=== PATIENT | female | born 1985 | race Caucasian/White ===

== ENCOUNTER 2021-06-30 09:03 | Emergency (ER) | payer OTHER, SELFPAY ==
--- NOTE | 2021-06-30 09:05 | ED.GENADUL_ITS ---
Discharge Plan Disposition Patient Disposition: HOME Condition: Fair Discharge Details Clinical Impression: Anxiety and depression Primary Care Provider: Odessa Velazquez ED Provider: Odessa Velazquez Home Meds and New Rx's Prescriptions: New clonazepam 1 mg tablet 1 mg PO BID PRNQty: 6 RF: 0 Continued escitalopram oxalate 10 mg Tablet 15 mg PO DAILY RF: 0 aripiprazole 2 mg Tablet 2 mg PO DAILY RF: 0 Discharge Instructions Instructions: Anxiety (ED) Referrals: Practice Provider [Provider Group] (follow up with outpatient psychiatry as soon as possible. return to ED sooner for new or worseniing issues or concerns) Medical Decision Making patient presents with poorly controlled anxiety and depression, stating she having a panic attack. will obtain medical screening. given ativan 0.5 mg PO for symptoms Medical screening cleared for psychiatric consultation which is placed with Dr Duenas recommendations for discharge to home with outpatient f/u with her psychiatric team in 3 days when she returns home. Lab Data Lab results reviewed: Yes I reviewed the patient's lab results. Lab results narrative: Laboratory Tests Range/Units 06/30/21 06/30/21 06/30/21 09:39 09:39 09:45 WBC (4.4-10.8) 10^3/uL RBC (3.93-5.22) 10^6/uL Hgb (11.2-15.7) g/dL Hct (36.0-46.0) % MCV (80-95) fL MCH (27.0-33.0) pg MCHC (32.0-36.0) % RDW (11.7-14.6) % Plt Count (130-400) 10^3/uL MPV (8.0-11.0) fL Immature Gran % Neutrophils % Lymphocytes % Monocytes % Eosinophils % Basophils % Nucleated RBC % % Absolute Neutrophils (1.2-6.7) 10^3/uL Absolute Lymphocytes (1.2-3.4) 10^3/uL Absolute Monocytes (0.1-0.8) 10^3/uL Absolute Eosinophils (0.0-0.7) 10^3/uL Absolute Basophils (0.0-0.2) 10^3/uL Sodium (136-145) mmol/L 139 Potassium (3.5-5.1) mmol/L 3.6 Chloride (98-107) mmol/L 103 Carbon Dioxide (21.0-32.0) mmol/L 30.4 Anion Gap (3-11) mmol/L 5.6 BUN (7-18) mg/dL 5 L Creatinine (0.55-1.02) mg/dL 0.7 Estimated GFR/1.73 m2 (mL/min/1.73m2) >= 60.00 Glucose (74-106) mg/dL 110 H Calcium (8.5-10.1) mg/dL 9.1 Total Bilirubin (0.2-1.0) mg/dL 0.7 AST (15-37) U/L 12 L ALT (14-59) U/L 24 Alkaline Phosphatase (46-116) U/L 27 L Total Protein (6.4-8.2) g/dL 8.1 Albumin (3.4-5.0) g/dL 4.2 TSH (0.36-3.74) uIU/mL 1.14 Urine Color (Yellow) Yellow Urine Clarity (Clear) Clear Urine pH (5-8) 7.0 Ur Specific [place] (1.005-1.025) 1.020 Urine Protein (Negative) mg/dL Negative Urine Ketones (Negative) mg/dL 15 H Urine Blood (Negative) Moderate H Urine Nitrite (Negative) Negative Urine Bilirubin (Negative) Negative Urine Urobilinogen (Up TO 0.2) EU/dL 0.2 Ur Leukocyte Esterase (Negative) Negative Urine RBC (0-2) HPF 5-10 H Urine WBC (0-5) HPF 0-2 Ur Epithelial Cells (Negative) HPF Rare Urine Crystals (Negative) HPF Negative Urine Bacteria (Negative) HPF Negative Urine Casts (Negative) LPF Negative Urine Mucus (Negative) Negative Ur Culture Indicated? No Urine Glucose (Negative) mg/dL Negative Salicylates (<2.8) mg/dL Urine Opiates Screen (Negative) Negative Urine Methadone Screen (Negative) Negative Acetaminophen (10-30) ug/mL Ur Barbiturates Screen (Negative) Negative Ur Tricyclics Screen (Negative) Negative Ur Amphetamines Screen (Negative) Negative U Benzodiazepines Scrn (Negative) Negative Urine Cocaine Screen (Negative) Negative Ur THC Screen (Negative) Negative Ethyl Alcohol (<3) mg/dL < 3.0 Range/Units 06/30/21 06/30/21 09:45 10:00 WBC (4.4-10.8) 10^3/uL 5.83 RBC (3.93-5.22) 10^6/uL 4.51 Hgb (11.2-15.7) g/dL 13.3 Hct (36.0-46.0) % 40.4 MCV (80-95) fL 89.6 MCH (27.0-33.0) pg 29.5 MCHC (32.0-36.0) % 32.9 RDW (11.7-14.6) % 12.0 Plt Count (130-400) 10^3/uL 303 MPV (8.0-11.0) fL 9.3 Immature Gran % 0.3 Neutrophils % 71.5 Lymphocytes % 17.0 Monocytes % 9.3 Eosinophils % 0.5 Basophils % 1.4 Nucleated RBC % % 0 Absolute Neutrophils (1.2-6.7) 10^3/uL 4.17 Absolute Lymphocytes (1.2-3.4) 10^3/uL 0.99 L Absolute Monocytes (0.1-0.8) 10^3/uL 0.54 Absolute Eosinophils (0.0-0.7) 10^3/uL 0.03 Absolute Basophils (0.0-0.2) 10^3/uL 0.08 Sodium (136-145) mmol/L Potassium (3.5-5.1) mmol/L Chloride (98-107) mmol/L Carbon Dioxide (21.0-32.0) mmol/L Anion Gap (3-11) mmol/L BUN (7-18) mg/dL Creatinine (0.55-1.02) mg/dL Estimated GFR/1.73 m2 (mL/min/1.73m2) Glucose (74-106) mg/dL Calcium (8.5-10.1) mg/dL Total Bilirubin (0.2-1.0) mg/dL AST (15-37) U/L ALT (14-59) U/L Alkaline Phosphatase (46-116) U/L Total Protein (6.4-8.2) g/dL Albumin (3.4-5.0) g/dL TSH (0.36-3.74) uIU/mL Urine Color (Yellow) Urine Clarity (Clear) Urine pH (5-8) Ur Specific [place] (1.005-1.025) Urine Protein (Negative) mg/dL Urine Ketones (Negative) mg/dL Urine Blood (Negative) Urine Nitrite (Negative) Urine Bilirubin (Negative) Urine Urobilinogen (Up TO 0.2) EU/dL Ur Leukocyte Esterase (Negative) Urine RBC (0-2) HPF Urine WBC (0-5) HPF Ur Epithelial Cells (Negative) HPF Urine Crystals (Negative) HPF Urine Bacteria (Negative) HPF Urine Casts (Negative) LPF Urine Mucus (Negative) Ur Culture Indicated? Urine Glucose (Negative) mg/dL Salicylates (<2.8) mg/dL < 2.8 Urine Opiates Screen (Negative) Urine Methadone Screen (Negative) Acetaminophen (10-30) ug/mL < 2 Ur Barbiturates Screen (Negative) Ur Tricyclics Screen (Negative) Ur Amphetamines Screen (Negative) U Benzodiazepines Scrn (Negative) Urine Cocaine Screen (Negative) Ur THC Screen (Negative) Ethyl Alcohol (<3) mg/dL HPI General Mode of arrival: ambulatory . Limitations to Documentation: no limitations . Information obtained by: patient . HPI Narrative: this is a 36 year old female with long standing history of anxiety depression, OCD who has required inpatient hospitalization for med and symptoms management. she is not homicidal or suicidal, with no history of either. she is on a one month leave of absence from work d/t her symptoms. she is here locally staying with her mom for support. recently started on abilify with no improvement in symptoms. she [place] outpatient psychiatrist [place] of state who oversees her care. they referred her to the ED as she feels in crisis Related Data Home Medications Medication Instructions Recorded Confirmed aripiprazole 2 mg PO DAILY 06/30/21 06/30/21 clonazepam 1 mg PO BID PRN #6 tab 06/30/21 escitalopram oxalate 15 mg PO DAILY 06/30/21 06/30/21 Previous Rx's Medication Instructions Recorded clonazepam 1 mg PO BID PRN #6 tab 06/30/21 Allergies Allergy/AdvReac Type Severity Reaction Status Date / Time No Known Drug Allergies Allergy Unverified 06/30/21 09:10 Review of Systems Constitutional Constitutional: Reports difficulty sleeping and Reports poor appetite Eyes Eyes: Denies change in vision ENT Ears, Nose, Mouth, and Throat: Denies vertigo and Denies dizziness Cardiovascular Cardiovascular: Reports chest pain Respiratory Respiratory: Denies chest congestion and Denies cough Gastrointestinal Gastrointestinal: Denies abdominal pain, Denies melena, Reports nausea and Denies vomiting Neurologic Neurologic: Denies vertigo, Denies dizziness and Denies seizure-like activity Psychiatric Psychiatric: Reports abnormal sleep pattern, Reports anxiety, Reports change in appetite, Reports depression, Reports anhedonia, Reports panic attacks, Denies visual hallucinations, Denies hallucinations, Denies homicidal ideation and Denies suicidal ideation [facility] Social History Smoking/Tobacco Use Status: Never Smoking risk assessment performed?: Yes Alcohol Intake: never Substance use type: does not use Do you feel safe at home: Yes Do you feel safe in your relationship?: Yes Exam Const General: cooperative, acute distress moderate and anxious (crying, shaking) Nutritional Appearance: thin Orientation: alert, awake and oriented x3 HENMT Head: normal to inspection, normocephalic and atraumatic Mouth: oral mucosae normal Resp Effort & Inspection: normal respiratory effort Auscultation: clear to auscultation bilaterally Cardio Rate: regular rate Rhythm: regular rhythm GI Inspection: normal to inspection Palpation: soft Auscultation: normal bowel sounds Skin General skin exam: no rashes or lesions noted Neuro General: patient alert, patient awake and patient oriented x3 Extrem General: normal to inspection, full ROM and no pedal edema Psych Appearance: disheveled Mental Status: mental status grossly normal Speech and Movement: speech and movement normal Mood: anxious mood Affect: sad and anxious affect Attitude: cooperative Thought Process: normal Thought Content: normal
[2021-06-30 09:06] VITALS: BP 159/98; PULSE 123; RESP 14; TEMP 36.3; O2SAT 97
--- NOTE | 2021-06-30 09:15 | RT.EKG_ITS ---
APPROVED REPORT Exam: Resting ECG Reason for Exam: chest pain Patient Location: E HR:86 bpm ECG Measurements Heart Rate 86 AXIS CA 123 P 29 QRSd 83 QRS 67 QT 379 T 14 QTc 454 Conclusion Sinus rhythm...normal P axis, V-rate 60- 99. Sinus. No STEMI. I have reviewed and interpreted ECG and agree with software generated interpretation.
[2021-06-30] MEDS: LORazepam 0.5 MG TAB PO (09:52)
[2021-06-30 09:58] LABS: Bilirubin Negative (Negative); Blood Moderate (Negative); Clarity Clear (Clear); Glucose Negative (Negative); Ketones 15 mg/dL (Negative); Leukocyte Esterase Negative (Negative); Nitrite Negative (Negative); Urobilinogen 0.2 EU/dL (Up TO 0.2)
[2021-06-30 10:00] LABS: Abs Immature Grans 0.02 10^3/uL (0.0-0.06); Absolute Basophil Count 0.08 10^3/uL (0.0-0.2); Absolute Eosinophil Count 0.03 10^3/uL (0.0-0.7); Absolute Lymphocyte Count 0.99 10^3/uL (1.2-3.4); Absolute Monocyte Count 0.54 10^3/uL (0.1-0.8); Absolute Neutrophil Count 4.17 10^3/uL (1.2-6.7); Basophils % 1.4; Eosinophils % 0.5; HCT 40.4 % (36.0-46.0); HGB 13.3 g/dL (11.2-15.7); Immature Grans % 0.3; MCH 29.5 pg (27.0-33.0); MCHC 32.9 % (32.0-36.0); MCV 89.6 fL (80-95); MPV 9.3 fL (8.0-11.0); Monocytes % 9.3; Neutrophils % 71.5; Nucleated RBC 0 %; Platelet Count 303 10^3/uL (130-400); RBC 4.51 10^6/uL (3.93-5.22); RDW-SD 39.3 fL; WBC 5.83 10^3/uL (4.4-10.8)
[2021-06-30 10:05] LABS: *AMPHETAMINES SCREEN URINE Negative (Negative); *BARBITURATES SCREEN URINE Negative (Negative); *BENZODIAZEPINES SCREEN URINE Negative (Negative); Cannabinoids THC Negative (Negative); Cocaine Screen,Urine Negative (Negative); METHADONE URINE SCREEN Negative (Negative); OPIATES URINE SCREEN Negative (Negative)
[2021-06-30 10:07] LABS: Tricyclic Antidepressants Negative (Negative)
[2021-06-30 10:08] LABS: Bacteria Negative HPF (Negative); C & S Indicated? No; Casts Negative LPF (Negative); Crystals Negative HPF (Negative); Epithelial Cells Rare HPF (Negative); Mucus Negative (Negative); WBC 0-2 HPF (0-5)
[2021-06-30 10:13] LABS: ALT 24 U/L (14-59); AST 12 U/L (15-37); Albumin 4.2 g/dL (3.4-5.0); Alkaline Phosphatase 27 U/L (46-116); Anion Gap 5.6 mmol/L (3-11); BUN 5 mg/dL (7-18); Bilirubin, Total 0.7 mg/dL (0.2-1.0); CO2 30.4 mmol/L (21.0-32.0); CREATININE 0.7 mg/dL (0.55-1.02); Calcium 9.1 mg/dL (8.5-10.1); Chloride 103 mmol/L (98-107); ETHANOL BLOOD < 3.0 mg/dL (<3); Glucose 110 mg/dL (74-106); Potassium 3.6 mmol/L (3.5-5.1); Sodium 139 mmol/L (136-145); TSH (W/Ref FT4) 1.14 uIU/mL (0.36-3.74); Total Protein 8.1 g/dL (6.4-8.2)
[2021-06-30 10:30] LABS: Acetaminophen < 2 ug/mL (10-30); Salicylate < 2.8 mg/dL (<2.8)
[2021-06-30 10:41] VITALS: BP 128/84; PULSE 74; TEMP 36.7; O2SAT 98
--- NOTE | 2021-06-30 11:55 | NUR.NOTE ---
Nursing Note: Assumed care at this time.
--- NOTE | 2021-06-30 12:50 | NUR.NOTE ---
Nursing Note:Pt provided lunch tray. Mother offered lunch as well, declined.
--- NOTE | 2021-06-30 13:46 | PSYCO_ITS ---
Date of service: 06/30/21 Time of Service: 13:46 History of Present Illness History of Present Illness Chief Complaint: I can't function Narrative: 4 hour telepsychiatry consultation requested by Odessa Velazquez for assessment of acute anxiety and recommendations for management. Acute symptoms have included intense anxiety and fear with physical symptoms including tremors, racing heartbeat, lightheadedness. She's also had profound di sruptions to sleep with three days of insomnia. Psycho motor activation is also noted with restlessness, pacing, hand ringing. Onset of his symptoms began approximately six months ago upon gradual discontinuation of Lexapro which she had taken for depression and anxiety to get affect. She believes she no longer needed and stopped it on her own over the course of a few weeks. Symptoms returned and intensified gradually over the ensuing months. The last three months have seen an increasing intensification of anxiety symptoms, depression including low mood, disturbed sleep, decreased appetite with weight loss of 20 pounds. She also identifies symptoms of obsessive compulsive disorder including intense nonstop rumination and compulsions to seek reassurance from others. She has been on medical leave and completely disabled due to the symptoms for approximately the last month. She recently traveled from [place] [facility] to her mothers in [place] due to the severity of her symptoms. Also she reports ending in a romantic relationship or taking a break due to the severity of her symptoms. She denies manic symptoms or psychotic symptoms. She denies any current suicidal ideation. She has no past history of self harm. She reports onset of anxiety in childhood. She experienced a traumatic of her father at age 14 from cancer. She begin therapy in high school and continue to college. She took prazosin in college at [employer] [employer] for duration unknown. She did not find a particular helpful. She has engaged in counseling on and off throughout high school college and early adulthood. She had been prescribed Lexapro 10 mg daily by her primary care provider. She stopped this on her own when she felt like she had fully recovered. In late May, she was psychiatrically hospitalized for approximately one week at [facility] outside of [place]. She reported that Lexapro was subsequently increased to 20 mg daily. Also Abilify 2 mg daily was recommended, though she only started taking that two days ago. She has a new psychiatrist at [facility] as well as an outpatient therapist. Her psychologist at [facility] recently also prescribed clonazepam 0.5 mg twice daily, which she is unable to access because they are at a pharmacy in [place]. In addition to [facility] mental health treatment, she has been referred to a program at [facility] that sounds like an intensive outpatient program or partial hospital program. She indicates that she received a call from them yesterday, but has been unable to return the call. While in the Emergency Department, she received a lorazepam 0.5 mg time one to moderate effect. She further indicates that she plans to return home to [place] in the next few days and engage in the program at [facility], but is having difficulty managing etreme anxiety and panic in the interval. [facility] of [facility] reveals an active presciption for clonazepam 0.5 mg BID available for lemon picker in [place]. We discuss discharge from the ED with a 3 day supply of clonazepam 1 mg BID with a plan to follow up with outpatient providers and IOP/PHP program to which she has already been confirmed. She is agreeable to this and plan is discussed with Odessa Velazquez, who is also in agreement. Consults Consult date: 06/30/21 Assessment and Plan Assessment and plan (1) Panic anxiety syndrome: Status: Acute Assessment and plan: clonazepam 1 mg BID x 3 days Follow up with existing program and providers in [place] upon discharge If sx worsen, seek emergency or crisis evaluation Review of Systems All systems reviewed & are unremarkable except as noted in HPI and below PFSH Social History Smoking/Tobacco Use Status: Never Smoking risk assessment performed?: Yes Alcohol Intake: never Substance use type: does not use Do you feel safe at home: Yes Do you feel safe in your relationship?: Yes Exam Psych Appearance: other (thin, shaky) Mental Status: other (depressed, hopeless, helpless) Speech and Movement: pressured speech and restless Mood: anxious mood, dysthymic mood and other (depressed, hopeless, helpless) Affect: sad and anxious affect Attitude: cooperative Thought Process: perseverating and other (obsessive rumination) Thought Content: compulsions Insight: insight good Judgment: judgment good Results Last Vital Signs Temp 36.7 C 06/30/21 10:41 Pulse 74 06/30/21 10:41 Resp 14 06/30/21 09:06 BP 128/84 06/30/21 10:41 Pulse Ox 98 06/30/21 10:41 Labs Result diagrams: 06/30/21 09:45 06/30/21 09:45 Labs: Laboratory Results - last 24 hr 06/30/21 06/30/21 06/30/21 09:39 09:39 09:45 WBC RBC Hgb Hct MCV MCH MCHC RDW Plt Count MPV Immature Gran % Neutrophils % Lymphocytes % Monocytes % Eosinophils % Basophils % Nucleated RBC % Absolute Neutrophils Absolute Lymphocytes Absolute Monocytes Absolute Eosinophils Absolute Basophils Sodium 139 Potassium 3.6 Chloride 103 Carbon Dioxide 30.4 Anion Gap 5.6 BUN 5 L Creatinine 0.7 Estimated GFR/1.73 m2 >= 60.00 Glucose 110 H Calcium 9.1 Total Bilirubin 0.7 AST 12 L ALT 24 Alkaline Phosphatase 27 L Total Protein 8.1 Albumin 4.2 TSH 1.14 Urine Color Yellow Urine Clarity Clear Urine pH 7.0 Ur Specific [place] 1.020 Urine Protein Negative Urine Ketones 15 H Urine Blood Moderate H Urine Nitrite Negative Urine Bilirubin Negative Urine Urobilinogen 0.2 Ur Leukocyte Esterase Negative Urine RBC 5-10 H Urine WBC 0-2 Ur Epithelial Cells Rare Urine Crystals Negative Urine Bacteria Negative Urine Casts Negative Urine Mucus Negative Ur Culture Indicated? No Urine Glucose Negative Salicylates Urine Opiates Screen Negative Urine Methadone Screen Negative Acetaminophen Ur Barbiturates Screen Negative Ur Tricyclics Screen Negative Ur Amphetamines Screen Negative U Benzodiazepines Scrn Negative Urine Cocaine Screen Negative Ur THC Screen Negative Ethyl Alcohol < 3.0 06/30/21 06/30/21 09:45 10:00 WBC 5.83 RBC 4.51 Hgb 13.3 Hct 40.4 MCV 89.6 MCH 29.5 MCHC 32.9 RDW 12.0 Plt Count 303 MPV 9.3 Immature Gran % 0.3 Neutrophils % 71.5 Lymphocytes % 17.0 Monocytes % 9.3 Eosinophils % 0.5 Basophils % 1.4 Nucleated RBC % 0 Absolute Neutrophils 4.17 Absolute Lymphocytes 0.99 L Absolute Monocytes 0.54 Absolute Eosinophils 0.03 Absolute Basophils 0.08 Sodium Potassium Chloride Carbon Dioxide Anion Gap BUN Creatinine Estimated GFR/1.73 m2 Glucose Calcium Total Bilirubin AST ALT Alkaline Phosphatase Total Protein Albumin TSH Urine Color Urine Clarity Urine pH Ur Specific [place] Urine Protein Urine Ketones Urine Blood Urine Nitrite Urine Bilirubin Urine Urobilinogen Ur Leukocyte Esterase Urine RBC Urine WBC Ur Epithelial Cells Urine Crystals Urine Bacteria Urine Casts Urine Mucus Ur Culture Indicated? Urine Glucose Salicylates < 2.8 Urine Opiates Screen Urine Methadone Screen Acetaminophen < 2 Ur Barbiturates Screen Ur Tricyclics Screen Ur Amphetamines Screen U Benzodiazepines Scrn Urine Cocaine Screen Ur THC Screen Ethyl Alcohol
[2021-06-30] MEDS: Acetaminophen 500 MG TAB 1000 MG PO (13:49)
[2021-06-30] MEDS: clonazePAM 1 MG TAB PO (13:49)
[2021-06-30 13:51] VITALS: BP 129/87; PULSE 91; RESP 14; TEMP 37.1; O2SAT 98
== END 2021-06-30 13:55 | disposition home or self-care (01) ==
PROVIDERS: Emergency Provider Nurse Practitioner Acute Care; PCP Nurse Practitioner Acute Care
DX: F41.9 Anxiety disorder, unspecified (principal); F32.9 Major depressive disorder, single episode, unspecified
CPT/HCPCS: 36415; 80053; 80307; 81025; 93005; 99283; Q3014; 80320; 80329; 81003; 81015; 84443; 85025; 93010

== ENCOUNTER 2021-11-11 11:43 | Observation (INO) | payer OTHER, SELFPAY ==
[2021-11-11 11:50] VITALS: BP 136/57; PULSE 88; RESP 16; TEMP 37.2; O2SAT 99
[2021-11-11] MEDS: LORazepam 2 MG/ML VIAL 1 MG IVP ×2 (12:13→12:35)
[2021-11-11 13:24] LABS: Abs Immature Grans 0.01 10^3/uL (0.0-0.06); Absolute Basophil Count 0.05 10^3/uL (0.0-0.2); Absolute Eosinophil Count 0.09 10^3/uL (0.0-0.7); Absolute Lymphocyte Count 1.65 10^3/uL (1.2-3.4); Absolute Monocyte Count 0.55 10^3/uL (0.1-0.8); Absolute Neutrophil Count 3.52 10^3/uL (1.2-6.7); Basophils % 0.9; Eosinophils % 1.5; HCT 37.1 % (36.0-46.0); HGB 12.2 g/dL (11.2-15.7); Immature Grans % 0.2; Lymphocytes % 28.1; MCH 28.4 pg (27.0-33.0); MCHC 32.9 % (32.0-36.0); MCV 86.5 fL (80-95); MPV 9.8 fL (8.0-11.0); Monocytes % 9.4; Neutrophils % 59.9; Nucleated RBC 0 %; Platelet Count 261 10^3/uL (130-400); RBC 4.29 10^6/uL (3.93-5.22); RDW 12.4 % (11.7-14.6); RDW-SD 39.4 fL; WBC 5.87 10^3/uL (4.4-10.8)
[2021-11-11 13:46] LABS: ALT 30 U/L (14-59); AST 16 U/L (15-37); Albumin 4.7 g/dL (3.4-5.0); Alkaline Phosphatase 41 U/L (46-116); Anion Gap 9.5 mmol/L (3-11); BUN 10 mg/dL (7-18); Bilirubin, Total 0.7 mg/dL (0.2-1.0); CO2 27.5 mmol/L (21.0-32.0); CREATININE 0.6 mg/dL (0.55-1.02); Calcium 9.3 mg/dL (8.5-10.1); Chloride 104 mmol/L (98-107); Glucose 90 mg/dL (74-106); Potassium 3.6 mmol/L (3.5-5.1); Sodium 141 mmol/L (136-145); TSH (W/Ref FT4) 0.65 uIU/mL (0.36-3.74)
[2021-11-11 13:51] LABS: Acetaminophen < 2 ug/mL (10-30); Salicylate < 2.8 mg/dL (<2.8)
[2021-11-11 13:56] LABS: *AMPHETAMINES SCREEN URINE Negative (Negative); *BARBITURATES SCREEN URINE Negative (Negative); *BENZODIAZEPINES SCREEN URINE Negative (Negative); Cannabinoids THC Negative (Negative); Cocaine Screen,Urine Negative (Negative); METHADONE URINE SCREEN Negative (Negative); OPIATES URINE SCREEN Negative (Negative)
[2021-11-11 13:56] LABS: ETHANOL BLOOD < 3.0 mg/dL (<10)
[2021-11-11 13:57] LABS: Tricyclic Antidepressants Negative (Negative)
[2021-11-11] MEDS: Memantine 5 MG TAB PO (14:32)
[2021-11-11] MEDS: OLANZapine 5 MG TAB 2.5 MG PO (14:33)
[2021-11-11 14:59] LABS: Source Nasal/Nares
--- NOTE | 2021-11-11 15:13 | PDOC.MHCN_ITS ---
Date of service: 11/11/21 Time of Service: 15:13 Mental Health Crisis Note Presenting Issue How did you arrive at the ED and why did you come: Client arrived at [facility] ED via ambulance with persistent SI with intent and plan. Client is also diagnosed with OCD and is observed stating: I want to . Precipitating Factors Client states that she is currently endorsing SI with intent 7/10 and plan to hang herself. Disposition BEHAVIOR: Client is sitting up in hospital bed dressed in proper paper hospital attire. 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 EYE CONTACT: Client makes good eye contact. MOOD: Clients mood appears to be depressed and hopeless, she is observed to be tearful at times throughout assessment. AFFECT: Clients affect is flat. APPETITE: Client states that her appetite has been ok, however she vomits every morning as that when her anxiety is the worst. SLEEP(trouble falling/staying asleep: Client states that her sleep has been ok, but she gets up early every morning at about 5 or 6. Plan Client will remain at [facility] ED on voluntary status pending inpatient admission. Client will be seen daily by [facility] until she is placed. Signature Clinician's Name/Title: Yana Nguyen [facility] Emergency Clinician
--- NOTE | 2021-11-11 15:34 | ED.GENADUL_ITS ---
Discharge Plan Discharge Details Chief Complaint: PsychEval Primary Care Provider: Odessa Velazquez ED Provider: Matt Hayward Home Meds and New Rx's Prescriptions: No Action lorazepam [Ativan] 1 mg Tablet 1 mg PO BID 0RF escitalopram oxalate [Lexapro] 20 mg Tablet 30 mg PO DAILY 0RF memantine [Namenda] 5 mg Tablet 5 mg PO QAM 0RF Medical Decision Making <WILLA Shi - Last Filed: 11/12/21 12:56> Patient received 3 mg of IM Ativan secondary to acute agitation and anxiety, and she has been cooperative but difficult to assess given her level of anxiety and obsessions When her mother arrived she was able to be assessed by mental health provider Yana and patient is voluntary status at this time Administer 2.5 mg of Zyprexa which she will receive twice daily Administered 5 mg of amantadine which she receives once daily Pending placement at this time Alert, oriented, pleasant at time of reassessment care transitioned to Domenico Whitaker NP pending placement voluntary admission status Medical Records Medical records reviewed: Yes I reviewed the patient's medical records. Lab Data Lab results reviewed: Yes I reviewed the patient's lab results. <Femi Enriquez NP - Last Filed: 11/11/21 22:57> Patient received 3 mg of IM Ativan secondary to acute agitation and anxiety, and she has been cooperative but difficult to assess given her level of anxiety and obsessions When her mother arrived she was able to be assessed by mental health provider Yana and patient is voluntary status at this time Administer 2.5 mg of Zyprexa which she will receive twice daily Administered 5 mg of amantadine which she receives once daily Pending placement at this time Alert, oriented, pleasant at time of reassessment care transitioned to Domenico Whitaker NP pending placement voluntary admission status 1635-assumed care of patient. No change in patient condition and waiting admission 2245-patient sleeping in room and staff states that patient has had no complaints or no further crying episodes since being here and receiving medication. She did eat her evening meal and has requested to sleep the rest the evening. Given no further complaints I did not need to reassess patient or perform any further interventions. <Matt Hayward MD - Last Filed: 11/12/21 20:13> Patient received 3 mg of IM Ativan secondary to acute agitation and anxiety, and she has been cooperative but difficult to assess given her level of anxiety and obsessions When her mother arrived she was able to be assessed by mental health provider Yana and patient is voluntary status at this time Administer 2.5 mg of Zyprexa which she will receive twice daily Administered 5 mg of amantadine which she receives once daily Pending placement at this time Alert, oriented, pleasant at time of reassessment care transitioned to Domenico Whitaker NP pending placement voluntary admission status 1635-assumed care of patient. No change in patient condition and waiting admission 2245-patient sleeping in room and staff states that patient has had no complaints or no further crying episodes since being here and receiving medication. She did eat her evening meal and has requested to sleep the rest the evening. Given no further complaints I did not need to reassess patient or perform any further interventions. 11/12 2212 patient signed out to me still pending psych placement no code greys during the day is currently calm and cooperative in no distress will continue to monitor HPI <WILLA Shi - Last Filed: 11/12/21 12:56> General Date/Time Provider Initiated Documentation: 11/11/21 11:51 . HPI Narrative: This 36-year-old female with history of borderline personality disorder, obsessive-compulsive disorder, and anxiety presents with worsening anxiety and suicidal ideation without plan that she is endorsing to me. Denies any attempts to harm self today. Was recently hospitalized at [facility] in [place] and discharged approximately a week ago. After discussion with patient oncology social worker and her psychiatrist at [facility], and I was made aware that she is been hospitalized 10 times in the past 10 months. She denies any pain complaints. She does report that she has been taking her medications at home. The report from her care team was but she is not taking the medication prescribed by the psychiatrist at [facility]. These medications include 2.5 mg of Zyprexa twice daily and memantine 5 mg. Patient denies any illicit drug use or alcohol consumption. Denies any recent events that have contributed to her symptoms. She was discharged into the care of her mother in [place] a week ago. Related Data Home Medications Medication Instructions Recorded Confirmed escitalopram oxalate 20 mg tablet 30 mg PO DAILY 11/11/21 11/11/21 (Lexapro) lorazepam 1 mg tablet (Ativan) 1 mg PO BID 11/11/21 11/11/21 memantine 5 mg tablet (Namenda) 5 mg PO QAM 11/11/21 11/11/21 Allergies Allergy/AdvReac Type Severity Reaction Status Date / Time No Known Drug Allergies Allergy Unverified 06/30/21 09:10 cats Allergy Uncoded 11/11/21 11:55 General Stated Complaint: PsychEval JASKARAN: 2 Review of Systems <WILLA Shi - Last Filed: 11/12/21 12:56> All systems reviewed & are unremarkable except as noted in HPI and below PFSH <WILLA Shi - Last Filed: 11/12/21 12:56> All Active Problems (Updated 06/30/21 @ 14:04 by Austen Bolton MD) Panic anxiety syndrome (Acute) Anxiety and depression (Chronic) Social History Smoking/Tobacco Use Status: Never Smoking risk assessment performed?: Yes Alcohol Intake: never Substance use type: does not use Do you feel safe at home: Yes Do you feel safe in your relationship?: Yes Exam <WILLA Shi Last Filed: 11/12/21 12:56> Const General: cooperative and anxious Resp Effort & Inspection: normal respiratory effort Cardio Rate: regular rate Rhythm: regular rhythm GI Inspection: normal to inspection Skin General skin exam: no rashes or lesions noted Neuro General: patient alert and patient oriented x3 Cranial Nerves: CN's II-XI intact bilaterally Extrem General: normal to inspection Psych Appearance: well kempt Speech and Movement: agitated Mood: anxious mood Affect: labile affect Attitude: cooperative Thought Process: perseverating and tangential Thought Content: compulsions Insight: limited Judgment: limited Course <WILLA Shi Last Filed: 11/12/21 12:56> Vital Signs Vital signs: Vital Signs Temperature 37.2 C 11/11/21 11:50 Pulse 88 11/11/21 11:50 Respiratory Rate 16 11/11/21 11:50 Blood Pressure 136/57 L 11/11/21 11:50 Pulse Oximetry 99 11/11/21 11:50 Temperature 37.2 C 11/11/21 11:50 Temperature Source Skin 11/11/21 11:50 Pulse 88 02/25/22 11:50 Respiratory Rate 16 11/11/21 11:50 Respiratory Effort 11/11/21 11:50 Blood Pressure 136/57 L 11/11/21 11:50 Blood Pressure Position Sitting 11/11/21 11:50 Pulse Oximetry 99 11/11/21 11:50 Oxygen Delivery Method Room Air 11/11/21 11:50 Oxygen Flow Rate 0 11/11/21 11:50 Pain Level 0 11/11/21 11:50 Lab/Test Results Lab/Test Results: Laboratory Tests Range/Units 11/11/21 11/11/21 11/11/21 13:00 13:00 13:00 WBC (4.4-10.8) 10^3/uL 5.87 RBC (3.93-5.22) 10^6/uL 4.29 Hgb (11.2-15.7) g/dL 12.2 Hct (36.0-46.0) % 37.1 MCV (80-95) fL 86.5 MCH (27.0-33.0) pg 28.4 MCHC (32.0-36.0) % 32.9 RDW (11.7-14.6) % 12.4 Plt Count (130-400) 10^3/uL 261 MPV (8.0-11.0) fL 9.8 Immature Gran % 0.2 Neutrophils % 59.9 Lymphocytes % 28.1 Monocytes % 9.4 Eosinophils % 1.5 Basophils % 0.9 Nucleated RBC % % 0 Absolute Neutrophils (1.2-6.7) 10^3/uL 3.52 Absolute Lymphocytes (1.2-3.4) 10^3/uL 1.65 Absolute Monocytes (0.1-0.8) 10^3/uL 0.55 Absolute Eosinophils (0.0-0.7) 10^3/uL 0.09 Absolute Basophils (0.0-0.2) 10^3/uL 0.05 Sodium (136-145) mmol/L 141 Potassium (3.5-5.1) mmol/L 3.6 Chloride (98-107) mmol/L 104 Carbon Dioxide (21.0-32.0) mmol/L 27.5 Anion Gap (3-11) mmol/L 9.5 BUN (7-18) mg/dL 10 Creatinine (0.55-1.02) mg/dL 0.6 Estimated GFR/1.73 m2 (mL/min/1.73m2) >= 60.00 Glucose (74-106) mg/dL 90 Calcium (8.5-10.1) mg/dL 9.3 Total Bilirubin (0.2-1.0) mg/dL 0.7 AST (15-37) U/L 16 ALT (14-59) U/L 30 Alkaline Phosphatase (46-116) U/L 41 L Total Protein (6.4-8.2) g/dL 8.0 Albumin (3.4-5.0) g/dL 4.7 TSH (0.36-3.74) uIU/mL 0.65 Salicylates (<2.8) mg/dL < 2.8 Urine Opiates Screen (Negative) Urine Methadone Screen (Negative) Acetaminophen (10-30) ug/mL < 2 Ur Barbiturates Screen (Negative) Ur Tricyclics Screen (Negative) Ur Amphetamines Screen (Negative) U Benzodiazepines Scrn (Negative) Urine Cocaine Screen (Negative) Ur THC Screen (Negative) Ethyl Alcohol (<10) mg/dL < 3.0 COVID-19 Source Range/Units 11/11/21 11/11/21 13:10 14:37 WBC (4.4-10.8) 10^3/uL RBC (3.93-5.22) 10^6/uL Hgb (11.2-15.7) g/dL Hct (36.0-46.0) % MCV (80-95) fL MCH (27.0-33.0) pg MCHC (32.0-36.0) % RDW (11.7-14.6) % Plt Count (130-400) 10^3/uL MPV (8.0-11.0) fL Immature Gran % Neutrophils % Lymphocytes % Monocytes % Eosinophils % Basophils % Nucleated RBC % % Absolute Neutrophils (1.2-6.7) 10^3/uL Absolute Lymphocytes (1.2-3.4) 10^3/uL Absolute Monocytes (0.1-0.8) 10^3/uL Absolute Eosinophils (0.0-0.7) 10^3/uL Absolute Basophils (0.0-0.2) 10^3/uL Sodium (136-145) mmol/L Potassium (3.5-5.1) mmol/L Chloride (98-107) mmol/L Carbon Dioxide (21.0-32.0) mmol/L Anion Gap (3-11) mmol/L BUN (7-18) mg/dL Creatinine (0.55-1.02) mg/dL Estimated GFR/1.73 m2 (mL/min/1.73m2) Glucose (74-106) mg/dL Calcium (8.5-10.1) mg/dL Total Bilirubin (0.2-1.0) mg/dL AST (15-37) U/L ALT (14-59) U/L Alkaline Phosphatase (46-116) U/L Total Protein (6.4-8.2) g/dL Albumin (3.4-5.0) g/dL TSH (0.36-3.74) uIU/mL Salicylates (<2.8) mg/dL Urine Opiates Screen (Negative) Negative Urine Methadone Screen (Negative) Negative Acetaminophen (10-30) ug/mL Ur Barbiturates Screen (Negative) Negative Ur Tricyclics Screen (Negative) Negative Ur Amphetamines Screen (Negative) Negative U Benzodiazepines Scrn (Negative) Negative Urine Cocaine Screen (Negative) Negative Ur THC Screen (Negative) Negative Ethyl Alcohol (<10) mg/dL COVID-19 Source Nasal/Nares Sign Out <WILLA Shi - Last Filed: 11/12/21 12:56> Sign Out Data: Sign Out Comment: voluntary status pending psychiatric hospitalization for SI, OCD, boderline Last updated by Annabella Dudley PA at 11/11/21 16:32 Sign Out Comment: Patient pending psychiatric hospitalization for suicidal ideations without reported specific plan, OCD, and borderline personality. Last updated by Femi Enriquez NP at 11/11/21 23:48 Sign Out Comment: pt voluntary for SI, stable during overnight shift Last updated by Matt Hayward MD at 11/12/21 00:11 Sign Out Comment: [facility] re-considering accepting patient, pending review of meds and availability Last updated by Bereket Shepard MD at 11/12/21 19:57
[2021-11-11 15:43] LABS: COVID-19 PCR Negative (Negative)
[2021-11-11] MEDS: LORazepam 1 MG TAB PO (15:57)
--- NOTE | 2021-11-11 17:14 | PDOC.CMSAFED ---
- If Service Date Differs Date of service: 11/11/21 Time of Service: 17:14 Care Management Safety Plan Status: Voluntary - Reason for Wait Reason for Wait: Inpatient Admission CHIEF COMPLAINT: Ramona is a 36 year old female from [place] who is currently in [place] visiting her mom. She presents in the ED due to persistent suicidal ideation with intent and plan to hang herself. Per doctor's note, Ramona has a history of obsessive-compulsive disorder, borderline personality disorder, and anxiety disorder. She reportedly was psychiatrically hospitalized at [facility] in [place] and discharged a week ago. She sees a psychiatrist in [place] and is prescribed Zyprexa 2.5 mg twice daily and Memantine 5 mg but per ED provider who spoke with patient's psychiatrist, Ramona has not been compliant with taking her medications. Ramona was assessed by Yana [facility] Net Washer, and she was found to meet criteria for a voluntary hospitalization. Referrals are faxed to [facility], [facility], [facility], [facility], [place] ([facility]) and [facility] ([facility]) for review. CM will continue to follow. VOLUNTARY FOR INPATIENT PSYCHIATRIC STABILIZATION. Patient is appropriate in all interactions since arriving at [facility]; Pt has demonstrated appropriate coping and communication skills, has articulated his or her needs and concerns and is fully engaged during staff interactions. A huddle is done at approximately 16:30 with Tia, nursing supervisor travel information center, Dylan, charge nurse, and STACI Palumbo, in attendance. Other staff are unable to participate in the huddle due to patient volume in the ED. Safety plan has been established with patient, and care team, to adhere to patient goals, identify restrictions based on behavioral status, address nutrition, and determine allowed personal belongings, tools for hygiene and personal care. Determine level of activity including ambulation, level of supervision, visitors, and determine privileges based on behaviors and level of engagement by pt. SAFETY PLAN: 1. Will remain on suicide precautions. In Paper Clothes 2. Will remain in room under direct supervision of one-on-one staff at all times provided by [employer]PS[employer], EMEKA, INTERNAL COMMUNICATIONS MANAGER exchange floor manager. 3. May have paper cups, plates, finger foods as well as a cardboard spoon with which to eat meals. 4. Follow [facility] Management of the Admitted Behavioral Health Patient policy. 5. Shower permitted with supervision and at RN discretion. 6. No personal belongings. 7. Visitors-none at this time. 8. Activities: soft cart items, coloring book, crayons, music tablet, television and remote, and other activities at RN discretion. 9. Bathroom privileges with escort in the ED, available in room without limitation on M/S. 10. Phone: May use [employer] hospital phone at RN discretion. 11. Due to VOLUNTARY status, if patient wishes to leave [facility], staff will contact [facility] Crisis Screener ([phone]) and On-Call Data Center Engineer ([phone]) as soon as possible. In the event of elopement, notify [facility] Police ([phone]). Patient is currently voluntarily at [facility] and seeking inpatient admission when a bed becomes available. [facility] Frontline Net Washer will continue seeking placement. Please contact the Product Safety Technician Data Center Engineer ([phone]) and [facility] Net Washer ([phone]) for any needed changes in the Safety Plan. Safety plan has been provided to interdepartmental care team.
[2021-11-11 20:46] VITALS: BP 93/54; PULSE 58; RESP 14; TEMP 36.8; O2SAT 97
[2021-11-11] MEDS: OLANZapine 2.5 MG TAB PO (20:49)
[2021-11-12] MEDS: Memantine 5 MG TAB PO (08:28)
[2021-11-12] MEDS: OLANZapine 2.5 MG TAB PO (08:28)
[2021-11-12 08:29] VITALS: BP 95/61; PULSE 90; RESP 18; TEMP 37.2; O2SAT 97
[2021-11-12] MEDS: LORazepam 1 MG TAB PO ×3 (09:03→15:08)
--- NOTE | 2021-11-12 14:26 | CMSP_ITS ---
- If Service Date Differs Date of service: 11/12/21 Time of Service: 14:27 Care Management Safety Plan Status: Voluntary - Reason for Wait Reason for Wait: Inpatient Admission CHIEF COMPLAINT: Ramona is a 36 year old female from [place] who is currently in [place] visiting her mom. She presents in the ED due to persistent suicidal ideation with intent and plan to hang herself. Per doctor's note, Ramona has a history of obsessive-compulsive disorder, borderline personality disorder, and anxiety disorder. She reportedly was psychiatrically hospitalized at [facility] in [place] and discharged a week ago. She sees a psychiatrist in [place] and is prescribed Zyprexa 2.5 mg twice daily and Memantine 5 mg but per ED provider who spoke with patient's psychiatrist, Ramona has not been compliant with taking her medications. Ramona was re-assessed by Geena Figueroa, [facility] Table And Desk Finisher, and she was found to still meet criteria for a voluntary hospitalization. No neds are available until [facility] [place]. [facility] declined her.[facility] has requested additional clinical notes and the [address], [facility] and [place] have no available beds. CM will continue to follow. VOLUNTARY FOR INPATIENT PSYCHIATRIC STABILIZATION. Patient is appropriate in all interactions since arriving at [facility]; Pt has demonstrated appropriate coping and communication skills, has articulated his or her needs and concerns and is fully engaged during staff interactions. Safety plan has been established with patient, and care team, to adhere to patient goals, identify restrictions based on behavioral status, address nutrition, and determine allowed personal belongings, tools for hygiene and personal care. Determine level of activity including ambulation, level of super vision, visitors, and determine privileges based on behaviors and level of engagement by pt. SAFETY PLAN: 1. Will remain on suicide precautions. In Paper Clothes 2. Will remain in room under direct supervision of one-on-one staff at all times provided by CPSO, CENTRAL SUPPLY AIDE, PARKING LOT LABORER loader helper sorting yard. 3. May have paper cups, plates, finger foods as well as a cardboard spoon with which to eat meals. 4. Follow [facility] Management of the Admitted Behavioral Health Patient policy. 5. Shower permitted with supervision and at RN discretion. 6. No personal belongings. 7. Visitors-none at this time. 8. Activities: soft cart items, coloring book, crayons, music tablet, television and remote, and other activities at RN discretion. 9. Bathroom privileges with escort in the ED, available in room without limitation on M/S. 10. Phone: May use [email or web address] hospital phone to call mother at RN discretion. 11. Due to VOLUNTARY status, if patient wishes to leave [facility], staff will contact [facility] Crisis Screener ([phone]) and On-Call Tours Hostess ([phone]) as soon as possible. In the event of elopement, notify [facility] Police ([phone]). Patient is currently voluntarily at [facility] and seeking inpatient admission when a bed becomes available. [facility] Frontline Table And Desk Finisher will continue seeking placement. Please contact the Chief Underwriter Tours Hostess ([phone]) and [facility] Table And Desk Finisher ([phone]) for any needed changes in the Safety Plan. Safety plan has been provided to interdepartmental care team.
--- NOTE | 2021-11-12 14:26 | PDOC.CMSAFED ---
- If Service Date Differs Date of service: 11/12/21 Time of Service: 14:27 Care Management Safety Plan Status: Voluntary - Reason for Wait Reason for Wait: Inpatient Admission CHIEF COMPLAINT: Ramona is a 36 year old female from [place] who is currently in [place] visiting her mom. She presents in the ED due to persistent suicidal ideation with intent and plan to hang herself. Per doctor's note, Ramona has a history of obsessive-compulsive disorder, borderline personality disorder, and anxiety disorder. She reportedly was psychiatrically hospitalized at [facility] in [place] and discharged a week ago. She sees a psychiatrist in [place] and is prescribed Zyprexa 2.5 mg twice daily and Memantine 5 mg but per ED provider who spoke with patient's psychiatrist, Ramona has not been compliant with taking her medications. Ramona was re-assessed by Geena Figueroa, [facility] Fats And Oils Loader, and she was found to still meet criteria for a voluntary hospitalization. No neds are available until Sunday at the [facility]. [facility] [place] declined her.[place] has requested additional clinical notes and the [address], [facility] and [place] have no available beds. CM will continue to follow. VOLUNTARY FOR INPATIENT PSYCHIATRIC STABILIZATION. Patient is appropriate in all interactions since arriving at [facility]; Pt has demonstrated appropriate coping and communication skills, has articulated his or her needs and concerns and is fully engaged during staff interactions. Safety plan has been established with patient, and care team, to adhere to patient goals, identify restrictions based on behavioral status, address nutrition, and determine allowed personal belongings, tools for hygiene and personal care. Determine level of activity including ambulation, level of supervision, visitors, and determine privileges based on behaviors and level of engagement by pt. SAFETY PLAN: 1. Will remain on suicide precautions. In Paper Clothes 2. Will remain in room under direct supervision of one-on-one staff at all times provided by CPSO, SERGING MACHINE OPERATOR AUTOMATIC, TOOL KEEPER director of grants. 3. May have paper cups, plates, finger foods as well as a cardboard spoon with which to eat meals. 4. Follow [facility] Management of the Admitted Behavioral Health Patient policy. 5. Shower permitted with supervision and at RN discretion. 6. No personal belongings. 7. Visitors-none at this time. 8. Activities: soft cart items, coloring book, crayons, music tablet, television and remote, and other activities at RN discretion. 9. Bathroom privileges with escort in the ED, available in room without limitation on M/S. 10. Phone: May use [employer] hospital phone to call mother at RN discretion. 11. Due to VOLUNTARY status, if patient wishes to leave [facility], staff will contact [facility] Crisis Screener ([phone]) and On-Call Adjunct Professor Of Law ([phone]) as soon as possible. In the event of elopement, notify [facility] Police ([phone]). Patient is currently voluntarily at [facility] and seeking inpatient admission when a bed becomes available. [facility] Frontline Fats And Oils Loader will continue seeking placement. Please contact the Paper Bag Press Operator Adjunct Professor Of Law ([phone]) and [facility] Fats And Oils Loader ([phone]) for any needed changes in the Safety Plan. Safety plan has been provided to interdepartmental care team.
[2021-11-12 20:00] VITALS: BP 111/54; PULSE 84; RESP 20; TEMP 36.6; O2SAT 99
--- NOTE | 2021-11-12 20:53 | NUR.NOTE ---
Nursing Note: I interviewed pt to reassess ongoing anxiety and crying reported to me by Samantha SANDHU. Pt explains to me that at this time, she is ruminating every time she wakes up and she cannot stop her thoughts. She continues to have intermittent SI. Denies HI. Pt reports that she is currently ruminating about the loss of all the things that she loved about her life. She tells me that her OCD was out of control and she lost the love of her life and then her personal life was brought into her job via a coworker and she had a melt down at work. She then left her position and feels like she has nothing left. She denies any eating disorders of binging or restriction. She said that aside from replaying the situation of her job loss and break up, she also counts repetitively. She tells me that she wants treatment and she wants to get better, but she can't imagine what that looks like right now. We discussed choosing one thing that is positive to think about and she said that she wanted to feel happy again while having her morning coffee. I encouraged her to continue to drink fluids and eat snacks. We discussed having her shower tonight.
--- NOTE | 2021-11-13 06:45 | W.PM.HP.N ---
Date of service: 11/13/21 Time of Service: 06:45 Assessment and Plan Assessment and plan (1) Suicidal ideation: Status: Acute Assessment and plan: Continue zyprexa 2.5 mg PO BID initiate din the ED with prn ativan. Await psychiatric bed. Voluntary admission. (2) Anxiety and depression: Assessment and plan: As above (3) Borderline personality disorder: Assessment and plan: As above (4) OCD (obsessive compulsive disorder): Assessment and plan: As above (5) DVT prophylaxis: Status: Acute Assessment and plan: DVT ppx is not required in a 36 year old ambulatory patient (6) Discharge planning issues: Status: Acute Assessment and plan: Full code. Ambulatory admission. History of Present Illness History of Present Illness Chief Complaint: Suicidal ideation, I can't stop crying Narrative: Ms Smith is a 36 year old female with PMHx of borderline personality d/o, OCD, anxiety d/o who presented to [facility] ED on 11/11/20 reporting thoughts of self-harm without actual attempt as well as anxiety. She was contemplating hanging herself. She has not had any prior suicide attempts. The events that triggered these feelings are loss of her job and a break-up with her boyfriend. She says she just can't stop thinking about it because of her OCD and can't stop crying. The patient has had numerous psychiatric admissions in the past. While the patient received IM ativan in the ED, it was given for anxiety rather than for behaviors. There have not been any code angel luis. She is awaiting a voluntary psychiatric admission. Review of Systems All systems reviewed & are unremarkable except as noted in HPI and below PFSH All Active Problems (Updated 11/13/21 @ 06:50 by Natalie Gonzalez MD) Discharge planning issues (Acute) DVT prophylaxis (Acute) Suicidal ideation (Acute) Medical History Anxiety and depression Borderline personality disorder OCD (obsessive compulsive disorder) Panic anxiety syndrome Social History Smoking/Tobacco Use Status: Never Smoking risk assessment performed?: Yes Alcohol Intake: never Substance use type: does not use Do you feel safe at home: Yes Do you feel safe in your relationship?: Yes Meds Allergies and Home Medications Allergies Allergy/AdvReac Type Severity Reaction Status Date / Time No Known Drug Allergies Allergy Unverified 06/30/21 09:10 cats Allergy Uncoded 11/11/21 11:55 Home Medications Medication Instructions Recorded Confirmed Type escitalopram oxalate 20 mg tablet 30 mg PO DAILY 11/11/21 11/11/21 History (Lexapro) lorazepam 1 mg tablet (Ativan) 1 mg PO BID 11/11/21 11/11/21 History memantine 5 mg tablet (Namenda) 5 mg PO QAM 11/11/21 11/11/21 History Exam Narrative Exam Narrative: General: Pleasant tearful female who is cooperative, A&Ox3 Neurological: A&Ox3, no focal deficits Psychiatric: Tearful, anxious Skin: Visible skin intact HEENT: Atraumatic, normocephalic, EOMI, MMM, no submandibular lymphadenopathy, goiter or JVD Cardiovascular: RRR, no m/r/g Lungs: CTAB Gastrointestinal: nontender, nondistended Genitourinary: deferred Extremities: no edema BLE's Results Labs Result diagrams: 11/11/21 13:00 11/11/21 13:00 Last Vital Signs Temp 36.6 C 11/12/21 20:00 Pulse 84 11/12/21 20:00 Resp 20 11/12/21 20:00 BP 111/54 L 11/12/21 20:00 Pulse Ox 99 11/12/21 20:00
[2021-11-13] MEDS: OLANZapine 2.5 MG TAB PO (07:03)
[2021-11-13 07:43] VITALS: BP 113/78; PULSE 64; RESP 22; TEMP 36.6; O2SAT 100
[2021-11-13] MEDS: LORazepam 1 MG TAB PO (08:03)
[2021-11-13] MEDS: Memantine 5 MG TAB PO (08:04)
--- NOTE | 2021-11-13 10:21 | PDOC.CMSAFE ---
- If Service Date Differs Date of service: 11/13/21 Time of Service: 10:21 Care Management Safety Plan Status: Voluntary - Reason for Wait Reason for Wait: Inpatient Admission VOLUNTARY FOR INPATIENT PSYCHIATRIC STABILIZATION. Patient is appropriate in all interactions since arriving at [facility]; Pt has demonstrated appropriate coping and communication skills, has articulated his or her needs and concerns and is fully engaged during staff interactions. Safety plan has been established with patient, and care team, to adhere to patient goals, identify restrictions based on behavioral status, address nutrition, and determine allowed personal belongings, tools for hygiene and personal care. Determine level of activity including ambulation, level of supervision, visitors, and determine privileges based on behaviors and level of engagement by pt. SAFETY PLAN: 1. Will remain on suicide precautions. In Paper Clothes 2. Will remain in room under direct supervision of one-on-one staff at all times provided by [employer]; [employer], LAUNDRY ATTENDANT tieing machine operator. 3. May have paper cups, plates, finger foods as well as a cardboard spoon with which to eat meals. 4. Follow [facility] Management of the Admitted Behavioral Health Patient policy. 5. Comfort bath system only, shower permitted with escort at nursing discretion. 6. No personal belongings-soft items permitted at nursing discretion. 7. Visitors-mother may visit at nursing's discretion 8. Activities: soft cart items approved per nursing discretion. 9. Bathroom privileges without limitation on M/S. 10. Phone: contact limited to family at this time, via cordless phone at nursing discretion. 11. Due to VOLUNTARY status, if patient wishes to leave [facility], staff will contact [facility] Crisis Screener ([phone]) and On-Call Training And Quality Manager ([phone]) as soon as possible. In the event of elopement, notify [facility] Police ([phone]). Patient is currently voluntarily at [facility] and seeking inpatient admission when a bed becomes available. [facility] Frontline [employer] will continue seeking placement. Please contact the Guide Changer Training And Quality Manager ([phone]) and [facility] Cut Off Sawyer Log ([phone]) for any needed changes in the Safety Plan. Safety plan has been provided to interdepartmental care team.
--- NOTE | 2021-11-13 10:25 | PDOC.CMPRO ---
- If Service Date Differs Date of service: 11/13/21 Time of Service: 10:25 Care Management Progress Note S/O:Marylu was sitting up on her stretcher when CM met with her. She was teary and explained that she just can't let go of the past. She stated that she is sad, anxious and depressed because she lost her boyfriend and her job. She informed that until about 10 months ago she was doing well. She does have OCD and a diagnosis of borderline personality, but had not been hospitalized. In the last 10 month she has had 10 psychiatric hospitalizations. Most recently she was discharged from a hospital in [place], where she lives, just 1 week prior to presenting to the ED. She is in [place] visiting with her mother. Marylu was seen by Wandy Silva, [facility] Crisis screener, today via Zoom and continues to endorse SI with a plan. A: Ramona is a 36 year old woman admitted on 11/13/21 with depression and suicidal ideation P:Ramona is seeking voluntary admission to a psychiatric hospital for stabilization.[facility] and [facility] are both reviewing her case. CM faxed updated clinicals to both this morning. Jessica has stated they will accept her if prior authorization from her insurance company can be obtained. Wandy from [facility] is currently working on that process.
--- NOTE | 2021-11-13 11:15 | PDOC.MHCN ---
Date of service: 11/13/21 Time of Service: 10:35 Mental Health Crisis Note Presenting Issue How did you arrive at the ED and why did you come: Client arrived via Ambulance on 11/11 after endorsing SI with intent and plan Precipitating Factors Client stated she is a 7 out of 10 to act upon SI if released. Disposition BEHAVIOR: Tearful, Anxious, sad EYE CONTACT: Poor Eye Contact MOOD: Sad, Depressed AFFECT: Full, Congruent with mood APPETITE: Client discloses she does not have any problem with her appetite SLEEP(trouble falling/staying asleep: Client reports she slept ok Plan Client will remain at [facility] and await Voluntary placement at a hospital TBD Signature Clinician's Name/Title: Wandy Silva Enhanced Crisis Plasma Processing Centrifuge Operator [facility]
--- NOTE | 2021-11-13 11:23 | PDOC.MHCN_ITS ---
Date of service: 11/13/21 Time of Service: 10:35 Mental Health Crisis Note Presenting Issue How did you arrive at the ED and why did you come: Client arrived via ambulance on 11/11/2021 due to SI intent and plan Precipitating Factors Client is endorsing SI with intent and plan if she were to be released into community Disposition BEHAVIOR: Sad, Depressed, Anxious, tearful EYE CONTACT: Poor MOOD: Sad, Tearful AFFECT: Congruent with mood, expressive APPETITE: Client stated they have a good appetite SLEEP(trouble falling/staying asleep: Client states they are sleeping OK Plan Client will remain at [facility] and await voluntary placement at a hospital [facility] is requesting an updated Hospital form, provider notes, and medication update [facility] has no beds available BR- Declined due to acuity [facility] are not [facility] patients until Sunday. Signature Clinician's Name/Title: Wandy Silva Enhanced Crisis Music Ministries Director [facility]
--- NOTE | 2021-11-13 11:33 | PDOC.MHCN_ITS ---
Date of service: 11/13/21 Time of Service: 10:35 Mental Health Crisis Note Presenting Issue How did you arrive at the ED and why did you come: Client arrived via ambulance on 11/11/2021 Precipitating Factors Client endorsing SI with intent and plan Disposition BEHAVIOR: Emotionally dysregulated, sad, depressed and anxious EYE CONTACT: Poor MOOD: Sad, Depressed AFFECT: Full, reactive, Congruent with mood APPETITE: Client reports she's eating good SLEEP(trouble falling/staying asleep: Client reports to sleeping OK Plan Client will remain at [facility] and await voluntary placement at hospital TBD [facility] requested updated Provider notes and medications sheet Carrie requested updated provider notes and medications sheet 2 [facility] are not accepting patients until Sunday Signature Clinician's Name/Title: Wandy iSlva Enhanced Crisis Foreign Diplomat [facility]
[2021-11-13 16:12] VITALS: BP 130/88; PULSE 81; RESP 21; TEMP 37.1; O2SAT 96
--- NOTE | 2021-11-13 16:18 | DSE_ITS ---
Date of service: 11/13/21 Time of Service: 16:18 DS: Diagnosis Discharge Diagnosis (1) Suicidal ideation: Status: Acute (2) Anxiety and depression: (3) Borderline personality disorder: (4) OCD (obsessive compulsive disorder): Discharge Plan Disposition Patient Disposition: [facility] Condition: Stable Discharge Details Reason For Visit: Wilmer Admit Date/Time: 11/13/21 06:44 Admit Provider: Natalie Gonzalez Attending Provider: Natalie Gonzalez Primary Care Provider: Odessa Velazquez [facility] Course Hospital Course: This is a 36 year old female with history of borderline personality, OCD, anxiety who presented to [facility] ED on 11/11/20 reporting thoughts of self-harm without actual attempt as well as anxiety. She was contemplating hanging herself. She has not had any prior suicide attempts. The events that triggered these feelings are loss of her job and a break-up with her boyfriend. She says she just can't stop thinking about it because of her OCD and can't stop crying. The patient has had numerous psychiatric admissions in the past. While the patient received IM ativan in the ED, it was given for anxiety rather than for behaviors. There have not been any code angel luis.? She is awaiting a voluntary psychiatric admission. She remains medically clear and now has been accepted at [facility] [address] [phone]. transported by [facility] department discharge discussed with DR Sequeira Home Meds and New Rx's Prescriptions: Continued lorazepam [Ativan] 1 mg Tablet 1 mg PO BID 0RF escitalopram oxalate [Lexapro] 20 mg Tablet 30 mg PO DAILY 0RF memantine [Namenda] 5 mg Tablet 5 mg PO QAM 0RF Discharge Instructions Instructions: Anxiety (DC), Suicide Prevention (DC) Referrals: Practice Provider [Provider Group] (on discharge from inpatient [facility]) Activity:: Activity as Tolerated Equipment/Supplies:: No Equipment Needed Diet:: As Tolerated Discharge Orders Discharge Orders: Discharge Order (Routine); Ordered 11/13/21 Ordered By: Odessa Velazquez Discharge Data Discharge Date/Time-TO BE ENTERED AT DEPARTURE: 11/13/21 17:35 DS: Summary Time Spent with Patient providing and/or coordinating discharge services: Less than 30 minutes Status at Discharge Functional status at discharge: independent ambulation Overall status at discharge: patient is not back to baseline Mental Status: mental status grossly normal Speech and Movement: speech and movement normal Mood: anxious mood Affect: sad Exam Const General: cooperative and anxious Resp Effort & Inspection: normal respiratory effort Cardio Rate: regular rate Rhythm: regular rhythm GI Inspection: normal to inspection Skin General skin exam: no rashes or lesions noted Neuro General: patient alert and patient oriented x3 Cranial Nerves: CN's II-XI intact bilaterally Extrem General: normal to inspection Psych Appearance: well kempt Mental Status: mental status grossly normal Speech and Movement: speech and movement normal Mood: anxious mood Affect: sad Attitude: cooperative Thought Process: perseverating and tangential Thought Content: compulsions Insight: limited Judgment: limited DS: Data Vitals/I&O Vitals and I&O: Vital Signs Temperature 37.1 C 11/13/21 16:12 Temperature Source Tympanic 11/13/21 16:12 Pulse 81 11/13/21 16:12 Respiratory Rate 21 11/13/21 16:12 Respiratory Effort 11/13/21 07:43 Respiratory Depth Normal 11/13/21 07:43 Respiratory Pattern Normal 11/13/21 07:43 Blood Pressure 130/88 11/13/21 16:12 Blood Pressure Position Sitting 11/11/21 11:50 Pulse Oximetry 96 11/13/21 16:12 Oxygen Delivery Method Room Air 11/13/21 16:12 Oxygen Flow Rate 0 11/13/21 16:12 Pain Level 0 11/13/21 07:43 Comment 11/11/21 20:46 Intake & Output 11/12/21 11/13/21 11/13/21 23:59 11:59 23:59 Intake Total 210 / 210 Balance 210 / 210 Weight 63.503 kg Intake: Oral 210 / 210 Other: Comment pT voids independently without assistance Voiding Methods Toilet PFSH All Active Problems (Updated 11/13/21 @ 06:50 by Natalie Gonzalez MD) Discharge planning issues (Acute) DVT prophylaxis (Acute) Suicidal ideation (Acute) Medical History Anxiety and depression Borderline personality disorder OCD (obsessive compulsive disorder) Panic anxiety syndrome Social History Smoking/Tobacco Use Status: Never Smoking risk assessment performed?: Yes Alcohol Intake: never Substance use type: does not use Do you feel safe at home: Yes Do you feel safe in your relationship?: Yes
== END 2021-11-13 17:35 | disposition short-term general hospital (02) ==
LOC: ER 11-13 07:14 → MS 11-13 07:32
PROVIDERS: Physician Assistant; Admitting Provider Internal Medicine; Emergency Provider Emergency Medicine; PCP Nurse Practitioner Acute Care; Visit Provider Internal Medicine
DX: R45.851 Suicidal ideations (principal); F60.3 Borderline personality disorder; F41.8 Other specified anxiety disorders; F42.9 Obsessive-compulsive disorder, unspecified; Z20.822 Contact with and (suspected) exposure to COVID-19; Z79.899 Other long term (current) drug therapy
CPT/HCPCS: 80053; 80307; 87635; 80320; 80329; 84443; 85025; 99219; 99235; G0378; J2060

== ENCOUNTER 2023-01-14 12:39 | Emergency (ER) | payer MEDICAID, SELFPAY ==
[2023-01-14 12:42] VITALS: BP 109/92; PULSE 89; RESP 20; O2SAT 99
--- NOTE | 2023-01-14 12:42 | W.ED.GENAD ---
Discharge Plan Disposition Patient Disposition: Home Discharge Details Clinical Impression: Panic attacks Primary Care Provider: Juana Saavedra ED Provider: Anthony Vaughn Home Meds and New Rx's Prescriptions: New lorazepam 0.5 mg tablet 0.5 mg PO BID PRNQty: 7 0RF Continued trazodone 150 mg tablet 150 mg PO QHS quetiapine 50 mg tablet 25 mg PO BID PRN escitalopram oxalate [Lexapro] 20 mg Tablet 20 mg PO DAILY memantine [Namenda] 5 mg Tablet 5 mg PO QAM Patient Comments: Pt no longer taking 01/14/23 CT Discontinued clonazepam 1 mg Tablet 1 mg PO BID PRN lorazepam [Ativan] 1 mg Tablet 1 mg PO BID Patient Comments: Pt no longer taking 01/14/23 CT Discharge Instructions Instructions: Panic Attack (ED) Additional Instructions: Please read all of the information that accompanies these instructions. You were seen in the emergency department for your panic attack. We discussed possibility of inpatient hospitalization which you declined. A prescription for short course of lorazepam has been sent to your pharmacy. Please take this as directed. Please do not take clonazepam with your lorazepam. The care management team will reach out to your primary care provider to hopefully help arrange an appointment later this week. Please return to the emergency department if do not feel safe at home or have any other concerns. Medical Decision Making This is an overall well-appearing normothermic and not tachycardic 38-year-old female with OCD and history of panic attacks with worsening anxiety at home. She is not having any chest pain at the moment to suggest ACS. She denies suicidal and homicidal ideation so no indication for involuntary hospitalization. I offered the patient voluntary hospitalization with consultation from an [facility] human services. Patient declined and wanted to go home. She has a primary care provider locally and has a follow-up appointment in mid January. We will work to provide more expedited outpatient follow-up. Patient has already seen a telehealth psychiatrist locally. She is not altered to suggest encephalitis. No fevers to suggest meningitis. She does not want to harm herself. She has been hospitalized 14 times reportedly in the past 2 years and given that she declined hospitalization at the moment no indication for involuntary hold. I have advised ED return if the patient was unable to manage her symptoms at home despite oral lorazepam which I prescribed. No dysuria no frequency to suggest URI. No shortness of breath no hypoxia nor tachycardia symptoms PE. Health equal opportunity representative Marcia will help to arrange outpatient follow-up for the patient in the next week with the assistance of care management. I reviewed the patient's PDMP record and she had multiple prescriptions for clonazepam most recently failed almost 2 months ago. As result will write the patient for 7 tablets of 0.5 mg of lorazepam to take as needed for anxiety. HPI General Date/Time Provider Initiated Documentation: 01/14/23 12:42. HPI Narrative: This is a 38-year-old female with history of OCD, depression, and panic attacks arriving to the emergency department in the setting of worsening panic attacks with her mother via private vehicle. Patient reportedly had to leave a job and an apartment in [place] as result of her debilitating obsessive-compulsive disorder. She has a primary care provider arranged locally and is staying with her mother who lives in [place]. She has reportedly seen a local psychiatrist via a telehealth appointment. Patient has been hospitalized reportedly 14 times in the past 2 years. She has been hospitalized at [facility] in [place]. She was previously on lorazepam and felt that this may have helped her anxiety. She denies suicidal homicidal ideation. She is not currently having any chest pain nor shortness of breath. She feels safe at home. She denies any recent falls. She has not been vomiting nor does she have any abdominal pain dysuria nor frequency. Related Data Home Medications Medication Instructions Recorded Confirmed escitalopram oxalate 20 mg tablet 20 mg PO DAILY 11/11/21 01/14/23 (Lexapro) memantine 5 mg tablet (Namenda) 5 mg PO QAM 11/11/21 11/11/21 lorazepam 0.5 mg tablet 0.5 mg PO BID PRN #7 tabs 01/14/23 quetiapine 50 mg tablet 25 mg PO BID PRN 01/14/23 01/14/23 trazodone 150 mg tablet 150 mg PO QHS 01/14/23 01/14/23 Previous Rx's Medication Instructions Recorded lorazepam 0.5 mg tablet 0.5 mg PO BID PRN #7 tabs 01/14/23 Allergies Allergy/AdvReac Type Severity Reaction Status Date / Time No Known Drug Allergies Allergy Unverified 01/14/23 12:47 cats Allergy Uncoded 01/14/23 12:47 General JASKARAN: 2 PFSH All Active Problems (Updated 01/14/23 @ 13:12 by Anthony Vaughn MD) Panic attacks (Acute) Discharge planning issues (Acute) DVT prophylaxis (Acute) Suicidal ideation (Acute) Medical History Anxiety and depression Borderline personality disorder OCD (obsessive compulsive disorder) Panic anxiety syndrome Family History (Updated 01/02/23 @ 15:27 by Massiel Hartmann) Mother No problems noted. Father , 52 Cancer Prostate Brother No problems noted. Social History (Updated 01/02/23 @ 15:26 by Massiel Hartmann) Smoking/Tobacco Use Status: Never Second Hand Exposure: No Smoking risk assessment performed?: Yes Alcohol Intake: former Drug use: Never Substance use type: does not use Caregiver/Support person: No Household members: other Details: Mother Housing: house Do you need help understanding health information?: Never Pets and animals: No Sexually active: No Do you think of yourself as: straight/heterosexual Current gender identity: female What is your relationship status?: never How often do you talk on the phone with friends or family?: decline to answer How often do you get together with friends or relatives?: decline to answer How often do you attend voodoo or mandaeism services?: decline to answer Do you belong to any clubs or organized social groups?: no Panel score (0-1 are the most socially isolated patients): 0 What type of physical activity do you participate in: none Frequency: does not exercise Keerthi/Oriental Orthodox: No preference Special keerthi needs: No Seatbelt use: always Drive intox or ride w/intox feeder driver: No Do you feel safe at home: Yes Do you feel safe in your relationship?: Yes Exam Narrative Exam Narrative: General: Well-appearing in no acute distress speaking in complete sentences. Intermittently sobbing and tearful. Head: Normocephalic, atraumatic. Eye: Pupils equal, round reactive to light. Extraocular eye movements intact. No conjunctival injection. No scleral icterus. Ear, nose, mouth, throat: Grossly normal inspection. Normal voice, handling secretions normally. Moist mucous membranes. Neck: Trachea midline. Cardiovascular: Well-perfused distal extremities. Respiratory: Nonlabored respiration. Gastrointestinal: Nondistended abdomen. Musculoskeletal: No edema. Moving all 4 extremities spontaneously. Skin: Normal for age and race, grossly normal temperature and turgor. No acute rash. Neurologic: Alert and appropriate, no apparent acute deficits. Psychiatric: Mood and manner are appropriate. Grooming and personal hygiene are appropriate.
[2023-01-14] MEDS: LORazepam 0.5 MG TAB PO (13:08)
[2023-01-14 13:12] VITALS: TEMP 37.2
--- NOTE | 2023-01-14 13:12 | NUR.NOTE ---
Nursing Note:Referral faxed to PCP for severe anxiety to be seen this week.
== END 2023-01-14 13:16 | disposition home or self-care (01) ==
LOC: ER 13:20
PROVIDERS: Emergency Provider Emergency Medicine; PCP Nurse Practitioner Family
DX: F41.0 Panic disorder [episodic paroxysmal anxiety] (principal); F42.9 Obsessive-compulsive disorder, unspecified
CPT/HCPCS: 99283; 99284

== ENCOUNTER 2023-01-21 12:20 | Emergency (ER) | payer MEDICAID, SELFPAY ==
[2023-01-21 12:21] VITALS: BP 109/66; PULSE 63; RESP 16; TEMP 36.9; O2SAT 99
--- NOTE | 2023-01-21 12:23 | NUR.NOTE ---
pt states she has been OCD for 2 years and has had chronic SI. States she has SI today with no specific plan. spoke with her therapist last week, meets with them once a month.
--- NOTE | 2023-01-21 12:27 | ED.GENADUL_ITS ---
Discharge Plan Disposition Condition: Stable Discharge Details Chief Complaint: PsychEval Clinical Impression: Depression Primary Care Provider: Juana Saavedra ED Provider: Matt Hayward Home Meds and New Rx's Prescriptions: No Action trazodone 150 mg tablet 150 mg PO QHS quetiapine 50 mg tablet 25 mg PO BID PRN lorazepam 0.5 mg tablet 0.5 mg PO BID PRNQty: 7 0RF escitalopram oxalate [Lexapro] 20 mg Tablet 20 mg PO DAILY memantine [Namenda] 5 mg Tablet 5 mg PO QAM Patient Comments: Pt no longer taking 01/14/23 CT Medical Decision Making 38 yo female with hx of anxiety, depression, comes in with complaint of thoughts of self harm for years that she feels is worsening. Denies any specific plan and hasn't attempted to harm herself. She is tearful in the room intermittently. She is caox4, normal gait, no focal motor or sensation deficits, normal speech. She ahs been seen in the past for similar complaints, do not feel blood work indicated given lack of concerning findings on history or physical exam. Medically cleared to speak with mental health. pt stable, was given a dose of oral ativan for anxiety with improvement, assessed by [facility] and will be seeking voluntary placement for depression/si. Differential Diagnosis Differential Diagnosis: depression,si Lab Data Lab results reviewed: Yes I reviewed the patient's lab results. HPI General Mode of arrival: EMS . Date/Time Provider Initiated Documentation: 01/21/23 12:24 . Limitations to Documentation: no limitations . Information obtained by: patient . History of Present Illness 38 year old F presents to the emergency department with the chief complaint of depression , Patient started experiencing this year(s) (2) and it has been constant. No relieving factors improve symptom(s), No exacerbating factors reported . Patient notes no other symptoms.; denies diaphoresis, fever/chills and shortness of breath. Related Data Home Medications Medication Instructions Recorded Confirmed escitalopram oxalate 20 mg tablet 20 mg PO DAILY 11/11/21 01/21/23 (Lexapro) memantine 5 mg tablet (Namenda) 5 mg PO QAM 11/11/21 01/21/23 lorazepam 0.5 mg tablet 0.5 mg PO BID PRN #7 tabs 01/14/23 01/21/23 quetiapine 50 mg tablet 25 mg PO BID PRN 01/14/23 01/21/23 trazodone 150 mg tablet 150 mg PO QHS 01/14/23 01/21/23 Previous Rx's Medication Instructions Recorded lorazepam 0.5 mg tablet 0.5 mg PO BID PRN #7 tabs 01/14/23 Allergies Allergy/AdvReac Type Severity Reaction Status Date / Time No Known Drug Allergies Allergy Unverified 01/21/23 12:23 cats Allergy Uncoded 01/21/23 12:23 General Stated Complaint: PsychEval JASKARAN: 2 Review of Systems All systems reviewed & are unremarkable except as noted in HPI and below Constitutional Constitutional: Denies chills, Denies fever(s) and Denies weakness Cardiovascular Cardiovascular: Denies chest pain and Denies dyspnea Respiratory Respiratory: Denies cough and Denies dyspnea Gastrointestinal Gastrointestinal: Denies abdominal pain, Denies nausea and Denies vomiting Musculoskeletal Musculoskeletal: Denies joint swelling Integumentary/Breasts Skin/Breast: Denies rash Neurologic Neurologic: Denies weakness PFSH All Active Problems (Updated 01/21/23 @ 14:40 by Matt Hayward MD) Panic attacks (Acute) Depression (Chronic) Discharge planning issues (Acute) DVT prophylaxis (Acute) Suicidal ideation (Acute) Medical History Anxiety and depression Borderline personality disorder OCD (obsessive compulsive disorder) Panic anxiety syndrome Family History (Updated 01/02/23 @ 15:27 by Massiel Hartmann) Mother No problems noted. Father , 52 Cancer Prostate Brother No problems noted. Social History (Updated 01/02/23 @ 15:26 by Massiel Hartmann) Smoking/Tobacco Use Status: Never Second Hand Exposure: No Smoking risk assessment performed?: Yes Alcohol Intake: former Drug use: Never Substance use type: does not use Caregiver/Support person: No Household members: other Details: Mother Housing: house Do you need help understanding health information?: Never Pets and animals: No Sexually active: No Do you think of yourself as: straight/heterosexual Current gender identity: female What is your relationship status?: never How often do you talk on the phone with friends or family?: decline to answer How often do you get together with friends or relatives?: decline to answer How often do you attend scientology or hinduism services?: decline to answer Do you belong to any clubs or organized social groups?: no Panel score (0-1 are the most socially isolated patients): 0 What type of physical activity do you participate in: none Frequency: does not exercise Keerthi/Mormonism: No preference Special keerthi needs: No Seatbelt use: always Drive intox or ride w/intox chair car driver: No Do you feel safe at home: Yes Do you feel safe in your relationship?: Yes Exam Const General: no acute distress Orientation: alert HENMT Head: normal to inspection Ears: external ears normal General nose exam: external nose normal Mouth: moist mucous membranes Eyes General: appearance normal, both eyes and all related structures Neck Neck: normal visual inspection Resp Effort & Inspection: normal respiratory effort and able to speak in complete sentences Cardio Rate: regular rate Skin General skin exam: no rashes or lesions noted Neuro General: patient alert and patient oriented x3 Extrem General: normal to inspection Psych Speech and Movement: not agitated Attitude: cooperative Course Vital Signs Vital signs: Vital Signs Temperature 36.9 C 01/21/23 12:21 Pulse 63 01/21/23 12:21 Respiratory Rate 16 01/21/23 12:21 Blood Pressure 109/66 01/21/23 12:21 Pulse Oximetry 99 01/21/23 12:21 Temperature 36.9 C 01/21/23 12:21 Temperature Source Oral 01/21/23 12:21 Pulse 63 01/21/23 12:21 Respiratory Rate 16 01/21/23 12:21 Respiratory Effort Normal 01/21/23 12:23 Blood Pressure 109/66 01/21/23 12:21 Blood Pressure Position Sitting 01/21/23 12:21 Pulse Oximetry 99 01/21/23 12:21 Oxygen Delivery Method Room Air 01/21/23 12:21 Oxygen Flow Rate 0 01/21/23 12:21 Pain Level 0 01/21/23 12:21
[2023-01-21 12:45] LABS: Bilirubin Negative (Negative); Blood Trace-intact (Negative); Clarity Clear (Clear); Glucose Negative (Negative); Ketones 15 mg/dL (Negative); Leukocyte Esterase Trace (Negative); Nitrite Negative (Negative); Specific Gravity 1.015 (1.005-1.025); Urobilinogen 0.2 mg/dL (Up to 0.2)
--- NOTE | 2023-01-21 12:46 | NUR.NOTE ---
pt changed into safety scrubs, belongings removed and secured. [facility] has been paged, awaiting eval at this time. CPSO in place.
[2023-01-21 12:55] LABS: Bacteria Rare HPF (Negative); C & S Indicated? No; Casts Negative LPF (Negative); Crystals Negative HPF (Negative); Epithelial Cells Few HPF (Negative); Mucus Negative (Negative); RBC 0-2 HPF (0-2); WBC 0-2 HPF (0-5)
[2023-01-21 12:58] LABS: *AMPHETAMINES SCREEN URINE Negative (Negative); *BARBITURATES SCREEN URINE Negative (Negative); *BENZODIAZEPINES SCREEN URINE Negative (Negative); Cannabinoids THC Negative (Negative); Cocaine Screen,Urine Negative (Negative); METHADONE URINE SCREEN Negative (Negative); OPIATES URINE SCREEN Negative (Negative)
[2023-01-21 13:02] LABS: Tricyclic Antidepressants Negative (Negative)
--- NOTE | 2023-01-21 13:12 | NUR.NOTE ---
[facility] on ipad at pts bedside
[2023-01-21] MEDS: LORazepam 1 MG TAB PO (13:40)
--- NOTE | 2023-01-21 13:40 | NUR.NOTE ---
pt crying in room, stating im having a panic attack. ativan administered. pts mother en route
--- NOTE | 2023-01-21 14:03 | NUR.NOTE ---
pts mother at bedside
[2023-01-21] MEDS: LORazepam 1 MG TAB 2 MG PO (15:02)
--- NOTE | 2023-01-21 16:17 | NUR.NOTE ---
Rec'd call from [facility], they are not able to take the patient. Nursing Note:
[2023-01-21 16:38] LABS: Abs Immature Grans 0.01 10^3/uL (0.0-0.06); Absolute Basophil Count 0.07 10^3/uL (0.0-0.2); Absolute Eosinophil Count 0.06 10^3/uL (0.0-0.7); Absolute Lymphocyte Count 1.67 10^3/uL (1.2-3.4); Absolute Monocyte Count 0.39 10^3/uL (0.1-0.8); Basophils % 1.4; Eosinophils % 1.2; HGB 11.2 g/dL (11.2-15.7); Immature Grans % 0.2; Lymphocytes % 34.1; MCH 26.5 pg (27.0-33.0); MCV 83 fL (80-95); Neutrophils % 55.1; Platelet Count 266 10^3/uL (130-400); RBC 4.22 10^6/uL (3.93-5.22); RDW 12.9 % (11.7-14.6)
[2023-01-21 17:02] LABS: ALT 28 U/L (14-59); AST 18 U/L (15-37); Albumin 4.5 g/dL (3.4-5.0); Alkaline Phosphatase 48 U/L (46-116); BUN 8 mg/dL (7-18); Bilirubin, Total 0.6 mg/dL (0.2-1.0); CREATININE 0.8 mg/dL (0.55-1.02); Calcium 9.2 mg/dL (8.5-10.1); Chloride 101 mmol/L (98-107); Estimated GFR 97.87 (mL/min/1.73m2); Glucose 90 mg/dL (74-106); Potassium 3.6 mmol/L (3.5-5.1); Sodium 139 mmol/L (136-145); TSH (W/Ref FT4) 1.74 uIU/mL (0.36-3.74); Total Protein 7.8 g/dL (6.4-8.2)
--- NOTE | 2023-01-21 17:16 | ED.PROG_ITS ---
Date of service: 01/21/23 Time of Service: 17:17 Medical Decision Making 17: 17 patient intermittently tearful had received as needed Ativan. Has been medically cleared, at the request of Ann nino Labs were drawn which are normal. Patient has been accepted by Dr. Smith for inpatient treatment Sign Out Sign Out Data: Sign Out Comment: depression and thoughts of self harm, has history of similar. Voluntary. Last updated by Matt Hayward MD at 01/21/23 14:49 Discharge Plan Disposition Patient Disposition: Psychiatric Hospital/Unit Specific Psychiatric Facility: [facility] Condition: Stable Discharge Details Chief Complaint: PsychEval Clinical Impression: Depression Primary Care Provider: Juana Saavedra ED Provider: Bereket Shepard Home Meds and New Rx's Prescriptions: No Action trazodone 150 mg tablet 150 mg PO QHS quetiapine 50 mg tablet 25 mg PO BID PRN lorazepam 0.5 mg tablet 0.5 mg PO BID PRNQty: 7 0RF escitalopram oxalate [Lexapro] 20 mg Tablet 20 mg PO DAILY memantine [Namenda] 5 mg Tablet 5 mg PO QAM Patient Comments: Pt no longer taking 01/14/23 CT
--- NOTE | 2023-01-21 17:28 | NUR.NOTE ---
report called to Elie
[2023-01-21] MEDS: QUEtiapine 25 MG TAB PO (19:32)
--- NOTE | 2023-01-21 19:32 | NUR.NOTE ---
pt awaiting [facility] for transfer to [place]. pt c/o anxiety, medicated with seroquel. pt also asking to use phone, at this time pt has been denied phone privileges due to the fact her last conversation with her mother became loud and aggressive. This has been explained to pt and remains calm towards staff at this time. CPSO remains in place. pt has been anxious and tearful throughout the day here.
[2023-01-21 19:56] VITALS: BP 114/72; PULSE 74; RESP 18; O2SAT 99
== END 2023-01-21 19:45 ==
PROVIDERS: Emergency Medicine; Emergency Provider Emergency Medicine; PCP Nurse Practitioner Family
DX: F32.A Depression, unspecified (principal); R45.851 Suicidal ideations; F41.9 Anxiety disorder, unspecified
CPT/HCPCS: 36415; 80053; 80307; 81025; 99285; 81003; 81015; 84443; 85025

== ENCOUNTER 2023-03-29 10:00 | Emergency (ER) | payer MEDICAID, SELFPAY ==
[2023-03-29 10:06] VITALS: BP 142/81; PULSE 114; RESP 22; TEMP 37.1; O2SAT 98
--- NOTE | 2023-03-29 10:11 | ED.GENADUL_ITS ---
Discharge Plan Disposition Patient Disposition: Home Discharge Details Clinical Impression: MDD (major depressive disorder), Suicidal ideation Primary Care Provider: Juana Saavedra ED Provider: Ramón Vasquez Home Meds and New Rx's Prescriptions: New clonazepam 0.5 mg tablet 0.5 mg PO BID Qty: 20 0RF No Action quetiapine 100 mg tablet 100 mg PO QHS quetiapine 50 mg tablet 50 mg PO BID clonazepam 0.5 mg tablet 0.5 mg PO BID Qty: 20 0RF Patient Comments: does not take anymore trazodone 150 mg tablet 150 mg PO QHS Patient Comments: unable to get refill escitalopram oxalate [Lexapro] 20 mg Tablet 20 mg PO DAILY Discharge Instructions Instructions: Depression (ED), Help Prevent Suicide (ED) Discharge Data Discharge Date/Time-TO BE ENTERED AT DEPARTURE: 03/29/23 12:20 HPI General Date/Time Provider Initiated Documentation: 03/29/23 10:03 . HPI Narrative: 38 year old female with hx of OCD, anxiety/depression, presents to the ED with c/o SI. She does not volunteer any more specifics about her sx's. Denies any physical c/o. Related Data Home Medications Medication Instructions Recorded Confirmed escitalopram oxalate 20 mg tablet 20 mg PO DAILY 11/11/21 03/29/23 (Lexapro) trazodone 150 mg tablet 150 mg PO QHS 01/14/23 03/08/23 quetiapine 100 mg tablet 100 mg PO QHS 03/07/23 03/29/23 quetiapine 50 mg tablet 50 mg PO BID 03/07/23 03/29/23 clonazepam 0.5 mg tablet 0.5 mg PO BID #20 tabs 03/08/23 03/08/23 clonazepam 0.5 mg tablet 0.5 mg PO BID #20 tabs 03/29/23 Previous Rx's Medication Instructions Recorded clonazepam 0.5 mg tablet 0.5 mg PO BID #20 tabs 03/08/23 clonazepam 0.5 mg tablet 0.5 mg PO BID #20 tabs 03/29/23 Allergies Allergy/AdvReac Type Severity Reaction Status Date / Time cats Allergy Uncoded 01/21/23 12:23 General Stated Complaint: PsychEval JASKARAN: 2 PFSH All Active Problems (Updated 03/29/23 @ 11:29 by Ramón Vasquez MD) OCD (obsessive compulsive disorder) (Acute) MDD (major depressive disorder) (Chronic) Discharge planning issues (Acute) DVT prophylaxis (Acute) Suicidal ideation (Acute) Medical History (Updated 03/29/23 @ 11:29 by Ramón Vasquez MD) Anxiety and depression Borderline personality disorder Menorrhagia with irregular cycle Panic anxiety syndrome Sudden-onset sensorineural hearing loss Tinnitus of left ear Family History (Updated 01/02/23 @ 15:27 by Massiel Hartmann) Mother No problems noted. Father , 52 Cancer Prostate Brother No problems noted. Social History (Updated 01/02/23 @ 15:26 by Massiel Hartmann) Smoking/Tobacco Use Status: Never Second Hand Exposure: No Smoking risk assessment performed?: Yes Alcohol Intake: former Drug use: Current Sobriety Substance use type: does not use Caregiver/Support person: No Household members: other Details: Mother Housing: house Do you need help understanding health information?: Never Pets and animals: No Sexually active: No Do you think of yourself as: straight/heterosexual Current gender identity: female What is your relationship status?: never How often do you talk on the phone with friends or family?: decline to answer How often do you get together with friends or relatives?: decline to answer How often do you attend spiritism or congregational services?: decline to answer Do you belong to any clubs or organized social groups?: no Panel score (0-1 are the most socially isolated patients): 0 What type of physical activity do you participate in: none Frequency: does not exercise Keerthi/Advent: No preference Special keerthi needs: No Seatbelt use: always Drive intox or ride w/intox port cdl a driver: No Do you feel safe at home: Yes Do you feel safe in your relationship?: Yes Additional Social history: lives with mother DT mental health Exam Narrative Exam Narrative: Const: no acute distress HEENT: normocephalic, atraumatic; MMM Lungs: CTA, no wheezing or rales Heart: RRR Ext: well perfused Neuro: non-focal Skin: no rashes Course Reevaluation(s) Initial Evaluation: Pt seen and evaluated by services, can be dc'd home, they will give her f/u appt for close f/u and re-eval. Vital Signs Vital signs: Vital Signs Temperature 37.1 C 03/29/23 10:06 Pulse 114 H 03/29/23 10:06 Respiratory Rate 22 03/29/23 10:06 Blood Pressure 142/81 H 03/29/23 10:06 Pulse Oximetry 98 03/29/23 10:06 Temperature 37.1 C 03/29/23 10:06 Pulse 114 H 03/29/23 10:06 Respiratory Rate 22 03/29/23 10:06 Blood Pressure 142/81 H 03/29/23 10:06 Pulse Oximetry 98 03/29/23 10:06 Oxygen Delivery Method Room Air 03/29/23 10:06 Oxygen Flow Rate 0 03/29/23 10:06
[2023-03-29 11:34] VITALS: BP 113/75; PULSE 79; RESP 18; TEMP 37.1; O2SAT 97
--- NOTE | 2023-03-29 11:55 | CMPROGNOTE_ITS ---
Date of service: 03/29/23 Time of Service: 11:55 Care Management Progress Note Progress Note Text Progress Note Text: CM spoke with Allie HP at [facility] who reported Ramona would be safety planning home. Allie reviewed current life stressors and shared that Ramona and her mother are currently struggling in their relationship; resulting in both women requiring individual support. CM consulted by ED to coordinate transport for [facility] appointment on Sunday. CM called [facility], encoding clerk reported that Ramona has an appointment with Adri for an intake on Sunday at 1145. CM notified that transportation would be coordinated through [facility]. CM called [facility] and spoke with Idalia, who coordinated transport for intake appointment. Idalia reported approximate seed cone picker time of 1100 on 04/03/23 at Ramona's home in [place], [place]. She encouraged Ramona call on Sunday, the after 1500 to inquire as to arrival time for [facility]. Ramona will have transport from [facility] to home with pick scheduled for 1245 on 04/03/23. CM called Ramona to review information above; Ramona advised she would be rescheduling the [facility] appointment, and therefore, would not require transportation support. CM called [facility] to cancel transportation.
--- NOTE | 2023-03-29 11:55 | PDOC.CMPRO ---
Date of service: 03/29/23 Time of Service: 11:55 Care Management Progress Note Progress Note Text Progress Note Text: CM spoke with Allie HP at [facility] who reported Ramona would be safety planning home. Allie reviewed current life stressors and shared that Rmaona and her mother are currently struggling in their relationship; resulting in both women requiring individual support. CM consulted by ED to coordinate transport for [facility] appointment on Sunday. CM called [facility], past due accounts clerk reported that Ramona has an appointment with Adri for an intake on Sunday at 1145. CM notified that transportation would be coordinated through [facility]. CM called [facility] and spoke with Idalia, who coordinated transport for intake appointment. Idalia reported approximate mixing picker tender time of 1100 on 04/03/23 at Ramona's home in [place], [place]. She encouraged Ramona call on Sunday, the after 1500 to inquire as to arrival time for [facility]. Ramona will have transport from [facility] to home with pick scheduled for 1245 on 04/03/23. CM called Ramona to review information above; Ramona advised she would be rescheduling the [facility] appointment, and therefore, would not require transportation support. CM called [facility] to cancel transportation.
--- NOTE | 2023-03-29 14:52 | PDOC.MHCN ---
Date of service: 03/29/23 Time of Service: 14:52 PHQ-9 Over the last 2 weeks, how often have you been bothered by any of the following problems? 1. Little interest or pleasure in doing things: nearly every day 2. Feeling down, depressed, or hopeless: nearly every day 3. Trouble falling or staying asleep, or sleeping too much: several days 4. Feeling tired or having little energy: several days 5. Poor appetite or overeating: more than half the days 6. Feeling bad about yourself - or that you are a failure or have let yourself and your family down: nearly every day 7. Trouble concentrating on things, such as reading the newspaper or watching television: more than half the days 8. Moving or speaking so slowly that other people could have noticed? - Or the opposite - being so fidgety or restless that you have been moving around a lot more than usual: several days 9. Thoughts that you would be better off or of hurting yourself in some way: several days Total score: 17 If you checked off any problems, how difficult have these problems made it for you to do your work, take care of things at home, or get along with other people?: extremely difficult Source: Developed by Drs. Ramón Fuentes, Vaishali Mora, Edison Azevedo and colleagues, with an educational constanza from [employer]. Suicide Severity Rate CSSRS Have you wished you were or wished you could go to sleep and not wake up?: Yes Have you actually had any thoughts of killing yourself?: Yes CSSRS2 Have you been thinking about how you might do this?: No Have you had these thoughts and had some intention of acting on them?: No Have you started to work out or worked out the details of how to kill yourself? Do you intend to carry out this plan?: No CSSRS3 Have you ever done anything, started to do anything or prepared to do anything to end your life?: No CSSRS4 Was this within the past three months?: No Screening Score Total Score: 4 Screening: Positive Mental Health Emergency Note Release [facility] release signed:: Yes Reason for Visit Client was directed to go to the ED by someone by the name of Ck due to her severe panic and inability to regulate herself. Her mother transported her to the ED and was present during the assessment. The ED requested assessment. Assessment was completed face to face. In the last 2 weeks has the pt presented for ES prior to today?: Unknown Client Information Client is: Adult Outpatient Well Housed: Yes Non Suicidal Self Injury Current: Yes, The client will scratch at herself when she is in a panic attack. Mother said that at times she makes herself bleed. The client was observed rubbing, itching and scratching her arms during the assessment. History: yes, same as above Safety Risk/Harm to Self or Others Current Ideation to Harm Self or Others: No Risk: Does risk to harm exist?: No Risk: Low Risk Duty to warn indicated: No Asssessment/Mental Status Appearance: Well groomed Attitude: Guarded and Friendly Behavior: Repetitive movements Speech: Normal and Soft Affect: Flat and Cogruent with mood Mood: Stressed, Anxious and Irritable Thought process: Circumstational and Poverty of content Hallucinations: No Delusions: No Attention: Unremarkable Perception: Not impaired Orientation: Fully orientated Memory: Intact Insight: Fair Judgement: Poor Neurovegetative Symptoms Sleep: Decrease Appetitie: Decrease Interests: Decrease Energy: Decrease Libido: Not applicable Substance Use: Do you use nicotine?: No Have you used substances in the last 7 days?: No Additional Issues: Assaultive/Threatening Behavior: No Medical Concerns: No Client engaged in active self harm w/weapon: No Threatening to run away: No Child reported abuse/neglect: No Voluntarily presenting for services: Yes Domestic violence is a concern: No Extreme Psychosis or extreme behavior is present: Yes Impression The client is a 38 year old, single, female who lives with her mother in [facility]. She has been unemployed for 2 years when her panic attacks became disabling. She presents sitting on her bed with her mother at the foot of the bed jayshree-cross in shorts and a tank top. She makes fair eye contact and at times it appeared as she was assessing this clinician's facial expressions as her mother spoke about her symptoms. She presents as anxious and is observed being fidgety in her bed and rubbing and scratching her arms which, her mother reported at times she does so intensely that she makes herself bleed. The client scored a 17/27 on the PHQ-9. This suggest a possible depression as well in congruence with the decrease in appetite, sleep, energy and interests. Resources Reosurces reviewed and given:: Crisis Bed Plan/Disposition Recommended Disposition: [facility] Services [facility] Services: Other. Plan: The CARE Bed was discussed however, the client declined this as an option. Client completed a safety plan which was shared with her, the ED and will be scanned in her chart. Client will outreach to [facility] or [facility] as needed and was encouraged to keep her appointments. She missed 2 today at [facility] due to going to the ED. Her case management appointment was rescheduled for 04/03/23 @ 11:45am. Person reported agreement to plan: Yes Reports/communication Outcome discussed with: ED/Personnel
== END 2023-03-29 12:20 | disposition home or self-care (01) ==
PROVIDERS: Emergency Provider Emergency Medicine; PCP Nurse Practitioner Family
DX: F32.9 Major depressive disorder, single episode, unspecified (principal); R45.851 Suicidal ideations; F42.9 Obsessive-compulsive disorder, unspecified
CPT/HCPCS: 99285

== ENCOUNTER 2023-04-15 08:45 | Emergency (ER) | payer MEDICAID, SELFPAY ==
[2023-04-15 08:51] VITALS: BP 123/94; PULSE 113; RESP 24; TEMP 37.2; O2SAT 96
--- NOTE | 2023-04-15 08:54 | ED.GENADUL_ITS ---
Discharge Plan Discharge Details Chief Complaint: PsychEval Clinical Impression: Suicidal ideation Primary Care Provider: Juana Saavedra ED Provider: Anthony Vaughn Home Meds and New Rx's Prescriptions: No Action quetiapine 100 mg tablet 100 mg PO QHS quetiapine 50 mg tablet 50 mg PO BID clonazepam 0.5 mg tablet 0.5 mg PO BID Qty: 20 0RF Patient Comments: does not take anymore trazodone 150 mg tablet 150 mg PO QHS Patient Comments: unable to get refill escitalopram oxalate [Lexapro] 20 mg Tablet 20 mg PO DAILY clonazepam 0.5 mg tablet 0.5 mg PO BID Qty: 20 0RF Medical Decision Making This is an uncomfortable appearing tachycardic 38-year-old female with a history of anxiety, depression, borderline personality disorder now in the emergency department in the setting of intrusive thoughts and not being able to sleep. She also endorsed suicidal ideation. Given her tachycardia and her reported hematemesis will obtain basic labs. Patient is requesting her clonazepam and quetiapine which she has not yet taken today. Will order a sitter for the patient. She has no nuchal rigidity to suggest meningitis. She is not altered to suggest encephalitis. Suspect her tachycardia is secondary to anxiety given her history of the same and hospitalization at the [facility]. No pain or proportion to suggest necrotizing soft tissue infection. No sign of anticholinergic toxidrome to suggest overdose. No signs of sympathomimetic toxidrome. We will repeat heart rate once patient takes her medications. 9:23 AM Patient requested voluntary intramuscular medications. I ordered 2.5 mg of droperidol and 1 mg of midazolam. 11 AM Salicylates negative.CBC with mild normocytic anemia. Anemia new compared to pr ior. No leukocytosis. No thrombocytopenia. No HILLARY. No acute electrolyte abnormalities. 11:34 AM I spoke with Ortiz from [facility] [employer] [facility]. He will assess the patient. Patient's heart rate normalized in the ED following medications. Patient was at the [facility] in January. Patient's nurse Bettie took report from [facility]. Patient had suicidal ideation and reportedly wanted to hang herself. She has OCD. She lost her job approximately 2 years ago. She has had multiple hospitalizations. She has had difficulty leaving home. She is single and has no children. She reportedly has difficulty setting goals. 1:35 PM I spoke again to Ortiz who reported that he has seen the patient. He recommended voluntary for inpatient placement. 7:37 PM She has had no hematemesis in the emergency department. I gave her her nighttime clonazepam and quetiapine. Have asked her nurse to clarify her nighttime dose of quetiapine as it also appears that she takes an additional 100 mg of quetiapine nightly. I held her trazodone as I was concerned for the possibility of QTc prolongation. We will sign patient out to Dr. Park awaiting placement voluntarily. HPI General Date/Time Provider Initiated Documentation: 04/15/23 08:51 . HPI Narrative: This is a 38-year-old female with history of anxiety and and obsessive- compulsive disorder now in the emergency department in setting of suicidal ideation and intrusive thoughts. Patient reported that she stopped seeing her therapist recently as she was reportedly unable to help the patient. She says that she is not had her quetiapine nor her clonazepam this morning. Patient denies any falls. She denies any headaches fevers and neck pain. She reports that she has been hospitalized in the past at the [facility]. She denies routine tobacco, ethanol, and illicits. She has not had any new m edications recently. She does feel short of breath. She reports that she vomited once this morning and had some blood in her emesis. She said no fevers nor chest pain. She has not had anything to eat to eat this morning. Related Data Home Medications Medication Instructions Recorded Confirmed escitalopram oxalate 20 mg tablet 20 mg PO DAILY 11/11/21 04/15/23 (Lexapro) trazodone 150 mg tablet 150 mg PO QHS 01/14/23 03/08/23 quetiapine 100 mg tablet 100 mg PO QHS 03/07/23 03/29/23 quetiapine 50 mg tablet 50 mg PO BID 03/07/23 03/29/23 clonazepam 0.5 mg tablet 0.5 mg PO BID #20 tabs 03/08/23 03/08/23 clonazepam 0.5 mg tablet 0.5 mg PO BID #20 tabs 03/29/23 Previous Rx's Medication Instructions Recorded clonazepam 0.5 mg tablet 0.5 mg PO BID #20 tabs 03/08/23 clonazepam 0.5 mg tablet 0.5 mg PO BID #20 tabs 03/29/23 Allergies Allergy/AdvReac Type Severity Reaction Status Date / Time cats Allergy Uncoded 04/15/23 08:57 General JASKARAN: 2 PFSH All Active Problems (Updated 04/15/23 @ 09:26 by Anthony Vaughn MD) OCD (obsessive compulsive disorder) (Acute) MDD (major depressive disorder) (Chronic) Discharge planning issues (Acute) DVT prophylaxis (Acute) Suicidal ideation (Acute) Medical History (Updated 04/15/23 @ 09:26 by Anthony Vaughn MD) Anxiety and depression Borderline personality disorder Menorrhagia with irregular cycle Panic anxiety syndrome Sudden-onset sensorineural hearing loss Tinnitus of left ear Family History (Updated 01/02/23 @ 15:27 by Massiel Hartmann) Mother No problems noted. Father , 52 Cancer Prostate Brother No problems noted. Social History (Updated 01/02/23 @ 15:26 by Massiel Hartmann) Smoking/Tobacco Use Status: Never Second Hand Exposure: No Smoking risk assessment performed?: Yes Alcohol Intake: former Drug use: Current Sobriety Substance use type: does not use Caregiver/Support person: No Household members: other Details: Mother Housing: house Do you need help understanding health information?: Never Pets and animals: No Sexually active: No Do you think of yourself as: straight/heterosexual Current gender identity: female What is your relationship status?: never How often do you talk on the phone with friends or family?: decline to answer How often do you get together with friends or relatives?: decline to answer How often do you attend sikhism or protestant services?: decline to answer Do you belong to any clubs or organized social groups?: no Panel score (0-1 are the most socially isolated patients): 0 What type of physical activity do you participate in: none Frequency: does not exercise Keerthi/Yazdanism: No preference Special keerthi needs: No Seatbelt use: always Drive intox or ride w/intox route cdl driver: No Do you feel safe at home: Yes Do you feel safe in your relationship?: Yes Additional Social history: lives with mother DT mental health Exam Narrative Exam Narrative: General: Uncomfortable-appearing with occasional outbursts and grunting noises. Able to focus and respond appropriately. Head: Normocephalic, atraumatic. Eye: Extraocular eye movements intact. No conjunctival injection. No scleral icterus. Ear, nose, mouth, throat: Grossly normal inspection. Normal voice, handling secretions normally. Neck: Trachea midline. Cardiovascular: Well-perfused distal extremities. Respiratory: Nonlabored respiration. Gastrointestinal: Nondistended abdomen. Musculoskeletal: No edema. Moving all 4 extremities spontaneously. Skin: Normal for age and race, grossly normal temperature and turgor. No acute rash. Neurologic: Alert and appropriate, no apparent acute deficits. GCS 15. Psychiatric: Mood and manner are appropriate. Grooming and personal hygiene are appropriate.
[2023-04-15] MEDS: Droperidol 5 MG/2 ML VIAL 2.5 MG IM (09:40)
[2023-04-15] MEDS: Midazolam 2 MG/2 ML VIAL 1 MG IM (09:40)
[2023-04-15] MEDS: QUEtiapine 25 MG TAB (09:54)
[2023-04-15] MEDS: clonazePAM 0.5 MG TAB (09:54)
[2023-04-15 09:56] LABS: Abs Immature Grans 0.01 10^3/uL (0.0-0.06); Absolute Basophil Count 0.05 10^3/uL (0.0-0.2); Absolute Eosinophil Count 0.03 10^3/uL (0.0-0.7); Absolute Lymphocyte Count 1.01 10^3/uL (1.2-3.4); Absolute Monocyte Count 0.43 10^3/uL (0.1-0.8); Absolute Neutrophil Count 3.28 10^3/uL (1.2-6.7); Eosinophils % 0.6; HGB 10.7 g/dL (11.2-15.7); Immature Grans % 0.2; MCH 25.1 pg (27.0-33.0); MCHC 31.5 % (32.0-36.0); MCV 80 fL (80-95); Monocytes % 8.9; Neutrophils % 68.3; Platelet Count 322 10^3/uL (130-400); RBC 4.26 10^6/uL (3.93-5.22); RDW 13.9 % (11.7-14.6); RDW-SD 40.3 fL; WBC 4.81 10^3/uL (4.4-10.8)
[2023-04-15 09:59] VITALS: PULSE 76; O2SAT 94
[2023-04-15 10:08] LABS: Anion Gap 9.3 mmol/L (3-11); BUN 11 mg/dL (7-18); CO2 27.7 mmol/L (21.0-32.0); CREATININE 0.6 mg/dL (0.55-1.02); Chloride 102 mmol/L (98-107); Estimated GFR 119.23 (mL/min/1.73m2); Glucose 98 mg/dL (74-106); Potassium 3.6 mmol/L (3.5-5.1); Sodium 139 mmol/L (136-145)
[2023-04-15 10:18] LABS: ETHANOL BLOOD < 3.0 mg/dL (<10)
[2023-04-15 10:35] LABS: HCG Qual (Serum) Negative
[2023-04-15 10:38] LABS: Acetaminophen < 2 ug/mL (10-30); Salicylate < 2.8 mg/dL (<2.8)
[2023-04-15 13:47] LABS: Bilirubin Negative (Negative); Blood Trace-intact (Negative); Clarity Sl Cloudy (Clear); Glucose Negative (Negative); Ketones 15 mg/dL (Negative); Leukocyte Esterase Small (Negative); Nitrite Negative (Negative); Specific Gravity >= 1.030 (1.005-1.025); Urobilinogen 0.2 mg/dL (Up to 0.2)
[2023-04-15 13:55] LABS: Bacteria Few HPF (Negative); C & S Indicated? No/Sq. Contamination; Casts 0-2 Hyaline LPF (Negative); Crystals Negative HPF (Negative); Epithelial Cells Moderate HPF (Negative); Mucus Heavy (Negative); RBC 0-2 HPF (0-2)
[2023-04-15 14:00] LABS: *AMPHETAMINES SCREEN URINE Negative (Negative); *BARBITURATES SCREEN URINE Negative (Negative); *BENZODIAZEPINES SCREEN URINE Positive (Negative); Cannabinoids THC Negative (Negative); Cocaine Screen,Urine Negative (Negative); METHADONE URINE SCREEN Negative (Negative); OPIATES URINE SCREEN Negative (Negative)
[2023-04-15 14:13] LABS: Tricyclic Antidepressants Negative (Negative)
[2023-04-15] MEDS: Midazolam 2 MG/2 ML VIAL IM (15:03)
[2023-04-15] MEDS: Droperidol 5 MG/2 ML VIAL 1.25 MG IM (15:03)
--- NOTE | 2023-04-15 15:09 | NUR.NOTE ---
Nursing Note: pt is on the phone with her mother, pt is telling mother that we have not stabilized or given medications and that we have not fed her. PT was given multiple doses of medications to help with anxiety, pt was given soup that she had asked for for lunch.
--- NOTE | 2023-04-15 15:58 | PDOC.MHCN ---
Date of service: 04/15/23 Time of Service: 01:00 PHQ-9 Over the last 2 weeks, how often have you been bothered by any of the following problems? 1. Little interest or pleasure in doing things: more than half the days 2. Feeling down, depressed, or hopeless: nearly every day 3. Trouble falling or staying asleep, or sleeping too much: nearly every day 4. Feeling tired or having little energy: nearly every day 5. Poor appetite or overeating: several days 6. Feeling bad about yourself - or that you are a failure or have let yourself and your family down: more than half the days 7. Trouble concentrating on things, such as reading the newspaper or watching television: more than half the days 8. Moving or speaking so slowly that other people could have noticed? - Or the opposite - being so fidgety or restless that you have been moving around a lot more than usual: more than half the days 9. Thoughts that you would be better off or of hurting yourself in some way: nearly every day Total score: 21 If you checked off any problems, how difficult have these problems made it for you to do your work, take care of things at home, or get along with other people?: extremely difficult PHQ-9 Results: Positive Source: Developed by Drs. Ramón Fuentes, Vaishali Mora, Edison Azevedo and colleagues, with an educational constanza from [employer]. Suicide Severity Rate CSSRS Have you wished you were or wished you could go to sleep and not wake up?: Yes Have you actually had any thoughts of killing yourself?: Yes CSSRS2 Have you been thinking about how you might do this?: Yes Have you had these thoughts and had some intention of acting on them?: Yes Have you started to work out or worked out the details of how to kill yourself? Do you intend to carry out this plan?: No CSSRS3 Have you ever done anything, started to do anything or prepared to do anything to end your life?: No CSSRS4 Was this within the past three months?: Yes Screening Score Total Score: 6 Screening: Positive Mental Health Emergency Note Release [facility] release signed:: Yes Reason for Visit seeking help for suicidal ideation In the last 2 weeks has the pt presented for ES prior to today?: No Client Information Client is: Adult Outpatient Well Housed: Yes Non Suicidal Self Injury Current: No History: yes, [facility] due to suicidal ideation Safety Risk/Harm to Self or Others Current Ideation to Harm Self or Others: Yes to self. Intent: yes, has intent. Plan: no.does not have a plan. Risk: Does risk to harm exist?: yes. Risk: High Risk Asssessment/Mental Status Appearance: Other Attitude: Guarded and Hostile Behavior: Agitated Speech: Pressured and Soft Affect: Constricted Mood: Elevated, Sad, Stressed, Depressed and Irritable Thought process: Racing Hallucinations: No Delusions: No Attention: Wandering Perception: Not impaired Orientation: Fully orientated Memory: Intact Insight: Fair Judgement: Fair Neurovegetative Symptoms Sleep: Decrease Appetitie: Decrease Energy: Decrease Libido: Not applicable Substance Use: Other Drug Issues: Other Do you use nicotine?: No Have you used substances in the last 7 days?: No Additional Issues: Assaultive/Threatening Behavior: No Medical Concerns: No Client engaged in active self harm w/weapon: No Threatening to run away: No Child reported abuse/neglect: No Voluntarily presenting for services: No Domestic violence is a concern: No Extreme Psychosis or extreme behavior is present: No Plan/Disposition Recommended Disposition: Hospitalization facilities contacted. Plan: Client will stay in the hospital until she is able to go inpatient when an opening occurs. Referrals have been sent out Person reported agreement to plan: Yes Facilities contacted if Applicable [facility] Accepted, Pending review. Information Sent to [place]: Referral [facility] Accepted, Pending review. Information Sent to [facility]: Referral [facility] Accepted, Pending review. Information Sent to [place], Pending review. Information Sent to [place]: Referral Reports/communication Outcome discussed with: ED/Personnel Final Disposition/Discharge Transportation Checklist completed and faxed: No Transport level: Other
[2023-04-15] MEDS: clonazePAM 0.5 MG TAB PO ×2 (19:19)
[2023-04-15] MEDS: QUEtiapine 25 MG TAB 50 MG PO (19:19)
--- NOTE | 2023-04-15 20:16 | NUR.NOTE ---
Nursing Note:Patients mother Renee (on HIPAA) called and wanted to know the status of her daughter. She provided several details regarding her past history. She states that Marylu was diagnosed by [facility] with severe OCD and suffers from intrusive thoughts and ruminations 09/04. This has derailed her life over the last 2.5 years. She has been unable to recover from this and lost her job and apartment. She moved to [place] to live with her mother back in September and has had several hospitalizations since then. She is going through human services but has missed several appointments with them. They are trying to get a window caser set up. She has been out of meds for an unknown amount of time now. Her PCP is [facility] but she is unable to write for the psychiatric meds. She does have an appointment on this week with Juana. She needs an immediate referral to psychiatry. Mom states that patient was prescribed Loiza carbonate 300mg BID by Elie most recently and suddenly stopped taking it when she ran out as there was no one to refill this for her. She also states she takes seroquel 50mg BID and 100mg at night. Has also been out of those. She does take Lexapro as well which she does still have some. Mom's contact number is: Home: She would like to be updated if there is any progress in getting inpatient placement for her.
[2023-04-15] MEDS: diazePAM 5 MG TAB 10 MG PO (23:47)
--- NOTE | 2023-04-15 23:49 | NUR.NOTE ---
Nursing Note: Pt awake and reporting increased anxiety. aware.
--- NOTE | 2023-04-16 05:51 | NUR.NOTE ---
Nursing Note: Patient awoke 05:35am stating she was having a panic attack. MD aware and placed order for meds. Patient continues to experience panic attack and asked to call mother. This is not detailed in the behavioral care plan. Per Anival Catalan for patient to call mom. Patient agreeable to calling her later this morning as it is still early. Patient requested CPSO to stay and talk to her. CPSO in room with patient.
[2023-04-16] MEDS: diazePAM 5 MG TAB 10 MG PO (05:54)
[2023-04-16] MEDS: OLANZapine 10 MG TAB PO (05:54)
--- NOTE | 2023-04-16 07:46 | W.EDPROG ---
Date of service: 04/16/23 Time of Service: 07:46 Medical Decision Making pt signed out to me, seeking voluntary placement for SI, currently calm and cooperative in no distress, sleeping and awakens to voice, will continue to monitor until placement is found Sign Out Sign Out Data: Sign Out Comment: Voluntary in the setting of intrusive thoughts and suicidal ideation. Awaiting inpatient placement. Medically cleared. Has not required involuntary medications. Last updated by Anthony Vaughn MD at 04/15/23 19:39 Sign Out Comment: Voluntary, some intervention was needed throughout the night voluntarily for the patient. She did request antianxiety medications and she was given Zyprexa and Valium. Pending placement Last updated by Edouard Park DO at 04/16/23 07:25 Discharge Plan Discharge Details Chief Complaint: PsychEval Clinical Impression: Suicidal ideation Primary Care Provider: Juana Saavedra ED Provider: Matt Hayward Home Meds and New Rx's Prescriptions: No Action quetiapine 100 mg tablet 100 mg PO QHS quetiapine 50 mg tablet 50 mg PO BID clonazepam 0.5 mg tablet 0.5 mg PO BID Qty: 20 0RF Patient Comments: does not take anymore trazodone 150 mg tablet 150 mg PO QHS Patient Comments: unable to get refill escitalopram oxalate [Lexapro] 20 mg Tablet 20 mg PO DAILY clonazepam 0.5 mg tablet 0.5 mg PO BID Qty: 20 0RF
--- NOTE | 2023-04-16 08:50 | CMSP_ITS ---
Date of service: 04/16/23 Time of Service: 08:50 Care Management Safety Plan Status Status: Voluntary Safety Plan Safety Plan: VOLUNTARY FOR INPATIENT PSYCHIATRIC STABILIZATION.? Patient is appropriate in all interactions since arriving at [facility]; Pt has demonstrated appropriate coping and communication skills, has articulated his or her needs and concerns and is fully engaged during staff interactions. Safety plan has been established with patient, and care team, to adhere to patient goals, identify restrictions based on behavioral status, address nutrition, and determine allowed personal belongings, tools for hygiene and personal care. Determine level of activity including ambulation, level of supervision, visitors, and determine privileges based on behaviors and level of engagement by pt. CM reviewed individually with RN supervisor microbiology technologists, ER provider, nursing and [facility] business services associate. SAFETY PLAN: 1. Will remain on suicide precautions. In Paper Clothes 2. Will remain in room under direct supervision of one-on-one staff at all times provided by CPSO; [employer], SCREEN OPERATOR railroad conductor. 3. May have paper cups, plates, finger foods as well as a cardboard spoon with which to eat meals. 4. Follow [facility] Management of the Admitted Behavioral Health Patient policy. 5. Comfort bath system only, shower permitted with escort at nursing discretion. 6. No personal belongings-soft items permitted at nursing discretion. 7. Visitors- None at this time. 8. Activities: soft cart items approved per nursing discretion. 9.?Bathroom privileges with escort in the ED, available in room without limitation on M/S. 10. Phone: contact limited to family at this time, via cordless phone at nursing discretion. 11. Due to VOLUNTARY status, if patient wishes to leave [facility], staff will contact [facility] Crisis Screener ([phone]) and On-Call Making Department Preparer ([phone]) as soon as possible. In the event of elopement, notify [place] [employer] ([phone]). Patient is currently voluntarily at [facility] and seeking inpatient admission when a bed becomes available. [facility] Frontline Tombstone Setter will continue seeking placement. Please contact the Clip Wrapper Making Department Preparer ([phone]) and [facility] Tombstone Setter ([phone]) for any needed changes in the Safety Plan. Safety plan has been provided to interdepartmental care team.
--- NOTE | 2023-04-16 08:50 | PDOC.CMSAFE ---
Date of service: 04/16/23 Time of Service: 08:50 Care Management Safety Plan Status Status: Voluntary Safety Plan Safety Plan: VOLUNTARY FOR INPATIENT PSYCHIATRIC STABILIZATION.? Patient is appropriate in all interactions since arriving at [facility]; Pt has demonstrated appropriate coping and communication skills, has articulated his or her needs and concerns and is fully engaged during staff interactions. Safety plan has been established with patient, and care team, to adhere to patient goals, identify restrictions based on behavioral status, address nutrition, and determine allowed personal belongings, tools for hygiene and personal care. Determine level of activity including ambulation, level of supervision, visitors, and determine privileges based on behaviors and level of engagement by pt. CM reviewed individually with RN dispatch supervisor, ER provider, nursing and [facility] optometric assistant. SAFETY PLAN: 1. Will remain on suicide precautions. In Paper Clothes 2. Will remain in room under direct supervision of one-on-one staff at all times provided by CPSO; [employer], VEHICLE CHECK IN CLERK hospice director. 3. May have paper cups, plates, finger foods as well as a cardboard spoon with which to eat meals. 4. Follow [facility] Management of the Admitted Behavioral Health Patient policy. 5. Comfort bath system only, shower permitted with escort at nursing discretion. 6. No personal belongings-soft items permitted at nursing discretion. 7. Visitors- None at this time. 8. Activities: soft cart items approved per nursing discretion. 9.?Bathroom privileges with escort in the ED, available in room without limitation on M/S. 10. Phone: contact limited to family at this time, via cordless phone at nursing discretion. 11. Due to VOLUNTARY status, if patient wishes to leave [facility], staff will contact [facility] Crisis Screener ([phone]) and On-Call Formulation Scientist ([phone]) as soon as possible. In the event of elopement, notify [place] [employer] Police ([phone]). Patient is currently voluntarily at [facility] and seeking inpatient admission when a bed becomes available. [facility] Frontline Oil And Gas Specialist will continue seeking placement. Please contact the Pig Machine Operator Helper Formulation Scientist ([phone]) and [facility] Oil And Gas Specialist ([phone]) for any needed changes in the Safety Plan. Safety plan has been provided to interdepartmental care team.
--- NOTE | 2023-04-16 11:50 | ED.PROG_ITS ---
Date of service: 04/16/23 Time of Service: 11:51 Medical Decision Making DISTRIBUTION LEAD Delgado at [facility] called and reviewed case and accepted to their facility Sign Out Sign Out Data: Sign Out Comment: Voluntary in the setting of intrusive thoughts and suicidal ideation. Awaiting inpatient placement. Medically cleared. Has not required involuntary medications. Last updated by Anthony Vaughn MD at 04/15/23 19:39 Sign Out Comment: Voluntary, some intervention was needed throughout the night voluntarily for the patient. She did request antianxiety medications and she was given Zyprexa and Valium. Pending placement Last updated by Edouard Park DO at 04/16/23 07:25 Discharge Plan Disposition Specific Psychiatric Facility: [facility] Condition: Stable Discharge Details Chief Complaint: PsychEval Clinical Impression: Suicidal ideation Primary Care Provider: Juana Saavedra ED Provider: Matt Hayward Foster Meds and New Rx's Prescriptions: No Action quetiapine 100 mg tablet 100 mg PO QHS quetiapine 50 mg tablet 50 mg PO BID clonazepam 0.5 mg tablet 0.5 mg PO BID Qty: 20 0RF Patient Comments: does not take anymore trazodone 150 mg tablet 150 mg PO QHS Patient Comments: unable to get refill escitalopram oxalate [Lexapro] 20 mg Tablet 20 mg PO DAILY clonazepam 0.5 mg tablet 0.5 mg PO BID Qty: 20 0RF
[2023-04-16] MEDS: clonazePAM 0.5 MG TAB PO (12:47)
[2023-04-16] MEDS: QUEtiapine 25 MG TAB 50 MG PO (12:47)
[2023-04-16 13:11] VITALS: BP 90/62; PULSE 102
--- NOTE | 2023-04-16 15:48 | W.EDPROG ---
Date of service: 04/16/23 Time of Service: 15:48 Medical Decision Making This patient was signed out ot me. Please see previous notes for H&P and initial eval. In brief, 38yo F with SI pending voluntary psychiatric admission with transfer pending to [facility]. EMS arrived to transport patient. C/o anxiety prior to leaving; given 1mg PO Ativan. Transferred to [facility]. Sign Out Sign Out Data: Sign Out Comment: Voluntary in the setting of intrusive thoughts and suicidal ideation. Awaiting inpatient placement. Medically cleared. Has not required involuntary medications. Last updated by Anthony Vaughn MD at 04/15/23 19:39 Sign Out Comment: Voluntary, some intervention was needed throughout the night voluntarily for the patient. She did request antianxiety medications and she was given Zyprexa and Valium. Pending placement Last updated by Edouard Park DO at 04/16/23 07:25 Sign Out Comment: transferring to [facility] for SI, no issues during shift, transfer papers done, waiting for transport. Last updated by Matt Hayward MD at 04/16/23 14:57 Discharge Plan Disposition Patient Disposition: Psychiatric Hospital/Unit Specific Psychiatric Facility: [facility] Condition: Stable Discharge Details Chief Complaint: PsychEval Clinical Impression: Suicidal ideation Primary Care Provider: Juana Saavedra ED Provider: Shilpa Flores Home Meds and New Rx's Prescriptions: No Action quetiapine 100 mg tablet 100 mg PO QHS quetiapine 50 mg tablet 50 mg PO BID clonazepam 0.5 mg tablet 0.5 mg PO BID Qty: 20 0RF Patient Comments: does not take anymore trazodone 150 mg tablet 150 mg PO QHS Patient Comments: unable to get refill escitalopram oxalate [Lexapro] 20 mg Tablet 20 mg PO DAILY clonazepam 0.5 mg tablet 0.5 mg PO BID Qty: 20 0RF
--- NOTE | 2023-04-16 15:54 | CMDISCH_ITS ---
Date of service: 04/16/23 Time of Service: 15:54 LACE Index Scoring Tool Questions: Length of Stay (in days): 1 Was the patient admitted via the E.D.?: Yes E.D. Visits: 4 Answers: Total Score: 8 Risk of Readmission: Low Risk Care Management Discharge Plan Reason for Hospitalization: Suicidal ideation Discharge Plan: Marylu is discharged to [facility] for inpatient psychiatric treatment. [facility] [employer] will provide transportation. Patient/Family Education Needs: Review transfer instructions. Services Needed at Discharge: Psychiatric Facility ([facility]) and Transportation ([employer])
[2023-04-16] MEDS: LORazepam 1 MG TAB PO (16:07)
== END 2023-04-16 16:15 ==
PROVIDERS: Emergency Medicine; Emergency Provider Student in an Organized Health Care Education/Training Program; PCP Nurse Practitioner Family
DX: R45.851 Suicidal ideations (principal); G47.00 Insomnia, unspecified; D64.9 Anemia, unspecified; F41.9 Anxiety disorder, unspecified; F32.A Depression, unspecified; F60.3 Borderline personality disorder
CPT/HCPCS: 36415; 80048; 80307; 99285; 80320; 80329; 81003; 81015; 84703; 85025; 99284; J1790; J2250

== ENCOUNTER 2023-05-05 08:46 | Emergency (ER) | payer MEDICAID, SELFPAY ==
[2023-05-05 09:00] VITALS: BP 130/85; PULSE 101; O2SAT 98
[2023-05-05] MEDS: LORazepam 2 MG/ML VIAL IVP (09:07)
[2023-05-05] MEDS: Ondansetron 4 MG/2 ML VIAL IVP (09:08)
--- NOTE | 2023-05-05 09:14 | W.ED.GENAD ---
Discharge Plan Disposition Patient Disposition: Home Discharge Details Chief Complaint: Anxiety Clinical Impression: Anxiety Primary Care Provider: Juana Saavedra ED Provider: Bereket Shepard Home Meds and New Rx's Prescriptions: No Action quetiapine 100 mg tablet 100 mg PO QHS quetiapine 50 mg tablet 50 mg PO BID clonazepam 0.5 mg tablet 0.5 mg PO BID Qty: 20 0RF Patient Comments: does not take anymore trazodone 150 mg tablet 150 mg PO QHS Patient Comments: unable to get refill escitalopram oxalate [Lexapro] 20 mg Tablet 20 mg PO DAILY clonazepam 0.5 mg tablet 0.5 mg PO BID Qty: 20 0RF Discharge Instructions Instructions: Anxiety (ED) Additional Instructions: Please follow-up closely with your outpatient providers and [facility] services. Please return to the emergency department for any worsening symptoms Medical Decision Making 38-year-old female history of major depressive disorder, obsessive-compulsive disorder, presents with severe anxiety, uncontrollable crying and intermittent dry heaving related to anxiety over the last day, unclear at this point whether patient is experiencing any SI or HI delusions or hallucinations however patient is redirectable cooperative and calm at moments, however in severe anxiety crisis at the moment requiring parenteral anxiolysis with Ativan, have loaded Zofran and standing fluids, low suspicion for intoxication trauma infectious etiology cardiac or pulmonary or GI pathology. Will more thoroughly address psychiatric symptoms when patient is more calm. Will observe on monitor, close reassessment, family at bedside 10: 27 patient resting comfortably no acute distress, patient endorses that she has close follow-up with her therapist twice a week and also routinely sees her psychiatrist. Will have patient evaluated by [facility] likely safety plan with discharge home pending close reassess 12: 00 patient resting comfortably no acute distress calm cooperative. No SI no HI. Was evaluated by [facility] to establish safety plan, patient has close follow-up in the coming days. HPI General Date/Time Provider Initiated Documentation: 05/05/23 08:47. HPI Narrative: 38-year-old female history of OCD, major depressive disorder, presents with extreme anxiety and obsessive thoughts, has been crying uncontrollably dry heaving related to anxiety over the last day per patient and family Related Data Home Medications Medication Instructions Recorded Confirmed escitalopram oxalate 20 mg tablet 20 mg PO DAILY 11/11/21 05/05/23 (Lexapro) trazodone 150 mg tablet 150 mg PO QHS 01/14/23 05/05/23 quetiapine 100 mg tablet 100 mg PO QHS 03/07/23 05/05/23 quetiapine 50 mg tablet 50 mg PO BID 03/07/23 05/05/23 clonazepam 0.5 mg tablet 0.5 mg PO BID #20 tabs 03/08/23 04/16/23 clonazepam 0.5 mg tablet 0.5 mg PO BID #20 tabs 03/29/23 04/16/23 Previous Rx's Medication Instructions Recorded clonazepam 0.5 mg tablet 0.5 mg PO BID #20 tabs 03/08/23 clonazepam 0.5 mg tablet 0.5 mg PO BID #20 tabs 03/29/23 Allergies Allergy/AdvReac Type Severity Reaction Status Date / Time cats Allergy Uncoded 05/05/23 12:00 General Stated Complaint: Anxiety JASKARAN: 3 Review of Systems Narrative: Review of Systems Constitutional: negative Eyes: negative ENT: negative Cardiovascular: negative Respiratory: negative Gastrointestinal: negative : negative Musculoskeletal: negative Skin: negative Neurologic: negative Psych: Anxiety, obsessive thoughts PFSH All Active Problems (Updated 05/05/23 @ 12:01 by Bereket Shepard MD) Anxiety (Chronic) OCD (obsessive compulsive disorder) (Acute) MDD (major depressive disorder) (Chronic) Discharge planning issues (Acute) DVT prophylaxis (Acute) Suicidal ideation (Acute) Medical History (Updated 05/05/23 @ 12:01 by Bereket Shepard MD) Anxiety and depression Borderline personality disorder Menorrhagia with irregular cycle Panic anxiety syndrome Sudden-onset sensorineural hearing loss Tinnitus of left ear Family History (Updated 01/02/23 @ 15:27 by Massiel Hartmann) Mother No problems noted. Father , 52 Cancer Prostate Brother No problems noted. Social History (Updated 01/02/23 @ 15:26 by Massiel Hartmann) Smoking/Tobacco Use Status: Never Second Hand Exposure: No Smoking risk assessment performed?: Yes Alcohol Intake: former Drug use: Never Substance use type: does not use Caregiver/Support person: No Household members: other Details: Mother Housing: house Do you need help understanding health information?: Never Pets and animals: No Sexually active: No Do you think of yourself as: straight/heterosexual Current gender identity: female What is your relationship status?: never How often do you talk on the phone with friends or family?: decline to answer How often do you get together with friends or relatives?: decline to answer How often do you attend buddhism or catholic services?: decline to answer Do you belong to any clubs or organized social groups?: no Panel score (0-1 are the most socially isolated patients): 0 What type of physical activity do you participate in: none Frequency: does not exercise Keerthi/Yazidi: No preference Special keerthi needs: No Seatbelt use: always Drive intox or ride w/intox crew truck driver: No Do you feel safe at home: Yes Do you feel safe in your relationship?: Yes Additional Social history: lives with mother DT mental health Exam Narrative Exam Narrative: Physical Examination General: alert, awake, cooperative, tearful HEENT: normocephalic, atraumatic; PERRL, EOM intact, conjunctiva normal; no nasal discharge; moist mucous membranes, oral and pharyngeal mucosa normal, tolerating secretions Neck: supple, trachea midline; full ROM Chest: normal to inspection Respiratory: normal respiratory effort, speaking in full sentences Cardiac: regular rate, regular rhythm, S1S2 intact, no murmurs rubs or gallops GI: abdomen soft, non-tender, non-distended; no palpable mass or hepatosplenomegaly Skin: no lesions, rashes or trauma appreciated Neuro: AAOx3, normal speech, moving all extremities Psych: Tearful, anxious Course Vital Signs Vital signs: Vital Signs Pulse 101 H 05/05/23 09:00 Blood Pressure 130/85 05/05/23 09:00 Pulse Oximetry 98 05/05/23 09:00 Pulse 101 H 05/05/23 09:00 Blood Pressure 130/85 05/05/23 09:00 Blood Pressure Position Sitting 05/05/23 09:00 Pulse Oximetry 98 05/05/23 09:00 Oxygen Delivery Method Room Air 05/05/23 09:00 Oxygen Flow Rate 0 05/05/23 09:00
[2023-05-05] MEDS: Normal Saline 1,000 ML 1000 ML IV (09:22)
[2023-05-05 09:33] LABS: Abs Immature Grans 0.01 10^3/uL (0.0-0.06); Absolute Basophil Count 0.09 10^3/uL (0.0-0.2); Absolute Eosinophil Count 0.13 10^3/uL (0.0-0.7); Absolute Lymphocyte Count 1.81 10^3/uL (1.2-3.4); Absolute Neutrophil Count 3.53 10^3/uL (1.2-6.7); Basophils % 1.5; Eosinophils % 2.1; HCT 35.9 % (36.0-46.0); HGB 11.4 g/dL (11.2-15.7); Immature Grans % 0.2; Lymphocytes % 29.8; MCH 25.3 pg (27.0-33.0); MCHC 31.8 % (32.0-36.0); MCV 80 fL (80-95); MPV 9.4 fL (8.0-11.0); Monocytes % 8.2; Neutrophils % 58.2; Platelet Count 369 10^3/uL (130-400); RDW 14.4 % (11.7-14.6); RDW-SD 42.1 fL; WBC 6.07 10^3/uL (4.4-10.8)
[2023-05-05 09:43] LABS: ALT 32 U/L (14-59); AST 17 U/L (15-37); Albumin 4.5 g/dL (3.4-5.0); Alkaline Phosphatase 63 U/L (46-116); Anion Gap 10.3 mmol/L (3-11); BUN 16 mg/dL (7-18); Bilirubin, Total 0.5 mg/dL (0.2-1.0); CO2 26.7 mmol/L (21.0-32.0); CREATININE 0.7 mg/dL (0.55-1.02); Calcium 9.6 mg/dL (8.5-10.1); Chloride 106 mmol/L (98-107); Estimated GFR 114.88 (mL/min/1.73m2); Glucose 91 mg/dL (74-106); Potassium 3.7 mmol/L (3.5-5.1); Sodium 143 mmol/L (136-145); Total Protein 8.1 g/dL (6.4-8.2)
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
== END 2023-05-05 13:00 | disposition home or self-care (01) ==
PROVIDERS: Emergency Provider Emergency Medicine; PCP Nurse Practitioner Family
DX: F41.9 Anxiety disorder, unspecified (principal); F32.9 Major depressive disorder, single episode, unspecified; F42.9 Obsessive-compulsive disorder, unspecified
CPT/HCPCS: 36415; 80053; 96365; 96366; 99283; 85025; J2060; J2405

== ENCOUNTER 2023-05-06 09:52 | Emergency (ER) | payer MEDICAID, SELFPAY ==
[2023-05-06 10:03] VITALS: BP 125/68; PULSE 92; RESP 18; TEMP 36.7; O2SAT 98
[2023-05-06] MEDS: LORazepam 2 MG/ML VIAL IM (10:50)
[2023-05-06 11:26] LABS: Abs Immature Grans 0.02 10^3/uL (0.0-0.06); Absolute Basophil Count 0.06 10^3/uL (0.0-0.2); Absolute Eosinophil Count 0.05 10^3/uL (0.0-0.7); Absolute Lymphocyte Count 1.36 10^3/uL (1.2-3.4); Absolute Monocyte Count 0.45 10^3/uL (0.1-0.8); Absolute Neutrophil Count 3.72 10^3/uL (1.2-6.7); Basophils % 1.1; Eosinophils % 0.9; HGB 10.4 g/dL (11.2-15.7); Immature Grans % 0.4; MCH 25.5 pg (27.0-33.0); MCHC 31.5 % (32.0-36.0); MCV 81 fL (80-95); MPV 9.2 fL (8.0-11.0); Neutrophils % 65.6; Platelet Count 320 10^3/uL (130-400); RBC 4.08 10^6/uL (3.93-5.22); RDW 14.3 % (11.7-14.6); RDW-SD 42.4 fL; WBC 5.66 10^3/uL (4.4-10.8)
[2023-05-06] MEDS: QUEtiapine 25 MG TAB 50 MG PO (11:37)
[2023-05-06] MEDS: clonazePAM 1 MG TAB PO (11:37)
[2023-05-06 11:50] LABS: ALT 28 U/L (14-59); AST 19 U/L (15-37); Albumin 4.2 g/dL (3.4-5.0); Alkaline Phosphatase 54 U/L (46-116); Anion Gap 12.5 mmol/L (3-11); BUN 13 mg/dL (7-18); Bilirubin, Total 0.6 mg/dL (0.2-1.0); CO2 25.5 mmol/L (21.0-32.0); CREATININE 0.7 mg/dL (0.55-1.02); Calcium 8.8 mg/dL (8.5-10.1); Chloride 99 mmol/L (98-107); Estimated GFR 114.88 (mL/min/1.73m2); Glucose 92 mg/dL (74-106); Potassium 3.3 mmol/L (3.5-5.1); Sodium 137 mmol/L (136-145); TSH (W/Ref FT4) 0.65 uIU/mL (0.36-3.74); Total Protein 7.5 g/dL (6.4-8.2)
[2023-05-06 11:57] LABS: ETHANOL BLOOD < 3.0 mg/dL (<10)
[2023-05-06 12:13] LABS: *AMPHETAMINES SCREEN URINE Negative (Negative); *BARBITURATES SCREEN URINE Negative (Negative); *BENZODIAZEPINES SCREEN URINE Negative (Negative); Cannabinoids THC Negative (Negative); Cocaine Screen,Urine Negative (Negative); METHADONE URINE SCREEN Negative (Negative); OPIATES URINE SCREEN Negative (Negative)
[2023-05-06 12:24] LABS: Tricyclic Antidepressants Positive (Negative)
--- NOTE | 2023-05-06 12:39 | ED.GENADUL_ITS ---
Discharge Plan Discharge Details Chief Complaint: PsychEval Primary Care Provider: Juana Saavedra ED Provider: Anthony Vaughn Home Meds and New Rx's Prescriptions: No Action quetiapine 100 mg tablet 100 mg PO QHS quetiapine 50 mg tablet 50 mg PO BID clonazepam 0.5 mg tablet 0.5 mg PO BID Qty: 20 0RF Patient Comments: does not take anymore trazodone 150 mg tablet 150 mg PO QHS Patient Comments: unable to get refill clonazepam 0.5 mg tablet 0.5 mg PO BID PRNQty: 10 0RF Rx Instructions: prn severe panic/ severe anxiety escitalopram oxalate [Lexapro] 20 mg Tablet 20 mg PO DAILY clonazepam 0.5 mg tablet 0.5 mg PO BID Qty: 20 0RF Medical Decision Making 38-year-old female known to this facility presenting with acute suicidality and OCD Secondary to the acuity of anxiety presentation, with self-induced vomiting, I 2 mg of IM Ativan was administered and patient showed significant improvement in her anxiety and was able to rest At time of reassessment, 1300 she is appearing anxious again 9 We will give 2 mg of p.o. Ativan and another dose of Seroquel, she received 50 mg of Seroquel upon arrival, will give additional 25 Will obtain EKG as patient will likely be here for an extended period of time waiting for placement, she is voluntary status after mental health assessment at this time, however should she wish to leave she will become involuntary status This was discussed with [facility] and pt is pending placement at this time signed out to MELODY PAYNE pending placement/voluntary status HPI General Date/Time Provider Initiated Documentation: 05/06/23 09:56 . HPI Narrative: This 38-year-old female with history of obsessive-compulsive disorder, suicidal ideation, anxiety, and depression presents with report of acute suicidality. States she was unable to take her medications this morning secondary to self- induced vomiting with nausea. States she has an active plan to take her life. Denies any attempts to harm self today. Denies any illicit drug use. Denies chance of . Denies any auditory or visual hallucinations. Related Data Home Medications Medication Instructions Recorded Confirmed escitalopram oxalate 20 mg tablet 20 mg PO DAILY 11/11/21 05/06/23 (Lexapro) trazodone 150 mg tablet 150 mg PO QHS 01/14/23 05/06/23 quetiapine 100 mg tablet 100 mg PO QHS 03/07/23 05/06/23 quetiapine 50 mg tablet 50 mg PO BID 03/07/23 05/06/23 clonazepam 0.5 mg tablet 0.5 mg PO BID #20 tabs 03/08/23 05/06/23 clonazepam 0.5 mg tablet 0.5 mg PO BID #20 tabs 03/29/23 05/06/23 clonazepam 0.5 mg tablet 0.5 mg PO BID PRN #10 tabs 05/05/23 05/06/23 Previous Rx's Medication Instructions Recorded clonazepam 0.5 mg tablet 0.5 mg PO BID #20 tabs 03/08/23 clonazepam 0.5 mg tablet 0.5 mg PO BID #20 tabs 03/29/23 clonazepam 0.5 mg tablet 0.5 mg PO BID PRN #10 tabs 05/05/23 Allergies Allergy/AdvReac Type Severity Reaction Status Date / Time cats Allergy Uncoded 05/06/23 10:26 General Stated Complaint: PsychEval JASKARAN: 2 PFSH All Active Problems (Updated 05/05/23 @ 12:01 by Bereket Shepard MD) Anxiety (Chronic) OCD (obsessive compulsive disorder) (Acute) MDD (major depressive disorder) (Chronic) Discharge planning issues (Acute) DVT prophylaxis (Acute) Suicidal ideation (Acute) Medical History (Updated 05/05/23 @ 12:01 by Bereket Shepard MD) Anxiety and depression Borderline personality disorder Menorrhagia with irregular cycle Panic anxiety syndrome Sudden-onset sensorineural hearing loss Tinnitus of left ear Family History (Updated 01/02/23 @ 15:27 by Massiel Hartmann) Mother No problems noted. Father , 52 Cancer Prostate Brother No problems noted. Social History (Updated 01/02/23 @ 15:26 by Massiel Hartmann) Smoking/Tobacco Use Status: Never Second Hand Exposure: No Smoking risk assessment performed?: Yes Alcohol Intake: former Drug use: Never Substance use type: does not use Caregiver/Support person: No Household members: other Details: Mother Housing: house Do you need help understanding health information?: Never Pets and animals: No Sexually active: No Do you think of yourself as: straight/heterosexual Current gender identity: female What is your relationship status?: never How often do you talk on the phone with friends or family?: decline to answer How often do you get together with friends or relatives?: decline to answer How often do you attend taoist or latter day services?: decline to answer Do you belong to any clubs or organized social groups?: no Panel score (0-1 are the most socially isolated patients): 0 What type of physical activity do you participate in: none Frequency: does not exercise Keerthi/Latter-Day: No preference Special keerthi needs: No Seatbelt use: always Drive intox or ride w/intox trencher driver: No Do you feel safe at home: Yes Do you feel safe in your relationship?: Yes Additional Social history: lives with mother DT mental health Exam Const General: cooperative Orientation: alert and oriented x3 Psych Appearance: disheveled Speech and Movement: restless Mood: labile mood Affect: labile affect and anxious affect Attitude: cooperative Thought Process: flight of ideas, perseverating and tangential Thought Content: compulsions, obsessions and suicidality Insight: limited Judgment: limited Course Vital Signs Vital signs: Vital Signs Temperature 36.7 C 05/06/23 10:03 Pulse 92 H 05/06/23 10:03 Respiratory Rate 18 05/06/23 10:03 Blood Pressure 125/68 05/06/23 10:03 Pulse Oximetry 98 05/06/23 10:03 Temperature 36.7 C 05/06/23 10:03 Temperature Source Skin 05/06/23 10:03 Pulse 92 H 05/06/23 10:03 Respiratory Rate 18 05/06/23 10:03 Respiratory Effort Normal 05/06/23 10:25 Blood Pressure 125/68 05/06/23 10:03 Blood Pressure Position Sitting 05/06/23 10:03 Pulse Oximetry 98 05/06/23 10:03 Oxygen Delivery Method Room Air 05/06/23 10:03 Oxygen Flow Rate 0 05/06/23 10:03 Pain Level 7 05/06/23 10:03 Lab/Test Results Lab/Test Results: Laboratory Tests Range/Units 05/06/23 05/06/23 05/06/23 11:02 11:02 11:22 WBC (4.4-10.8) 10^3/uL 5.66 RBC (3.93-5.22) 10^6/uL 4.08 Hgb (11.2-15.7) g/dL 10.4 L Hct (36.0-46.0) % 33.0 L MCV (80-95) fL 81 MCH (27.0-33.0) pg 25.5 L MCHC (32.0-36.0) % 31.5 L RDW (11.7-14.6) % 14.3 Plt Count (130-400) 10^3/uL 320 MPV (8.0-11.0) fL 9.2 Immature Gran % 0.4 Neutrophils % 65.6 Lymphocytes % 24.0 Monocytes % 8.0 Eosinophils % 0.9 Basophils % 1.1 Nucleated RBC % (0.0-0.3) % 0.0 Absolute Neutrophils (1.2-6.7) 10^3/uL 3.72 Absolute Lymphocytes (1.2-3.4) 10^3/uL 1.36 Absolute Monocytes (0.1-0.8) 10^3/uL 0.45 Absolute Eosinophils (0.0-0.7) 10^3/uL 0.05 Absolute Basophils (0.0-0.2) 10^3/uL 0.06 Sodium (136-145) mmol/L 137 Potassium (3.5-5.1) mmol/L 3.3 L Chloride (98-107) mmol/L 99 Carbon Dioxide (21.0-32.0) mmol/L 25.5 Anion Gap (3-11) mmol/L 12.5 H BUN (7-18) mg/dL 13 Creatinine (0.55-1.02) mg/dL 0.7 Est GFR (CKD-EPI 2020) (mL/min/1.73m2) 114.88 Glucose (74-106) mg/dL 92 Calcium (8.5-10.1) mg/dL 8.8 Total Bilirubin (0.2-1.0) mg/dL 0.6 AST (15-37) U/L 19 ALT (14-59) U/L 28 Alkaline Phosphatase (46-116) U/L 54 Total Protein (6.4-8.2) g/dL 7.5 Albumin (3.4-5.0) g/dL 4.2 TSH (0.36-3.74) uIU/mL 0.65 Urine Opiates Screen (Negative) Negative Urine Methadone Screen (Negative) Negative Ur Barbiturates Screen (Negative) Negative Ur Tricyclics Screen (Negative) Positive A Ur Amphetamines Screen (Negative) Negative U Benzodiazepines Scrn (Negative) Negative Urine Cocaine Screen (Negative) Negative Ur THC Screen (Negative) Negative Ethyl Alcohol (<10) mg/dL < 3.0 POC- Test(urine) Negative Sign Out Sign Out Data: Sign Out Comment: pending admission for OCD/SI, voluntary status Last updated by Annabella Dudley PA at 05/06/23 16:00 Sign Out Comment: Patient pending psychiatric bed placement. Patient involuntary condition and at time of signout is resting comfortably in bed. Last updated by Femi Enriquez NP at 05/06/23 23:17 Sign Out Comment: pt on voluntary psych bed search for ocd/si, no issues during shift Last updated by Matt Hayward MD at 05/07/23 00:08
--- NOTE | 2023-05-06 13:15 | RT.EKG_ITS ---
APPROVED REPORT Exam: Resting ECG Reason for Exam: medications Patient Location: E HR:92 bpm ECG Measurements Heart Rate 92 AXIS IN 127 P 64 QRSd 85 QRS 68 QT 358 T 26 QTc 442 Conclusion Sinus rhythm...normal P axis, V-rate 60- 99 Ventricular premature complex...V complex w/ short R-R interval sinus rhtyhm, normal axis, normal intervals, artfact in lateral leads
[2023-05-06] MEDS: LORazepam 1 MG TAB 2 MG PO (13:50)
[2023-05-06] MEDS: QUEtiapine 25 MG TAB PO (13:50)
[2023-05-06] MEDS: Ibuprofen 600 MG TAB PO (13:51)
--- NOTE | 2023-05-06 16:24 | PDOC.MHCN ---
Date of service: 05/06/23 Time of Service: 16:24 PHQ-9 Over the last 2 weeks, how often have you been bothered by any of the following problems? 1. Little interest or pleasure in doing things: nearly every day 2. Feeling down, depressed, or hopeless: nearly every day 3. Trouble falling or staying asleep, or sleeping too much: more than half the days 4. Feeling tired or having little energy: nearly every day 5. Poor appetite or overeating: nearly every day 6. Feeling bad about yourself - or that you are a failure or have let yourself and your family down: nearly every day 7. Trouble concentrating on things, such as reading the newspaper or watching television: nearly every day 8. Moving or speaking so slowly that other people could have noticed? - Or the opposite - being so fidgety or restless that you have been moving around a lot more than usual: nearly every day 9. Thoughts that you would be better off or of hurting yourself in some way: nearly every day Total score: 26 If you checked off any problems, how difficult have these problems made it for you to do your work, take care of things at home, or get along with other people?: very difficult PHQ-9 Results: Positive Source: Developed by Drs. Ramón Fuentes, Vaishali Mora, Edison Azevedo and colleagues, with an educational constanza from [employer]. Suicide Severity Rate CSSRS Have you wished you were or wished you could go to sleep and not wake up?: Yes Have you actually had any thoughts of killing yourself?: Yes CSSRS2 Have you been thinking about how you might do this?: No Have you had these thoughts and had some intention of acting on them?: No Have you started to work out or worked out the details of how to kill yourself? Do you intend to carry out this plan?: No CSSRS3 Have you ever done anything, started to do anything or prepared to do anything to end your life?: Yes CSSRS4 Was this within the past three months?: No Screening Score Total Score: 6 Screening: Positive Mental Health Emergency Note Release [facility] release signed:: Yes Reason for Visit The client returned to the ED today with persistent thoughts and verbalization of wanting to kill herself via hanging or if she had a gun to shoot herself. Although she reports not being hopeful for any change she is willing to accept treatment. This assessment is completed face to face. In the last 2 weeks has the pt presented for ES prior to today?: Yes, presented at (05.06.23) [facility] ED Client Information Client is: Adult Outpatient Well Housed: Yes Non Suicidal Self Injury Current: Yes, Scratches and pinches her skin, intentionally making herself vomit via two fingers down her throat. History: yes, Same as above. Safety Risk/Harm to Self or Others Current Ideation to Harm Self or Others: Yes to self. (Hanging or if she had a gun to shoot herself. ) Intent: no, has no intent. Plan: yes,has a plan. History of suicide attempt: yes,history of suicide attempt reported. Details of previous suicide attempt: Per the client's report she had set up a suicide about a year ago but aborted the plan because I couldn't do it. Risk: Does risk to harm exist?: yes. Access to means: No. Risk: High Risk Duty to warn indicated: No Asssessment/Mental Status Appearance: Unremarkable Attitude: Cooperative and Friendly Behavior: Agitated and Repetitive movements Speech: Soft Affect: Cogruent with mood Mood: Stressed, Depressed and Anxious Thought process: Loose associations and Tangential Hallucinations: No Delusions: No Attention: Unremarkable Perception: Not impaired Orientation: Fully orientated Memory: Intact Insight: Good Judgement: Poor Neurovegetative Symptoms Sleep: Decrease Appetitie: Decrease Interests: Decrease Energy: Decrease Libido: Not applicable Substance Use: Do you use nicotine?: No Have you used substances in the last 7 days?: No Additional Issues: Assaultive/Threatening Behavior: No Medical Concerns: No Client engaged in active self harm w/weapon: No Threatening to run away: No Child reported abuse/neglect: No Voluntarily presenting for services: Yes Domestic violence is a concern: No Extreme Psychosis or extreme behavior is present: Yes Impression Client is a 38 y/o single female who is currently living in [place], [place] with her mother Renee. Prior to the client moving in with her mother about 2 years ago she lived independently in [place], [place]. Client is currently unemployed due to her not being able to complete day to day living tasks and reports that she cannot leave the house to function in society. The client presents with symptoms most congruent to severe major depressive disorder mixed with generalized anxiety disorder as evidenced by constant repetitive movements, consistent crying and wailing, self report of poor appetite, lack of energy, and loss of interest in things that used to bring her alvaro. The client seems more open to sharing her past where in past assessments she has aggressively refused to share anything. This could be because of the Ativan she has received or that she is coming to a point where she knows she needs to share it is not clear at this time. She is concerned that another inpatient will not work as they get me stabilized and then let me go and it all starts over again. She called her mother to inquire if she should accept another inpatient stay. Her mother supports this. Plan/Disposition Recommended Disposition: Hospitalization (referral sent out. ) facilities contacted. Plan: The client will stay at [facility] for the night. She will be assessed daily until placement is secured. ES will seek placement and support the client in looking at other options as well for possible longer term treatment. Person reported agreement to plan: Yes Facilities contacted if Applicable [facility] Not accepted, Other [facility] Not accepted, Other [facility] Not accepted, Other, [facility] Not accepted, Other Reports/communication Outcome discussed with: ED/Personnel
--- NOTE | 2023-05-06 17:00 | PDOC.CMSAFE ---
Date of service: 05/06/23 Time of Service: 17:00 Care Management Safety Plan Status Status: Voluntary Reason for Wait Reason for Wait: Inpatient Admission Safety Plan Safety Plan: CHIEF COMPLAINT: Marylu presents in the ED for severe anxiety, depression and suicidal thoughts. She tells CM that her life is over and her hopes and dreams will never come true. When asked what she had hoped for and dreamed about, she refuses to elaborate. She shares she has been psychiatrically hospitalized in the past at both [facility] and [facility] and liked being on the LGBTQ unit at the [place]. She then states There is no hope for me. I don't need to be hospitalized. I need to . Marylu was evaluated by Allie of [facility] today and referrals were made to [facility], [facility], [facility], and [facility] for review. Marylu will remain at [facility] voluntarily until a placement can be secured for her. CM will continue to follow. VOLUNTARY FOR INPATIENT PSYCHIATRIC STABILIZATION.? Patient is appropriate in all interactions since arriving at [facility]; Pt has demonstrated appropriate coping and communication skills, has articulated his or her needs and concerns and is fully engaged during staff interactions. Safety plan has been established with patient, and care team, to adhere to patient goals, identify restrictions based on behavioral status, address nutrition, and determine allowed personal belongings, tools for hygiene and personal care. Determine level of activity including ambulation, level of supervision, visitors, and determine privileges based on behaviors and level of engagement by pt. SAFETY PLAN: 1. Will remain on suicide precautions. In Paper Clothes. 2. Will remain in room under direct supervision of one-on-one staff at all times provided by CPSO, SENIOR INVESTMENT MANAGER, SEROLOGY TECHNICIAN telephone recorder. 3. May have paper cups, plates, finger foods as well as a cardboard spoon with which to eat meals. 4. Follow [facility] Management of the Admitted Behavioral Health Patient policy. 5. Comfort bath system only, shower permitted with escort at RN discretion. 6. No personal belongings-soft items permitted at RN discretion. 7. Visitors: Limited to mother at RN discretion. 8. Activities: soft cart items, television if available and other activities approved per RN discretion. 9.? Bathroom privileges with escort in the ED, available in room without limitation on M/S. 10. Phone: contact limited to family at this time, via [employer] hospital phone at RN discretion. 11. Due to VOLUNTARY status, if patient wishes to leave [facility], staff will contact [facility] Crisis Screener ([phone]) and On-Call Feed In Worker ([phone]) as soon as possible. In the event of elopement, notify [facility] Police ([phone]). Patient is currently voluntarily at [facility] and seeking inpatient admission when a bed becomes available. [facility] Frontline Transportation Agent will continue seeking placement. Please contact the Undercover Cop Feed In Worker ([phone]) and [facility] Transportation Agent ([phone]) for any needed changes in the Safety Plan. Safety plan has been provided to interdepartmental care team.
[2023-05-06] MEDS: diazePAM 10 MG/2 ML SYR 5 MG IM (17:44)
--- NOTE | 2023-05-06 17:50 | NUR.NOTE ---
Nursing Note: While RN in room, pt stated to RN, I am having bad thoughts, I think my mom wants to kill me. RN asked pt if mother had stated that she wanted to harm her. Pt stated, No, but if I was her I would want to. RN reassured pt she was in a safe place. CPSO at pt's bedside. ED provider notified of conversation.
--- NOTE | 2023-05-06 18:35 | W.EDPROG ---
Date of service: 05/06/23 Time of Service: 16:00 Medical Decision Making Patient signed out to me from Annabella CROUCH. Please see her documentation for initial presentation and work-up. Patient signed out to me pending psychiatric bed availability for severe OCD and suicidal ideation. Patient is voluntary. at time of signout patient is resting calmly in bed with no complaints stated by staff. 5-staff internist office based only informed me that patient was starting to become anxious noted more agitated behavior. Went in and spoke with patient and she does have some fixations on previous friendships and does show signs of pretty significant anxiety and agitation. Discussed with patient p.o. medication versus IM injection. After discussion of this with patient she is stating she needs something that will work quicker than p.o. which given the level of agitation I do agree with. Patient was ordered 5 mg IM of diazepam. We will continue to monitor. 1844-patient continued to escalate and agitation and even started stating some delusional thoughts per nursing staff given that patient was stating that her mother wants to kill her. I went and assessed her and she was asking when her mother was going to get there and that she wanted her mother. She is very agitated, continuing OCD behaviors of trying to induce self vomiting or persistent rubbing of the hands. Attempted to de-escalate patient which was unsuccessful. We will attempt p.o. Zyprexa but will also consider IM if needed. 2049-patient received nightly meds and finally was able to calm down and start sleeping. Patient remained calm the remainder my shift I signed out to Dr. Hayward pending psychiatric bed availability. Sign Out Sign Out Data: Sign Out Comment: pending admission for OCD/SI, voluntary status Last updated by Annabella Dudley PA at 05/06/23 16:00 Sign Out Comment: Patient pending psychiatric bed placement. Patient involuntary condition and at time of signout is resting comfortably in bed. Last updated by Femi Enriquez NP at 05/06/23 23:17 Discharge Plan Discharge Details Chief Complaint: PsychEval Primary Care Provider: Juana Saavedra ED Provider: Femi Enriquez Home Meds and New Rx's Prescriptions: No Action quetiapine 100 mg tablet 100 mg PO QHS quetiapine 50 mg tablet 50 mg PO BID clonazepam 0.5 mg tablet 0.5 mg PO BID Qty: 20 0RF Patient Comments: does not take anymore trazodone 150 mg tablet 150 mg PO QHS Patient Comments: unable to get refill clonazepam 0.5 mg tablet 0.5 mg PO BID PRNQty: 10 0RF Rx Instructions: prn severe panic/ severe anxiety escitalopram oxalate [Lexapro] 20 mg Tablet 20 mg PO DAILY clonazepam 0.5 mg tablet 0.5 mg PO BID Qty: 20 0RF
[2023-05-06] MEDS: OLANZapine 10 MG TAB PO (19:24)
[2023-05-06] MEDS: QUEtiapine 100 MG TAB (20:32)
[2023-05-06] MEDS: traZODone 50 MG TAB (20:32)
[2023-05-06] MEDS: clonazePAM 0.5 MG TAB PO (20:32)
--- NOTE | 2023-05-07 00:06 | W.EDPROG ---
Date of service: 05/07/23 Time of Service: 00:07 Medical Decision Making pt signed out to me pending voluntary psych placement, currently sleeping in no distress, will continue to observe until placement is found Sign Out Sign Out Data: Sign Out Comment: pending MH admission for OCD/SI, voluntary status Last updated by Annabella Dudley PA at 05/06/23 16:00 Sign Out Comment: Patient pending psychiatric bed placement. Patient involuntary condition and at time of signout is resting comfortably in bed. Last updated by Femi Enriquez NP at 05/06/23 23:17 Discharge Plan Discharge Details Chief Complaint: PsychEval Primary Care Provider: Juana Saavedra ED Provider: Matt Hayward [place] Meds and New Rx's Prescriptions: No Action quetiapine 100 mg tablet 100 mg PO QHS quetiapine 50 mg tablet 50 mg PO BID clonazepam 0.5 mg tablet 0.5 mg PO BID Qty: 20 0RF Patient Comments: does not take anymore trazodone 150 mg tablet 150 mg PO QHS Patient Comments: unable to get refill clonazepam 0.5 mg tablet 0.5 mg PO BID PRNQty: 10 0RF Rx Instructions: prn severe panic/ severe anxiety escitalopram oxalate [Lexapro] 20 mg Tablet 20 mg PO DAILY clonazepam 0.5 mg tablet 0.5 mg PO BID Qty: 20 0RF
--- NOTE | 2023-05-07 07:43 | ED.PROG_ITS ---
Date of service: 05/07/23 Time of Service: 07:44 Medical Decision Making I received signout patient in the emergency department in setting of mental health crisis. She is voluntary. No acute issues last shift. We will update documentation as clinically warranted and signed patient out to the oncoming evening attending. 10:23 AM Patient became increasingly agitated for which I ordered her 25 mg of oral hydroxyzine. I spoke to Bria Natarajan NP from [facility] who graciously agreed to accept the patient for hospitalization. 1:10 PM I signed transfer paperwork on this patient who is going to be transferred by [facility] to [facility]. Sign Out Sign Out Data: Sign Out Comment: pending MH admission for OCD/SI, voluntary status Last updated by Annabella Dudley PA at 05/06/23 16:00 Sign Out Comment: Patient pending psychiatric bed placement. Patient involuntary condition and at time of signout is resting comfortably in bed. Last updated by Femi Enriquez NP at 05/06/23 23:17 Sign Out Comment: pt on voluntary psych bed search for ocd/si, no issues during shift Last updated by Matt Hayward MD at 05/07/23 00:08 Discharge Plan Discharge Details Chief Complaint: PsychEval Primary Care Provider: Juana Saavedra ED Provider: Anthony Vaughn [place] Meds and New Rx's Prescriptions: No Action quetiapine 100 mg tablet 100 mg PO QHS quetiapine 50 mg tablet 50 mg PO BID clonazepam 0.5 mg tablet 0.5 mg PO BID Qty: 20 0RF Patient Comments: does not take anymore trazodone 150 mg tablet 150 mg PO QHS Patient Comments: unable to get refill clonazepam 0.5 mg tablet 0.5 mg PO BID PRNQty: 10 0RF Rx Instructions: prn severe panic/ severe anxiety escitalopram oxalate [Lexapro] 20 mg Tablet 20 mg PO DAILY clonazepam 0.5 mg tablet 0.5 mg PO BID Qty: 20 0RF Discharge Data Discharge Date/Time-TO BE ENTERED AT DEPARTURE: 05/07/23 15:04
--- NOTE | 2023-05-07 09:35 | CMSP_ITS ---
Date of service: 05/07/23 Time of Service: 09:36 Care Management Safety Plan Status Status: Voluntary Reason for Wait Reason for Wait: Inpatient Admission Safety Plan Safety Plan: Marylu presents in the ED for severe anxiety, depression and suicidal thoughts.? She tells CM that her life is over and her hopes and dreams will never come true.? When asked what she had hoped for and dreamed about, she refuses to elaborate.? She shares she has been psychiatrically hospitalized in the past at both [facility] and [facility] and liked being on the LGBTQ unit at the [place].? She then states There is no hope for me.? I don't need to be hospitalized.? I need to .? Referrals pending at [facility], [facility], [facility], and [facility].? Marylu will remain at [facility] voluntarily until a placement can be secured for her.? CM will continue to follow. ? VOLUNTARY FOR INPATIENT PSYCHIATRIC STABILIZATION.? Patient is appropriate in all interactions since arriving at [facility]; Pt has demonstrated appropriate coping and communication skills, has articulated his or her needs and concerns and is fully engaged during staff interactions. Safety plan has been established with patient, and care team, to adhere to patient goals, identify restrictions based on behavioral status, address nutrition, and determine allowed personal belongings, tools for hygiene and personal care. Determine level of activity including ambulation, level of supervision, visitors, and determine privileges based on behaviors and level of engagement by pt. SAFETY PLAN: 1. Will remain on suicide precautions. In Paper Clothes. 2. Will remain in room under direct supervision of one-on-one staff at all times provided by CPSO, EVENT SALES MANAGER, STATUE CARVER senior clerk. 3. May have paper cups, plates, finger foods as well as a cardboard spoon with which to eat meals. 4. Follow [facility] Management of the Admitted Behavioral Health Patient policy. 5. Comfort bath system only, shower permitted with escort at RN discretion. 6. No personal belongings-soft items permitted at RN discretion. 7. Visitors: Limited to mother at RN discretion. 8. Activities: soft cart items, television if available and other activities approved per RN discretion. 9.? Bathroom privileges with escort in the ED, available in room without limitation on M/S. 10. Phone: contact limited to family at this time, via [email or web address] hospital phone at RN discretion. 11. Due to VOLUNTARY status, if patient wishes to leave [facility], staff will contact [facility] Crisis Screener ([phone]) and On-Call Coal Trimmer Machine Operator ([phone]) as soon as possible. In the event of elopement, notify [facility] Police ([phone]). Patient is currently voluntarily at [facility] and seeking inpatient admission when a bed becomes available. [facility] Frontline Bioinformatics Computer Scientist will continue seeking placement. Please contact the Courtesy Booth Cashier Coal Trimmer Machine Operator ([phone]) and [facility] Bioinformatics Computer Scientist ([phone]) for any needed changes in the Safety Plan. Safety plan has been provided to interdepartmental care team.
[2023-05-07] MEDS: clonazePAM 0.5 MG TAB PO (09:40)
[2023-05-07] MEDS: Escitalopram 20 MG TAB PO (09:41)
[2023-05-07] MEDS: hydrOXYzine HCL 25 MG TAB PO (10:27)
--- NOTE | 2023-05-07 11:06 | NUR.NOTE ---
Nursing Note: Nurse to Nurse report given to Erica nino.
[2023-05-07] MEDS: LORazepam 1 MG TAB PO (15:03)
--- NOTE | 2023-05-07 17:35 | NUR.NOTE ---
Elie called asking where pts sneakers are. Odessa Duque stated that mom took them Nursing Note:
== END 2023-05-07 15:04 ==
PROVIDERS: Physician Assistant; Emergency Provider Emergency Medicine; PCP Nurse Practitioner Family
DX: R45.851 Suicidal ideations (principal); F41.9 Anxiety disorder, unspecified; F42.9 Obsessive-compulsive disorder, unspecified; I49.3 Ventricular premature depolarization
CPT/HCPCS: 80053; 80307; 81025; 87040; 93005; 99285; 80320; 84443; 85025; 93010; J2060; J3360

== ENCOUNTER 2023-06-25 10:59 | Emergency (ER) | payer MEDICAID, SELFPAY ==
[2023-06-25 11:02] VITALS: BP 125/108; PULSE 97; RESP 20; TEMP 36.4; O2SAT 97
--- NOTE | 2023-06-25 11:07 | ED.GENADUL_ITS ---
Discharge Plan Discharge Details Chief Complaint: PsychEval Clinical Impression: Suicidal ideation, Panic attack Primary Care Provider: Juana Saavedra ED Provider: Edouard Park Home Meds and New Rx's Prescriptions: No Action quetiapine 100 mg tablet 100 mg PO QHS quetiapine 50 mg tablet 50 mg PO BID clonazepam 0.5 mg tablet 0.5 mg PO BID Qty: 20 0RF Patient Comments: does not take anymore trazodone 150 mg tablet 150 mg PO QHS Patient Comments: unable to get refill clonazepam 0.5 mg tablet 0.5 mg PO BID PRNQty: 10 0RF Rx Instructions: prn severe panic/ severe anxiety escitalopram oxalate [Lexapro] 20 mg Tablet 20 mg PO DAILY clonazepam 0.5 mg tablet 0.5 mg PO BID Qty: 20 0RF Medical Decision Making 38-year-old female with a past medical history of OCD, depressive disorder, previous suicidal ideations and suicidal attempts, presents today for evaluation of depression, suicidal ideations, vomiting. Patient states that for the last few days she has been having panic attacks, she has been ruminating on trauma from her past, she has been having episodes of vomiting because of this panic. She admits to small speckles of blood noted in her vomit. She denies any abdominal pain and states that the nausea and vomiting is simply from when she develops these panic attacks. She has been crying. She has been thinking of killing herself and she would do this by hanging herself. She did contact mental health and they recommend she come in for evaluation. She denies taking any drugs or any extra medications. No other complaints at this time. Physical exam demonstrates a notably distraught individual. She is actively cry ing and wailing. No abdominal tenderness. Dry mucous membranes are noted. We will give antiemetics, Protonix, check for electrolyte abnormalities and medically clear. We will place her on one-to-one observation, monitor closely and have mental health, after she has been medically clear. 2:30 PM Laboratory work-up has returned normal. Hemoglobin at baseline. Renal function normal. Vomiting is stopped. Anxiety notably diminished now after Valium. Urinalysis does show 3-5 WBCs, rare epithelials, rare bacteria, and small leuk esterase. Will administer single treatment of fosfomycin for potential very mild urinary tract infection. Patient is otherwise medically cleared. Patient was seen and assessed by Allie from [facility], they have elected to transition to care bed. Here bed potentially available on Sunday. Patient will stay here in the emergency department until then. I will place orders for her scheduled medications. Patient will be signed out to my colleague Dr. Hayward for continued observation. HPI General Date/Time Provider Initiated Documentation: 06/25/23 11:01 . HPI Narrative: 38-year-old female with a past medical history of OCD, depressive disorder, previous suicidal ideations and suicidal attempts, presents today for evaluation of depression, suicidal ideations, vomiting. Patient states that for the last few days she has been having panic attacks, she has been ruminating on trauma from her past, she has been having episodes of vomiting because of this panic. She admits to small speckles of blood noted in her vomit. She denies any abdominal pain and states that the nausea and vomiting is simply from when she develops these panic attacks. She has been crying. She has been thinking of killing herself and she would do this by hanging herself. She did contact mental health and they recommend she come in for evaluation. She denies taking any drugs or any extra medications. No other complaints at this time. Related Data Home Medications Medication Instructions Recorded Confirmed escitalopram oxalate 20 mg tablet 20 mg PO DAILY 11/11/21 06/25/23 (Lexapro) trazodone 150 mg tablet 150 mg PO QHS 01/14/23 06/25/23 quetiapine 100 mg tablet 100 mg PO QHS 03/07/23 06/25/23 quetiapine 50 mg tablet 50 mg PO BID 03/07/23 06/25/23 clonazepam 0.5 mg tablet 0.5 mg PO BID #20 tabs 03/08/23 06/25/23 clonazepam 0.5 mg tablet 0.5 mg PO BID #20 tabs 03/29/23 06/25/23 clonazepam 0.5 mg tablet 0.5 mg PO BID PRN #10 tabs 05/05/23 06/25/23 Previous Rx's Medication Instructions Recorded clonazepam 0.5 mg tablet 0.5 mg PO BID #20 tabs 03/08/23 clonazepam 0.5 mg tablet 0.5 mg PO BID #20 tabs 03/29/23 clonazepam 0.5 mg tablet 0.5 mg PO BID PRN #10 tabs 05/05/23 Allergies Allergy/AdvReac Type Severity Reaction Status Date / Time cats Allergy Uncoded 06/25/23 11:05 General Stated Complaint: PsychEval JASKARAN: 2 Review of Systems All systems reviewed & are unremarkable except as noted in HPI and below PFSH All Active Problems (Updated 06/25/23 @ 14:31 by Edouard Park DO) Panic attack (Acute) OCD (obsessive compulsive disorder) (Acute) MDD (major depressive disorder) (Chronic) Discharge planning issues (Acute) DVT prophylaxis (Acute) Suicidal ideation (Acute) Medical History Anxiety and depression Borderline personality disorder Menorrhagia with irregular cycle Panic anxiety syndrome Sudden-onset sensorineural hearing loss Tinnitus of left ear Family History Mother No problems noted. Father , 52 Cancer Prostate Brother No problems noted. Social History Smoking/Tobacco Use Status: Never Second Hand Exposure: No Smoking risk assessment performed?: Yes Alcohol Intake: former Drug use: Never Substance use type: does not use Caregiver/Support person: No Household members: other Details: Mother Housing: house Do you need help understanding health information?: Never Pets and animals: No Sexually active: No Do you think of yourself as: straight/heterosexual Current gender identity: female What is your relationship status?: never How often do you talk on the phone with friends or family?: decline to answer How often do you get together with friends or relatives?: decline to answer How often do you attend episcopal or sabianist services?: decline to answer Do you belong to any clubs or organized social groups?: no Panel score (0-1 are the most socially isolated patients): 0 What type of physical activity do you participate in: none Frequency: does not exercise Keerthi/Caodaism: No preference Special keerthi needs: No Seatbelt use: always Drive intox or ride w/intox operator and truck driver: No Do you feel safe at home: Yes Do you feel safe in your relationship?: Yes Additional Social history: lives with mother DT mental health Exam Narrative Exam Narrative: 1.Const: Well-nourished, Well-developed, appearing stated age 2.Eyes: PERRL, no conjunctival injection, and symmetrical lids. 3.ENT: Atraumatic external nose and ears. Dry MM. Neck: Symmetric, trachea midline, No thyromegaly. 4.CVS: +S1/S2, No murmurs or gallops. Peripheral pulses 2+ and equal in all extremities. Brisk capillary refill in all extremities. 5.RESP: Unlabored respiratory effort. Clear to auscultation bilaterally. No wheezes rales or rhonchi 6.GI: Soft, Nontender/Nondistended, No hepatosplenomegaly. No guarding or rebound. No pain at McBurney's point. Negative Santoro sign. 7.MSK: Normocephalic/Atraumatic, Extremities w/o deformity or ttp No cyanosis or clubbing, Normal movement of all extremities 8.Skin: Warm, Dry. No rashes or lesions. 9.Neuro: licensed bondsman II-XII grossly intact. Sensation grossly intact, no focal neurologic deficits. 10.Psych: (AAO) x3. Patient is crying and wailing. Course Vital Signs Vital signs: Vital Signs Temperature 36.4 C L 06/25/23 11:02 Pulse 97 H 06/25/23 11:02 Respiratory Rate 20 06/25/23 11:02 Blood Pressure 125/108 H 06/25/23 11:02 Pulse Oximetry 97 06/25/23 11:02 Temperature 36.4 C L 06/25/23 11:02 Temperature Source Temporal Artery Scan 06/25/23 11:02 Pulse 97 H 06/25/23 11:02 Respiratory Rate 20 06/25/23 11:02 Respiratory Effort Normal, Non-Labored 06/25/23 11:06 Blood Pressure 125/108 H 06/25/23 11:02 Blood Pressure Position Sitting 06/25/23 11:02 Pulse Oximetry 97 06/25/23 11:02 Oxygen Delivery Method Room Air 06/25/23 11:02 Oxygen Flow Rate 0 06/25/23 11:02
[2023-06-25 11:31] LABS: Bilirubin Negative (Negative); Blood Trace-intact (Negative); Clarity Clear (Clear); Glucose Negative (Negative); Ketones Negative (Negative); Leukocyte Esterase Small (Negative); Nitrite Negative (Negative); Specific Gravity 1.015 (1.005-1.025); Urobilinogen 0.2 mg/dL (Up to 0.2)
[2023-06-25] MEDS: Normal Saline 1,000 ML 1000 ML IV (11:34)
[2023-06-25] MEDS: Pantoprazole 40 MG VIAL IVP (11:34)
[2023-06-25] MEDS: Ondansetron 4 MG/2 ML VIAL IVP (11:34)
[2023-06-25] MEDS: diazePAM 10 MG/2 ML SYR 5 MG IVP ×2 (11:35→14:27)
[2023-06-25 11:38] LABS: Bacteria Rare HPF (Negative); C & S Indicated? No; Casts Negative LPF (Negative); Crystals Negative HPF (Negative); Epithelial Cells Rare HPF (Negative); Mucus Negative (Negative); Other Cells Negative (Negative); RBC 0-2 HPF (0-2)
[2023-06-25 11:42] LABS: *AMPHETAMINES SCREEN URINE Negative (Negative); *BARBITURATES SCREEN URINE Negative (Negative); *BENZODIAZEPINES SCREEN URINE Negative (Negative); Cannabinoids THC Negative (Negative); Cocaine Screen,Urine Negative (Negative); METHADONE URINE SCREEN Negative (Negative); OPIATES URINE SCREEN Negative (Negative)
--- NOTE | 2023-06-25 11:42 | NUR.NOTE ---
Nursing Note: provider stated that pt informed MD of vomiting blood. type and screen and protonix ordered/ given.
[2023-06-25 11:43] LABS: Tricyclic Antidepressants Negative (Negative)
[2023-06-25 11:44] LABS: Abs Immature Grans 0.01 10^3/uL (0.0-0.06); Absolute Basophil Count 0.09 10^3/uL (0.0-0.2); Absolute Eosinophil Count 0.06 10^3/uL (0.0-0.7); Absolute Lymphocyte Count 1.83 10^3/uL (1.2-3.4); Absolute Monocyte Count 0.49 10^3/uL (0.1-0.8); Absolute Neutrophil Count 3.61 10^3/uL (1.2-6.7); Basophils % 1.5; HCT 34.1 % (36.0-46.0); Immature Grans % 0.2; MCH 24.4 pg (27.0-33.0); MCHC 32.3 % (32.0-36.0); MCV 76 fL (80-95); MPV 9.4 fL (8.0-11.0); Neutrophils % 59.3; Platelet Count 331 10^3/uL (130-400); RDW 14.7 % (11.7-14.6); RDW-SD 40.5 fL; WBC 6.09 10^3/uL (4.4-10.8)
[2023-06-25 12:13] LABS: Acetaminophen < 2 ug/mL (10-30); Salicylate < 2.8 mg/dL (<2.8)
[2023-06-25 12:25] LABS: ALT 23 U/L (14-59); AST 30 U/L (15-37); Albumin 4.5 g/dL (3.4-5.0); Alkaline Phosphatase 50 U/L (46-116); BUN 12 mg/dL (7-18); Bilirubin, Total 0.5 mg/dL (0.2-1.0); CREATININE 0.7 mg/dL (0.55-1.02); Calcium 9.5 mg/dL (8.5-10.1); Chloride 101 mmol/L (98-107); Estimated GFR 114.88 (mL/min/1.73m2); Glucose 93 mg/dL (74-106); Lipase 42 U/L (16-77); Potassium 3.7 mmol/L (3.5-5.1); Sodium 136 mmol/L (136-145); TSH (W/Ref FT4) 0.84 uIU/mL (0.36-3.74); Total Protein 8.2 g/dL (6.4-8.2)
[2023-06-25 12:26] LABS: ETHANOL BLOOD < 3.0 mg/dL (<10)
[2023-06-25 14:14] LABS: Source Nasal/Nares
[2023-06-25 14:46] LABS: COVID-19 PCR Negative (Negative)
[2023-06-25] MEDS: Fosfomycin Tromethamine 3 GM PACKET PO (14:52)
--- NOTE | 2023-06-25 15:05 | ED.PROG_ITS ---
Date of service: 06/25/23 Time of Service: 15:05 Medical Decision Making pt pending likely placement at a care bed for anxiety/panic attacks, no new acute issues, calm and cooperative, will continue to observe until placement/safe dispo established Sign Out Sign Out Data: Sign Out Comment: Patient here for panic attacks/anxiety/depression/suicidal ideations. Here voluntarily. Pending transition to care bed expectantly on Sunday. Patient has been medically cleared. Home medications have been ordered. Last updated by Edouard Park DO at 06/25/23 14:50 Discharge Plan Discharge Details Chief Complaint: PsychEval Clinical Impression: Suicidal ideation, Panic attack Primary Care Provider: Juana Saavedra ED Provider: Matt Hayward [employer] Meds and New Rx's Prescriptions: No Action quetiapine 100 mg tablet 150 mg PO QHS quetiapine 50 mg tablet 50 mg PO QAM clonazepam 0.5 mg tablet 0.5 mg PO BID Qty: 20 0RF Patient Comments: does not take anymore trazodone 150 mg tablet 150 mg PO QHS Patient Comments: unable to get refill clonazepam 0.5 mg tablet 0.5 mg PO BID PRNQty: 10 0RF Rx Instructions: prn severe panic/ severe anxiety escitalopram oxalate [Lexapro] 20 mg Tablet 20 mg PO DAILY clonazepam 0.5 mg tablet 0.5 mg PO BID Qty: 20 0RF
[2023-06-25] MEDS: LORazepam 2 MG/ML VIAL IVP (16:14)
--- NOTE | 2023-06-25 19:51 | NUR.NOTE ---
Nursing Note: Pts mother called to check in and see how her daughter is doing. Informed mother that patient is currently sleeping. Mom will call and/or stop by tomorrow.
[2023-06-26] MEDS: QUEtiapine 100 MG TAB PO (03:10)
[2023-06-26] MEDS: traZODone 50 MG TAB 150 MG PO (03:11)
--- NOTE | 2023-06-26 03:12 | NUR.NOTE ---
Nursing Note:Pt had been sleeping since this RN assumed care at 1900. Pt had medications due at 2030 and 2200 which were not given due to pt sleeping. Pt woke on her own at 0300 to use bathroom. Pt became increasingly anxious and requested her night time meds. This RN discussed with MD who advised to administer night meds which were due at 2200. Meds were given. Pt resting quietly. CPSO at bedside.
[2023-06-26 08:00] VITALS: BP 96/66; PULSE 99; RESP 14; TEMP 36.9; O2SAT 98
[2023-06-26] MEDS: Escitalopram 20 MG TAB PO (08:04)
[2023-06-26] MEDS: QUEtiapine 50 MG TAB PO ×2 (08:04→19:58)
[2023-06-26] MEDS: clonazePAM 0.5 MG TAB PO ×2 (08:04→19:58)
--- NOTE | 2023-06-26 08:13 | PDOC.MHCN ---
Date of service: 06/25/23 Time of Service: 08:13 PHQ-9 Over the last 2 weeks, how often have you been bothered by any of the following problems? 1. Little interest or pleasure in doing things: nearly every day 2. Feeling down, depressed, or hopeless: nearly every day 3. Trouble falling or staying asleep, or sleeping too much: nearly every day 4. Feeling tired or having little energy: nearly every day 5. Poor appetite or overeating: nearly every day 6. Feeling bad about yourself - or that you are a failure or have let yourself and your family down: nearly every day 7. Trouble concentrating on things, such as reading the newspaper or watching television: nearly every day 8. Moving or speaking so slowly that other people could have noticed? - Or the opposite - being so fidgety or restless that you have been moving around a lot more than usual: nearly every day 9. Thoughts that you would be better off or of hurting yourself in some way: nearly every day Total score: 27 If you checked off any problems, how difficult have these problems made it for you to do your work, take care of things at home, or get along with other people?: extremely difficult PHQ-9 Results: Positive Source: Developed by Drs. Ramón Fuentes, Vaishali Mora, Edison Azevedo and colleagues, with an educational constanza from [employer]. Suicide Severity Rate CSSRS Have you wished you were or wished you could go to sleep and not wake up?: Yes Have you actually had any thoughts of killing yourself?: Yes CSSRS2 Have you been thinking about how you might do this?: Yes Have you had these thoughts and had some intention of acting on them?: Yes Have you started to work out or worked out the details of how to kill yourself? Do you intend to carry out this plan?: Yes CSSRS3 Have you ever done anything, started to do anything or prepared to do anything to end your life?: Yes CSSRS4 Was this within the past three months?: No Screening Score Total Score: 6 Screening: Positive Mental Health Emergency Note Release [facility] release signed:: Yes Reason for Visit The client arrived to the ED after speaking with this clinician earlier today. We had discussed this as an option and the client was supposed to call however, felt she needed to just go to the ED. In the last 2 weeks has the pt presented for ES prior to today?: Unknown Client Information Client is: Adult Outpatient Well Housed: Yes Non Suicidal Self Injury Current: Yes, The client reported that she makes herself vomit every morning as a result of her symptoms relating to her anxiety. History: yes, The client has a history of scratching her self. Safety Risk/Harm to Self or Others Current Ideation to Harm Self or Others: Yes to self. (Same as above as well as to hang herself.) Intent: yes, has intent. Plan: yes,has a plan. History of suicide attempt: yes,history of suicide attempt reported. Details of previous suicide attempt: The client attempted to hang herself in the past. Risk: Does risk to harm exist?: yes. Access to means: Yes. Types of Means: Other weapons. Details: The client has access till kitchen knives at home. . Counseling provided: Yes Risk: Moderate Risk Duty to warn indicated: No Asssessment/Mental Status Appearance: Well groomed Attitude: Cooperative Behavior: Other (Sitting up with her knees to her chest, face away from this clinician and crying continuously. ) Speech: Soft Affect: Cogruent with mood Mood: Depressed and Anxious Thought process: Unremarkable Hallucinations: No Delusions: No Attention: Unremarkable Perception: Not impaired Orientation: Fully orientated Memory: Intact Insight: Good Judgement: Good Neurovegetative Symptoms Sleep: Decrease Appetitie: No change Interests: Decrease Energy: Decrease Libido: Not applicable Substance Use: Do you use nicotine?: No Have you used substances in the last 7 days?: No Additional Issues: Assaultive/Threatening Behavior: No Medical Concerns: No Client engaged in active self harm w/weapon: No Threatening to run away: No Child reported abuse/neglect: No Voluntarily presenting for services: Yes Domestic violence is a concern: No Extreme Psychosis or extreme behavior is present: Yes Impression Client is a 38 y/o single female who is currently living in [place], [place] with her mother Renee. Prior to the client moving in with her mother about 2 years ago she lived independently in [place], [place]. Client is currently unemployed due to her not being able to complete day to day living tasks and reports that she cannot leave the house to function in society. She presents to the ED following a phone conversation with this clinician with complaints that she continues to not feel well and is having daily SI. She has started treatment with [facility] for counseling and psychiatry and has had 2 recent hospitalizations however, she is not feeling any relief from her symptoms. Resources Reosurces reviewed and given:: Crisis Bed Plan/Disposition Recommended Disposition: Crisis bed, facility contacted. Status of Crisis Bed acceptance: Pending review. Plan: The client reported that hospitalizations have not been helpful for her so we discussed a referral to the CARE Bed during our phone conversation earlier and the client was open to that as an option. That referral was already submitted for review. All medical stuff will be submitted as well. Person reported agreement to plan: Yes Reports/communication Outcome discussed with: ED/Personnel
[2023-06-26] MEDS: diazePAM 10 MG/2 ML SYR 5 MG IVP (08:22)
--- NOTE | 2023-06-26 11:26 | PDOC.CMSAFE ---
Date of service: 06/26/23 Time of Service: 11:26 Care Management Safety Plan Status Status: Voluntary Reason for Wait Reason for Wait: Community Placement ([facility] Care Bed) Safety Plan Safety Plan: CHIEF COMPLAINT: Marylu is a 38 year old female who presents in the ED due to worsening anxiety, panic attacks and suicidal ideation. She is sitting on the bed when CM comes to meet with her. She shares she has OCD and says her anxiety is currently quite severe and begins to hyperventilate. We spend a few minutes doing deep breathing exercises and Marylu is able to regain her composure. She shares a little bit about her life and how she wishes it could be different. Marylu has been psychiatrically hospitalized several times in the past and she states none of the hospitalizations have been helpful. She was assessed by Allie of [facility] this afternoon and a referral was made to the [facility] Care Bed. Plan is for Marylu to remain at [facility] until the Care Bed can offer her a bed. CM will continue to follow. VOLUNTARY FOR INPATIENT PSYCHIATRIC STABILIZATION.? Patient is appropriate in all interactions since arriving at [facility]; Pt has demonstrated appropriate coping and communication skills, has articulated his or her needs and concerns and is fully engaged during staff interactions. Safety plan has been established with patient, and care team, to adhere to patient goals, identify restrictions based on behavioral status, address nutrition, and determine allowed personal belongings, tools for hygiene and personal care. Determine level of activity including ambulation, level of supervision, visitors, and determine privileges based on behaviors and level of engagement by pt. SAFETY PLAN: 1. Will remain on suicide precautions. In Paper Clothes 2. Will remain in room under direct supervision of one-on-one staff at all times provided by CPSO, ANIMAL SCIENTIST, ATMOSPHERIC PHYSICIST combine operator. 3. May have paper cups, plates, finger foods as well as a cardboard spoon with which to eat meals. 4. Follow [facility] Management of the Admitted Behavioral Health Patient policy. 5. Comfort bath system only, shower permitted at RN discretion. 6. No personal belongings-soft items permitted at RN discretion. 7. Visitors: Per [facility] Visitor Policy and at RN discretion. 8. Activities: soft cart items, television and other activities at RN discretion. 9.? Bathroom privileges with escort in the ED, available in room without limitation on Zone B. 10. Phone: contact limited to family at this time, via [facility] hospital phone at RN discretion. 11. Due to VOLUNTARY status, if patient wishes to leave [facility], staff will contact [facility] Crisis Screener ([phone]) and On-Call [employer] Service Technician ([phone]) as soon as possible. In the event of elopement, notify [facility] Police ([phone]). Patient is currently voluntarily at [facility] and seeking inpatient admission when a bed becomes available. [facility] Frontline Carrier Washer will continue seeking placement. Please contact the Supervisor [employer] Service Technician ([phone]) and [facility] Carrier Washer ([phone]) for any needed changes in the Safety Plan. Safety plan has been provided to interdepartmental care team.
--- NOTE | 2023-06-26 15:44 | PDOC.MHPN2 ---
Date of service: 06/26/23 Time of Service: 15:44 Mental Health Emergency Note Release [facility] release signed:: Yes Reason for Visit The client arrived to the ED after speaking with this clinician via phone on 06.25.23. We had discussed this as an option and the client was supposed to call however, felt she needed to just go to the ED. In the last 2 weeks has the pt presented for ES prior to today?: Yes, presented at [facility] ED Impression Client is a 38 y/o single female who is currently living in [place], [place] with her mother Renee. Prior to the client moving in with her mother about 2 years ago she lived independently in [place], [place]. Client is currently unemployed due to her not being able to complete day to day living tasks and reports that she cannot leave the house to function in society. On 06.26.23 the client presented lying in her bed with her head covered. She reported no changes in her symptoms from 06.25.23. She did report that she did not vomit her breakfast this am and that is new and positive. She is waiting and still interested in the CARE Bed. Resources Reosurces reviewed and given:: Crisis Bed Plan/Disposition Recommended Disposition: Crisis bed, facility contacted. Status of Crisis Bed acceptance: Pending review. Plan: The client is planning to be accepted to the [facility] CARE Bed on 06.27.23. Referrals have been sent. Person reported agreement to plan: Yes Reports/communication Outcome discussed with: ED/Personnel
[2023-06-26] MEDS: Normal Saline Flush 10 ML SYR ×2 (15:58→16:08)
--- NOTE | 2023-06-26 17:13 | W.EDPROG ---
Date of service: 06/26/23 Time of Service: 17:14 Medical Decision Making I received signout on this 38-year-old female with a history of PTSD and OCD. She is suicidal and in the emergency department voluntarily. She has been receiving her home medications. We will update documentation as clinically warranted and sign patient out to the oncoming overnight provider. 10:45 PM No active behavioral issues last shift. Patient signed out to Dr. Hayward. Sign Out Sign Out Data: Sign Out Comment: Patient here for panic attacks/anxiety/depression/suicidal ideations. Here voluntarily. Pending transition to care bed expectantly on Sunday. Patient has been medically cleared. Home medications have been ordered. Last updated by Edouard Park DO at 06/25/23 14:50 Sign Out Comment: panic attacks/anxiety/depression voluntary, tentative plan for care bed on Sunday Last updated by Matt Hayward MD at 06/25/23 18:14 Sign Out Comment: depression, anxiety, awaiting care bed placement Last updated by Bereket Shepard MD at 06/26/23 07:40 Sign Out Comment: OCD, anxiety, awaiting care bed placement on Sunday. Demerol and Valium given voluntarily today. Last updated by Edouard Park DO at 06/26/23 16:40 Discharge Plan Discharge Details Chief Complaint: PsychEval Clinical Impression: Suicidal ideation, Panic attack Primary Care Provider: Juana Saavedra ED Provider: Anthony Vaughn Home Meds and New Rx's Prescriptions: No Action quetiapine 100 mg tablet 150 mg PO QHS quetiapine 50 mg tablet 50 mg PO QAM clonazepam 0.5 mg tablet 0.5 mg PO BID Qty: 20 0RF Patient Comments: does not take anymore trazodone 150 mg tablet 150 mg PO QHS Patient Comments: unable to get refill clonazepam 0.5 mg tablet 0.5 mg PO BID PRNQty: 10 0RF Rx Instructions: prn severe panic/ severe anxiety escitalopram oxalate [Lexapro] 20 mg Tablet 20 mg PO DAILY clonazepam 0.5 mg tablet 0.5 mg PO BID Qty: 20 0RF
--- NOTE | 2023-06-26 23:39 | W.EDPROG ---
Date of service: 06/26/23 Time of Service: 23:40 Medical Decision Making pt here voluntary for anxiety/panic attacks, currently sleeping in no distress, will continue to monitor until safe dispo found Sign Out Sign Out Data: Sign Out Comment: Patient here for panic attacks/anxiety/depression/suicidal ideations. Here voluntarily. Pending transition to care bed expectantly on Sunday. Patient has been medically cleared. Home medications have been ordered. Last updated by Edouard Prak DO at 06/25/23 14:50 Sign Out Comment: panic attacks/anxiety/depression voluntary, tentative plan for care bed on Sunday Last updated by Matt Hayward MD at 06/25/23 18:14 Sign Out Comment: depression, anxiety, awaiting care bed placement Last updated by Bereket Shepard MD at 06/26/23 07:40 Sign Out Comment: OCD, anxiety, awaiting care bed placement on Sunday. Demerol and Valium given voluntarily today. Last updated by Edouard Park DO at 06/26/23 16:40 Sign Out Comment: History of OCD PTSD currently voluntary medically cleared. No active behavioral issues last shift. Last updated by Anthony Vaughn MD at 06/26/23 22:45 Discharge Plan Discharge Details Chief Complaint: PsychEval Clinical Impression: Suicidal ideation, Panic attack Primary Care Provider: Juana Saavedra ED Provider: Matt Hayward Home Meds and New Rx's Prescriptions: No Action quetiapine 100 mg tablet 150 mg PO QHS quetiapine 50 mg tablet 50 mg PO QAM clonazepam 0.5 mg tablet 0.5 mg PO BID Qty: 20 0RF Patient Comments: does not take anymore trazodone 150 mg tablet 150 mg PO QHS Patient Comments: unable to get refill clonazepam 0.5 mg tablet 0.5 mg PO BID PRNQty: 10 0RF Rx Instructions: prn severe panic/ severe anxiety escitalopram oxalate [Lexapro] 20 mg Tablet 20 mg PO DAILY clonazepam 0.5 mg tablet 0.5 mg PO BID Qty: 20 0RF
[2023-06-27] MEDS: clonazePAM 0.5 MG TAB PO (07:48)
[2023-06-27] MEDS: QUEtiapine 50 MG TAB PO (07:48)
[2023-06-27] MEDS: Escitalopram 20 MG TAB PO (07:48)
[2023-06-27] MEDS: diazePAM 10 MG/2 ML SYR IM (08:42)
--- NOTE | 2023-06-27 08:50 | W.EDPROG ---
Date of service: 06/27/23 Time of Service: 08:50 Medical Decision Making 850 -- Care was signed out by Dr. Hayward, please see his documentation regarding prior ED course. Notified by nursing that patient having significant anxiety despite her prescribed clonazepam this morning. I assessed the patient and she is quite anxious at this time. I will give Valium 10 mg IM. 1205 --patient was seen by crisis screener and plan for discharge to care bed when bed available. Sign Out Sign Out Data: Sign Out Comment: Patient here for panic attacks/anxiety/depression/suicidal ideations. Here voluntarily. Pending transition to care bed expectantly on Sunday. Patient has been medically cleared. Home medications have been ordered. Last updated by Edouard Park DO at 06/25/23 14:50 Sign Out Comment: panic attacks/anxiety/depression voluntary, tentative plan for care bed on Sunday Last updated by Matt Hayward MD at 06/25/23 18:14 Sign Out Comment: depression, anxiety, awaiting care bed placement Last updated by Bereket Shepard MD at 06/26/23 07:40 Sign Out Comment: OCD, anxiety, awaiting care bed placement on Sunday. Demerol and Valium given voluntarily today. Last updated by Edouard Park DO at 06/26/23 16:40 Sign Out Comment: History of OCD PTSD currently voluntary medically cleared. No active behavioral issues last shift. Last updated by Anthony Vaughn MD at 06/26/23 22:45 Sign Out Comment: voluntary for anxiety/panic attacks, no issues during shift Last updated by Matt Hayward MD at 06/26/23 23:45 Discharge Plan Disposition Patient Disposition: Home Condition: Stable Discharge Details Clinical Impression: Panic attack Primary Care Provider: Juana Saavedra ED Provider: Felice Macias Home Meds and New Rx's Prescriptions: Continued clonazepam 0.5 mg tablet 0.5 mg PO BID PRNQty: 10 0RF Rx Instructions: prn severe panic/ severe anxiety clonazepam 0.5 mg tablet 0.5 mg PO BID Qty: 8 0RF quetiapine 100 mg tablet 150 mg PO QHS Qty: 6 0RF trazodone 150 mg tablet 150 mg PO QHS Qty: 4 0RF escitalopram oxalate [Lexapro] 20 mg Tablet 20 mg PO DAILY Qty: 4 0RF quetiapine 50 mg tablet 50 mg PO QAM Qty: 4 0RF Discontinued clonazepam 0.5 mg tablet 0.5 mg PO BID Qty: 20 0RF Patient Comments: does not take anymore Discharge Instructions Instructions: Panic Attack (ED) Additional Instructions: Please follow-up with [facility] services. Please contact your primary care physician to arrange follow-up. Return to the ER immediately for any worsening or new concerning symptoms. Referrals: [facility] [Outside] Keri,MELODY Arias [Primary Care Provider] - Discharge Data Discharge Date/Time-TO BE ENTERED AT DEPARTURE: 06/27/23 13:07
--- NOTE | 2023-06-27 10:00 | CMSP_ITS ---
Date of service: 06/27/23 Time of Service: 10:00 Care Management Safety Plan Status Status: Voluntary Reason for Wait Reason for Wait: Inpatient Admission Safety Plan Safety Plan: CHIEF COMPLAINT:? Marylu is a 38 year old female who presents in the ED due to worsening anxiety, panic attacks and suicidal ideation. Plan is for Marylu to remain at [facility] until the Care Bed can offer her a bed.? CM will continue to follow. VOLUNTARY FOR INPATIENT PSYCHIATRIC STABILIZATION.? Patient is appropriate in all interactions since arriving at [facility]; Pt has demonstrated appropriate coping and communication skills, has articulated his or her needs and concerns and is fully engaged during staff interactions. Safety plan has been established with patient, and care team, to adhere to patient goals, identify restrictions based on behavioral status, address nutrition, and determine allowed personal belongings, tools for hygiene and personal care. Determine level of activity including ambulation, level of supervision, visitors, and determine privileges based on behaviors and level of engagement by pt. SAFETY PLAN: 1. Will remain on suicide precautions. In Paper Clothes 2. Will remain in room under direct supervision of one-on-one staff at all times provided by [employer], COMMUNITY ARTIST, OPTICAL ADVISOR floor covering installer. 3. May have paper cups, plates, finger foods as well as a cardboard spoon with which to eat meals. 4. Follow [facility] Management of the Admitted Behavioral Health Patient policy. 5. Comfort bath system only, shower permitted at RN discretion. 6. No personal belongings-soft items permitted at RN discretion. 7. Visitors: Per [facility] Visitor Policy and at RN discretion. 8. Activities: soft cart items, television and other activities at RN discretion. 9.? Bathroom privileges with escort in the ED, available in room without limitation on Zone B. 10. Phone: contact limited to family at this time, via [employer] hospital phone at RN discretion. 11. Due to VOLUNTARY status, if patient wishes to leave [facility], staff will contact [facility] Crisis Screener ([phone]) and On-Call Nozzle Worker ([phone]) as soon as possible. In the event of elopement, notify [facility] Police ([phone]). Patient is currently voluntarily at [facility] and seeking inpatient admission when a bed becomes available. [facility] Frontline Supervisor Electron Tube Processing will continue seeking placement. Please contact the [employer] Builder Nozzle Worker ([phone]) and [facility] Supervisor Electron Tube Processing ([phone]) for any needed changes in the Safety Plan. Safety plan has been provided to interdepartmental care team.
--- NOTE | 2023-06-27 20:03 | PDOC.MHPN2 ---
Date of service: 06/27/23 Time of Service: 20:03 Mental Health Emergency Note Release [facility] release signed:: Yes Reason for Visit The client arrived to the ED after speaking with this clinician via phone on 06.25.23. We had discussed this as an option and the client was supposed to call however, felt she needed to just go to the ED. In the last 2 weeks has the pt presented for ES prior to today?: Yes, presented at [facility] ED Impression Client is a 38 y/o single female who is currently living in [place], [place] with her mother Renee. Prior to the client moving in with her mother about 2 years ago she lived independently in [place], [place]. Client is currently unemployed due to her not being able to complete day to day living tasks and reports that she cannot leave the house to function in society. This clinician consulted with the ED attending, Dr. Macias and Nurse who reported that the client had a severe panic attack this am which did not benefit from her prescribed medications so was given IM Valium long acting in order for her to relax some. Dr. Macias noted his concerns for her going to the CARE Bed without some sort of med change. This clinician outreached to prescriber, Geena Adorno who noted her concerns for prescribing a benzo as she worries about her symptoms being more related to her personality disorder more than a panic attack she often presents as labile. She did agree to increase the Seroquel dosage from 150mg in the am to 200mg and 50mg at HS to 100 as a rapid increase. She will try to see the client later this week. This was shared with Dr. Macias as well as the CARE field nurse case manager who has accepted the client. Resources Reosurces reviewed and given:: Crisis Bed Plan/Disposition Recommended Disposition: Crisis bed, facility contacted. Status of Crisis Bed acceptance: Accepted/transfer pending. Plan: The client was accepted to the CARE Bed. Person reported agreement to plan: Yes Reports/communication Outcome discussed with: ED/Personnel
== END 2023-06-27 13:07 | disposition home or self-care (01) ==
PROVIDERS: Student in an Organized Health Care Education/Training Program; Emergency Provider Student in an Organized Health Care Education/Training Program; PCP Nurse Practitioner Family
DX: F41.0 Panic disorder [episodic paroxysmal anxiety] (principal); R45.851 Suicidal ideations
CPT/HCPCS: 80053; 80307; 83690; 86850; 86900; 86901; 87635; 96360; 96372; 96374; 96375; 96376; 80320; 80329; 81003; 81015; 84443; 85025; 99285; J2060; J2405; J3360; J3490

== ENCOUNTER 2023-08-04 13:32 | Emergency (ER) | payer MEDICAID, SELFPAY ==
[2023-08-04 13:34] VITALS: BP 142/91; PULSE 99; RESP 22; TEMP 36.4; O2SAT 96
--- NOTE | 2023-08-04 14:08 | ED.GENADUL_ITS ---
Discharge Plan Discharge Details Chief Complaint: PsychEval Primary Care Provider: Juana Saavedra ED Provider: Femi Enriquez Home Meds and New Rx's Prescriptions: No Action quetiapine 100 mg tablet 150 mg PO QHS Qty: 6 0RF trazodone 150 mg tablet 150 mg PO QHS Qty: 4 0RF escitalopram oxalate [Lexapro] 20 mg Tablet 20 mg PO DAILY Qty: 4 0RF quetiapine 50 mg tablet 50 mg PO QAM Qty: 4 0RF Medical Decision Making Patient presenting to the emergency department for chief complaint of anxiety, panic attacks, and suicidal ideations. She states that she has not been doing well recently and texted her mother about her suicidal thoughts this morning. Her mother brought her to the hospital for evaluation. Patient is voluntarily seeking help, states that she is taking her medications but suffers from severe anxiety. Patient is familiar to myself and does have severe panic and anxiety, borderline personality, depression. Physical exam shows obvious external signs of anxiety and panic. Patient states that she does have suicidal ideations with plan to hang herself. Denies any attempts of harm or injury, denies any substance abuse and physical exam is otherwise noncontributory with no signs of altered mental status, intoxication, or any metabolic derangement. Smart form was utilized to medically clear patient for mental health evaluation. As I suspect admission will perform test and COVID test but I do not feel at this time that patient requires any other labs given this is typical presentation when patient has severe panic anxiety. Patient signed out pending mental health evaluation and recommendation. Lab Data Lab results reviewed: Yes I reviewed the patient's lab results. HPI General Mode of arrival: ambulatory . Date/Time Provider Initiated Documentation: 08/04/23 13:39 . Limitations to Documentation: no limitations . Information obtained by: patient and RN notes reviewed . History of Present Illness 38 year old F presents to the emergency department with the chief complaint of Anxiety, suicidal ideations, described as severe and similar to prior episodes, Patient started experiencing this unknown Patient notes no other symptoms.. Patient did receive the following treatments prior to arrival, none Related Data Home Medications Medication Instructions Recorded Confirmed escitalopram oxalate 20 mg tablet 20 mg PO DAILY #4 tabs 06/27/23 08/04/23 (Lexapro) quetiapine 100 mg tablet 150 mg (1.5 x 100 mg) PO QHS #6 10/11/23 11/18/23 tabs quetiapine 50 mg tablet 50 mg PO QAM #4 tabs 06/27/23 08/04/23 trazodone 150 mg tablet 150 mg PO QHS #4 tabs 06/27/23 08/04/23 Previous Rx's Medication Instructions Recorded escitalopram oxalate 20 mg tablet 20 mg PO DAILY #4 tabs 06/27/23 (Lexapro) quetiapine 100 mg tablet 150 mg (1.5 x 100 mg) PO QHS #6 06/27/23 tabs quetiapine 50 mg tablet 50 mg PO QAM #4 tabs 06/27/23 trazodone 150 mg tablet 150 mg PO QHS #4 tabs 06/27/23 Allergies Allergy/AdvReac Type Severity Reaction Status Date / Time cats Allergy Uncoded 08/04/23 13:45 General Stated Complaint: PsychEval JASKARAN: 2 Review of Systems Constitutional Constitutional: Denies body ache(s), Denies chills and Denies fever(s) Eyes Eyes: Denies change in vision ENT Ears, Nose, Mouth, and Throat: Denies sore throat Cardiovascular Cardiovascular: Denies chest pain and Denies dyspnea Respiratory Respiratory: Denies cough and Denies dyspnea Gastrointestinal Gastrointestinal: Denies abdominal pain, Denies diarrhea, Denies nausea and Denies vomiting Genitourinary Genitourinary: Denies dysuria Psychiatric Psychiatric: Reports as per HPI, Reports anxiety, Reports hopelessness, Reports mood swings, Reports panic attacks, Denies homicidal ideation and Reports suicidal ideation PFSH All Active Problems OCD (obsessive compulsive disorder) (Acute) MDD (major depressive disorder) (Chronic) Discharge planning issues (Acute) DVT prophylaxis (Acute) Suicidal ideation (Acute) Medical History Sudden-onset sensorineural hearing loss Menorrhagia with irregular cycle Tinnitus of left ear Borderline personality disorder Panic anxiety syndrome Anxiety and depression Family History Mother No problems noted. Father , 52 Cancer Prostate Brother No problems noted. Social History (Reviewed 08/04/23 @ 14:10 by MARY ELLEN Salvador Smoking/Tobacco Use Status: Never Second Hand Exposure: No Smoking risk assessment performed?: Yes Alcohol Intake: former Drug use: Never Substance use type: does not use Caregiver/Support person: No Household members: other Details: Mother Housing: house Do you need help understanding health information?: Never Pets and animals: No Sexually active: No Do you think of yourself as: straight/heterosexual Current gender identity: female What is your relationship status?: never How often do you talk on the phone with friends or family?: decline to answer How often do you get together with friends or relatives?: decline to answer How often do you attend mandaeism or confucianist services?: decline to answer Do you belong to any clubs or organized social groups?: no Panel score (0-1 are the most socially isolated patients): 0 What type of physical activity do you participate in: none Frequency: does not exercise Keerthi/Christianity: No preference Special keerthi needs: No Seatbelt use: always Drive intox or ride w/intox petrol tanker driver: No Do you feel safe at home: Yes Do you feel safe in your relationship?: Yes Additional Social history: lives with mother DT mental health Exam Const General: cooperative Orientation: alert, awake and oriented x3 Limitations: mental status not altered HENMT Head: normal to inspection, normocephalic and atraumatic Ears: hearing grossly normal bilaterally Mouth: moist mucous membranes Eyes General: appearance normal, both eyes and all related structures Pupils: PERRL EOM: EOM intact bilaterally Resp Effort & Inspection: normal respiratory effort, able to speak in complete sentences and no respiratory distress Auscultation: clear to auscultation bilaterally Cardio Rate: regular rate and not tachycardic Rhythm: regular rhythm Heart Sounds: S1 normal, S2 normal, no click, no gallops, no murmurs and no rubs Neuro General: patient alert, patient awake, patient oriented x3, gait normal, moves all extremities, no focal motor deficits and not confused Cranial Nerves: CN's II-XI intact bilaterally Cognition: normal cognition Speech: speech normal Psych Speech and Movement: agitated, restless and speech not slurred Mood: anxious mood Affect: animated and anxious affect Attitude: cooperative Thought Content: suicidality Course Vital Signs Vital signs: Vital Signs Temperature 36.4 C L 08/04/23 13:34 Pulse 99 H 11/18/23 13:34 Respiratory Rate 22 08/04/23 13:34 Blood Pressure 142/91 H 08/04/23 13:34 Pulse Oximetry 96 08/04/23 13:34 Temperature 36.4 C L 08/04/23 13:34 Temperature Source Oral 08/04/23 13:34 Pulse 99 H 08/04/23 13:34 Respiratory Rate 22 08/04/23 13:34 Blood Pressure 142/91 H 08/04/23 13:34 Blood Pressure Position Sitting 08/04/23 13:34 Pulse Oximetry 96 08/04/23 13:34 Oxygen Delivery Method Room Air 08/04/23 13:34 Oxygen Flow Rate 0 08/04/23 13:34 Pain Level 0 08/04/23 13:34 Sign Out Sign Out Data: Sign Out Comment: Patient signed out pending mental health evaluation and recommendation. Patient seeking evaluation for anxiety and suicidal ideations Last updated by Femi Enriquez NP at 08/04/23 16:12
[2023-08-04 14:34] LABS: Source Nasal/Nares
[2023-08-04] MEDS: LORazepam 1 MG TAB PO ×2 (14:38→18:09)
[2023-08-04 15:08] LABS: COVID-19 PCR Negative (Negative)
--- NOTE | 2023-08-04 15:56 | CMSP_ITS ---
Date of service: 08/04/23 Time of Service: 15:56 Care Management Safety Plan Status Status: Voluntary Reason for Wait Reason for Wait: Inpatient Admission Safety Plan Safety Plan: VOLUNTARY FOR INPATIENT PSYCHIATRIC STABILIZATION.? Patient is appropriate in all interactions since arriving at [facility]; Pt has demonstrated appropriate coping and communication skills, has articulated his or her needs and concerns and is fully engaged during staff interactions. Safety plan has been established with patient, and care team, to adhere to patient goals, identify restrictions based on behavioral status, address nutrition, and determine allowed personal belongings, tools for hygiene and personal care. Determine level of activity including ambulation, level of superv ision, visitors, and determine privileges based on behaviors and level of engagement by pt. SAFETY PLAN: 1. Will remain on suicide precautions, in paper clothes 2. Will remain in Zone B under direct supervision of one-on-one staff at all times provided by [employer]; [employer], EXHAUST AND MUFFLER FITTER digital account coordinator. 3. May have paper cups, plates, finger foods as well as a cardboard spoon with which to eat meals. 4. Follow [facility] Management of the Admitted Behavioral Health Patient policy. 5. Shower permitted in Zone B. 6. Personal belongings-soft items permitted at RN discretion. 7. Visitors-none at this time. 8. Activities: soft cart items approved per RN discretion. 9.? Bathroom privileges. 10. Phone: limited to cordless phone at RN discretion. Due to VOLUNTARY status, if patient wishes to leave [facility], staff will contact [facility] Crisis Screener ([phone]) and On-Call Senior Recruitment Consultant ([phone]) as soon as possible. In the event of elopement, notify [facility] Police ([phone]). Patient is currently voluntarily at [facility] and seeking inpatient admission when a bed becomes available. [facility] Frontline Contracts Law Professor will continue seeking placement. Please contact the Talent Development Coordinator Senior Recruitment Consultant ([phone]) and [facility] Contracts Law Professor ([phone]) for any needed changes in the Safety Plan. Safety plan has been provided to interdepartmental care team.
[2023-08-04] MEDS: traZODone 100 MG TAB 150 MG PO (19:01)
[2023-08-04 20:20] VITALS: BP 99/65; PULSE 89; RESP 16; TEMP 37.1; O2SAT 95
[2023-08-04 20:48] LABS: *AMPHETAMINES SCREEN URINE Negative (Negative); *BARBITURATES SCREEN URINE Negative (Negative); *BENZODIAZEPINES SCREEN URINE Positive (Negative); Cannabinoids THC Negative (Negative); Cocaine Screen,Urine Negative (Negative); METHADONE URINE SCREEN Negative (Negative); OPIATES URINE SCREEN Negative (Negative)
[2023-08-04 20:50] LABS: Tricyclic Antidepressants Negative (Negative)
--- NOTE | 2023-08-04 22:02 | W.EDPROG ---
Date of service: 08/04/23 Time of Service: 22:05 Medical Decision Making Care accepted from Jose Enriquez, pending voluntary placement Patient has been calm and cooperative, intermittent anxiety, given single dose of Ativan and her nightly trazodone during this encounter will transition care pending voluntary placement Discharge Plan Disposition Patient Disposition: Home Discharge Details Clinical Impression: Suicidal ideation Primary Care Provider: Juana Saavedra ED Provider: Annabella Dudley Home Meds and New Rx's Prescriptions: Continued quetiapine 100 mg tablet 150 mg PO QHS Qty: 6 0RF trazodone 150 mg tablet 150 mg PO QHS Qty: 4 0RF escitalopram oxalate [Lexapro] 20 mg Tablet 20 mg PO DAILY Qty: 4 0RF quetiapine 50 mg tablet 50 mg PO QAM Qty: 4 0RF Discharge Instructions Referrals: Juana Saavedra NP [Primary Care Provider] -
[2023-08-05] MEDS: LORazepam 1 MG TAB PO ×2 (08:21→15:37)
[2023-08-05] MEDS: Escitalopram 20 MG TAB PO (08:21)
[2023-08-05] MEDS: QUEtiapine 25 MG TAB PO (08:21)
[2023-08-05 09:13] LABS: Bilirubin Negative (Negative); Blood Negative (Negative); Clarity Clear (Clear); Glucose Negative (Negative); Ketones Negative (Negative); Leukocyte Esterase Negative (Negative); Nitrite Negative (Negative); Urobilinogen 0.2 mg/dL (Up to 0.2); pH 8.5 (5-8)
--- NOTE | 2023-08-05 09:51 | PDOC.MHCN_ITS ---
Date of service: 08/04/23 Time of Service: 02:00 PHQ-9 Over the last 2 weeks, how often have you been bothered by any of the following problems? 1. Little interest or pleasure in doing things: nearly every day 2. Feeling down, depressed, or hopeless: nearly every day 3. Trouble falling or staying asleep, or sleeping too much: several days 4. Feeling tired or having little energy: several days 5. Poor appetite or overeating: several days 6. Feeling bad about yourself - or that you are a failure or have let yourself and your family down: nearly every day 7. Trouble concentrating on things, such as reading the newspaper or watching television: not at all 8. Moving or speaking so slowly that other people could have noticed? - Or the opposite - being so fidgety or restless that you have been moving around a lot more than usual: several days 9. Thoughts that you would be better off or of hurting yourself in some way: nearly every day Total score: 16 Source: Developed by Drs. Ramón Fuentes, Vaishali Mora, Edison Azevedo and colleagues, with an educational constanza from [employer]. Suicide Severity Rate CSSRS Have you wished you were or wished you could go to sleep and not wake up?: Yes Have you actually had any thoughts of killing yourself?: Yes CSSRS2 Have you been thinking about how you might do this?: Yes Have you had these thoughts and had some intention of acting on them?: Yes Have you started to work out or worked out the details of how to kill yourself? Do you intend to carry out this plan?: No CSSRS3 Have you ever done anything, started to do anything or prepared to do anything to end your life?: Yes CSSRS4 Was this within the past three months?: Yes Screening Score Total Score: 8 Screening: Positive Mental Health Emergency Note Release [facility] release signed:: Yes Reason for Visit Patient was dropped off by mother due to having severe suicidal ideation In the last 2 weeks has the pt presented for ES prior to today?: No Client Information Client is: Adult Outpatient Well Housed: Yes Non Suicidal Self Injury Current: No History: No Safety Risk/Harm to Self or Others Current Ideation to Harm Self or Others: Yes to self. Intent: yes, has intent. Plan: yes,has a plan. History of suicide attempt: No history of suicide attempt reported Risk: Does risk to harm exist?: yes. Risk: High Risk Duty to warn indicated: Yes Asssessment/Mental Status Appearance: Other Attitude: Cooperative Behavior: Other Speech: Soft and Slow Affect: Constricted Mood: Sad and Depressed Thought process: Goal directed and Poverty of content Hallucinations: No Delusions: No Attention: Unremarkable Perception: Not impaired Orientation: Fully orientated Memory: Intact Insight: Fair Judgement: Fair Neurovegetative Symptoms Sleep: Increase Appetitie: Decrease Interests: No change Energy: Decrease Libido: Not applicable Substance Use: Other Drug Issues: Other Do you use nicotine?: No Have you used substances in the last 7 days?: No Additional Issues: Assaultive/Threatening Behavior: No Medical Concerns: No Client engaged in active self harm w/weapon: No Threatening to run away: No Child reported abuse/neglect: No Voluntarily presenting for services: Yes Domestic violence is a concern: No Extreme Psychosis or extreme behavior is present: No Impression This client is well known to [facility] and [facility]. She suffers from severe mental illness. She presents to the ER today due to extreme suicidal ideation. She was cooperative but needed to be prompted to get a full response verbally. This clinician has sent out 4 referrals on her behalf for inpatient treatment. Plan/Disposition Recommended Disposition: Hospitalization facilities contacted. Plan: The plan for this client is to remain in the hospital while waitng [facility]. However she will be reassessed each day and if she wants to go home, is no longer suicidal, and agree's to a Safety Plan, she may be released upon agreement with her doctor and mental health provider. Facilities contacted if Applicable [facility] (on waiting list) Not accepted, (waiting list) Other [facility] (on waiting list) Not accepted, (waiting list) [facility] (on waiting list) Not accepted, (waiting list) [facility] (on waiting list) Not accepted, (waiting list) Other Reports/communication Outcome discussed with: ED/Personnel
--- NOTE | 2023-08-05 13:15 | W.EDPROG ---
Date of service: 08/05/23 Time of Service: 13:15 Medical Decision Making Patient [place] been [place] [facility] [place] Calm cooperative medically cleared. Sign Out Sign Out Data: Sign Out Comment: SI/anxiety, voluntary placement status Last updated by Annabella Dudley PA at 08/04/23 23:45 Sign Out Comment: Voluntary placement. Suicidal. No interventions needed throughout the night. Stable throughout the night. Last updated by Edouard Park DO at 08/05/23 07:28 Discharge Plan Disposition Patient Disposition: Psychiatric Hospital/Unit Specific Psychiatric Facility: [facility] Condition: Stable Discharge Details Chief Complaint: PsychEval Clinical Impression: Suicidal ideation Primary Care Provider: Juana Saavedra ED Provider: Bereket Shepard Home Meds and New Rx's Prescriptions: Continued quetiapine 100 mg tablet 150 mg PO QHS Qty: 6 0RF trazodone 150 mg tablet 150 mg PO QHS Qty: 4 0RF escitalopram oxalate [Lexapro] 20 mg Tablet 20 mg PO DAILY Qty: 4 0RF quetiapine 50 mg tablet 50 mg PO QAM Qty: 4 0RF Discharge Instructions Referrals: Juana Saavedra, SENIOR PRICING ANALYST [Primary Care Provider] -
--- NOTE | 2023-08-05 15:31 | MHPN_ITS ---
Date of service: 08/05/23 Time of Service: 01:15 PHQ-9 Over the last 2 weeks, how often have you been bothered by any of the following problems? 1. Little interest or pleasure in doing things: nearly every day 2. Feeling down, depressed, or hopeless: nearly every day 3. Trouble falling or staying asleep, or sleeping too much: more than half the days 4. Feeling tired or having little energy: more than half the days 5. Poor appetite or overeating: more than half the days 6. Feeling bad about yourself - or that you are a failure or have let yourself and your family down: more than half the days 7. Trouble concentrating on things, such as reading the newspaper or watching television: more than half the days 8. Moving or speaking so slowly that other people could have noticed? - Or the opposite - being so fidgety or restless that you have been moving around a lot more than usual: several days 9. Thoughts that you would be better off or of hurting yourself in some way: more than half the days Total score: 19 Source: Developed by Drs. Ramón Fuentes, Vaishali Mora, Edison Azevedo and colleagues, with an educational constanza from [employer]. Suicide Severity Rate CSSRS Have you wished you were or wished you could go to sleep and not wake up?: Yes Have you actually had any thoughts of killing yourself?: Yes CSSRS2 Have you been thinking about how you might do this?: Yes Have you had these thoughts and had some intention of acting on them?: Yes Have you started to work out or worked out the details of how to kill yourself? 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 Intent: yes, has intent. Plan: no.does not have a plan. History of suicide attempt: No history of suicide attempt reported Risk: Does risk to harm exist?: yes. Risk: Severe Duty to warn indicated: Yes Asssessment/Mental Status Appearance: Other Attitude: Cooperative Behavior: Other Speech: Soft Affect: Cogruent with mood Mood: Sad and Depressed Thought process: Goal directed and Poverty of content Hallucinations: No Delusions: No Attention: Other Perception: Not impaired Orientation: Fully orientated Memory: Intact Insight: Fair Judgement: Fair Neurovegetative Symptoms Sleep: Increase Appetitie: Decrease Interests: Decrease Energy: Decrease Libido: Not applicable Substance Use: Other Drug Issues: Other Do you use nicotine?: No Have you used substances in the last 7 days?: No Additional Issues: Assaultive/Threatening Behavior: No Medical Concerns: No Client engaged in active self harm w/weapon: No Threatening to run away: No Child reported abuse/neglect: No Voluntarily presenting for services: Yes Domestic violence is a concern: No Extreme Psychosis or extreme behavior is present: No Impression Client was in a much better space today. She was cooperative and wanting to go inpatient as soon as possible Plan/Disposition Recommended Disposition: Hospitalization facilities contacted. Plan: This client was [place] [facility] [place] shortly. Facilities contacted if Applicable [facility] Accepted, Accepted/transfer pending. Information Sent to [facility]: Referral Reports/communication Outcome discussed with: ED/Personnel
--- NOTE | 2023-08-05 15:43 | CMDISCH_ITS ---
Date of service: 08/05/23 Time of Service: 15:43 Care Management Discharge Plan Reason for Hospitalization: depression and SI Discharge Plan: Marylu will be transferred voluntarily to [facility] for psychiatric stabilization. She will be transported via [employer]s coordinated by CM. Patient/Family Education Needs: Expectations, limitations Services Needed at Discharge: Transportation Disposition Disposition: [facility] Transport via of: Irrigation Specialist ([place])
--- NOTE | 2023-08-05 15:43 | PDOC.CMDIS ---
Date of service: 08/05/23 Time of Service: 15:43 Care Management Discharge Plan Reason for Hospitalization: depression and SI Discharge Plan: Marylu will be transferred voluntarily to [facility] [place]. She will be transported via [employer] coordinated by CM. Patient/Family Education Needs: Expectations, limitations Services Needed at Discharge: Transportation Disposition Disposition: [facility] Transport via of: Farm Field Manager ([place])
[2023-08-05 15:55] VITALS: BP 104/70; PULSE 82; O2SAT 97
== END 2023-08-05 15:56 ==
PROVIDERS: Nurse Practitioner Family; Physician Assistant; Emergency Provider Emergency Medicine; PCP Nurse Practitioner Family
DX: R45.851 Suicidal ideations (principal); F41.9 Anxiety disorder, unspecified; F32.A Depression, unspecified; Z11.52 Encounter for screening for COVID-19
CPT/HCPCS: 00123; 80307; 81025; 87635; 96127; 99285; 81003

== ENCOUNTER 2023-11-09 13:56 | Emergency (ER) | payer MEDICAID, SELFPAY ==
[2023-11-09 14:00] VITALS: BP 113/60; PULSE 79; RESP 18; TEMP 37.1; O2SAT 99
--- NOTE | 2023-11-09 14:08 | ED.GENADUL_ITS ---
Discharge Plan Disposition Patient Disposition: Home Discharge Details Clinical Impression: Depression Primary Care Provider: Juana aSavedra ED Provider: Anthony Vaughn Home Meds and New Rx's Prescriptions: Continued escitalopram oxalate [Lexapro] 5 mg tablet 5 mg PO DAILY Rx Instructions: Take one tablet by mouth daily. In addition to 20 mg for a total of 25mg. trazodone 100 mg tablet 100 mg PO QHS quetiapine 100 mg tablet 100 mg PO QHS escitalopram oxalate [Lexapro] 20 mg Tablet 20 mg PO DAILY Qty: 4 0RF Discharge Instructions Instructions: Depression (ED) Additional Instructions: You were seen in the emergency department for your depression. You met with the crisis team. They provided you with a safety plan. If you do not feel comfortable with this plan or if you have any other concerns please return to the emergency department. Otherwise please follow-up with the outpatient team next week. Please continue taking your previously prescribed medications as directed. Discharge Data Discharge Date/Time-TO BE ENTERED AT DEPARTURE: 11/09/23 15:47 HPI General Date/Time Provider Initiated Documentation: 11/09/23 14:08 . HPI Narrative: MDM This is an overall very well-appearing normothermic and not tachycardic 38-year-old female with a history of anxiety, depression, borderline personality disorder now in the emergency department in the setting of anxiety and depression. She denies suicidal and homicidal ideation. Will order a sitter for the patient. She has no nuchal rigidity to suggest meningitis. She is not altered to suggest encephalitis. No pain out of proportion to suggest necrotizing soft tissue infection. No sign of anticholinergic toxidrome to suggest overdose. No signs of sympathomimetic toxidrome. Non an alcoholic to suggest increased risk for withdrawal. No pressured speech to suggest psychosis. No flight of ideas to suggest schizophrenia. Patient denies any overdoses on medications and as result she is smart medically cleared based on reassuring vital signs. I have ordered the patient's home medications. I have also ordered a regular diet on a safety tray. I have also ordered a clinical safety monitor. 3:08 PM Urine negative. 3:20 PM I spoke with Jade Harden from [facility]. She had made a safety plan with the patient. Patient did not want to be hospitalized. Jaed will fax along with a safety plan. I met with the patient. She felt comfortable with the plan to be discharged home. I advised to return to the emergency department if she develops any concerns about her safety felt increasingly anxious or had any other concerns. She understood her return indic ations and was discharged with an empiric trial of expectant outpatient management. SMART medical clearance (if all five of the following are answered ``no?? then the patient is considered medically cleared and no testing is indicated): Suspect new onset psychiatric condition or features? [No] Medical conditions that require screening? [No] Diabetes (FSBS less than 60 or greater the 250) Possibility of (age 12 - 50) Other complaints that require screening Abnormal: [No] Vital signs? Temp: greater than 38.0 degrees C (100.4 degrees F) HR: less than 50 or greater than 110 BP: less than 100 systolic or greater than 180/110 (2 consecutive readings 10 min apart) RR: less than 8 or greater than 22 O2 sat: less than 95 % on room air Mental status? Cannot answer name, month/year and location (minimum / 3) If clinically intoxicated, HII score 4 or more? Physical Exam (unclothed)? Risky presentation? [No] Age less than 12 or greater than 55 Possibility of ingestion (screen all suicidal patients) Eating disorders Potential for alcohol withdrawal (daily use > or equal to 2 weeks) Ill appearing, significant injury, prolonged struggle or ``found down?? Therapeutic levels needed? [No] Phenytoin, Valproic Acid, Rand, Digoxin, Warfarin, Carbamazepine Chronic conditions affecting the care of the patient: Depression suicidal ideation History obtained from an outside historian: N/A External record review: N/A Medications: Hydroxyzine and home meds Social determinants of health affecting disposition: N/A Management discussed with: [] Treatment/interventions considered: N/A Response to therapies provided: [] HPI This is a 38-year-old female with a history of suicidal ideation and OCD with depression arriving to the emergency department via private vehicle in the setting of worsening depression. Patient reports no recent changes in her medications. She says that she is increasingly anxious. She denies visual and auditory hallucinations. She has not taken any extra doses of her medications. She denies routine tobacco, ethanol, and illicits. She denies any fevers or shortness of breath chest pain dysuria and frequency. Exam General: Well-appearing in no acute distress speaking in complete sentences. Head: Normocephalic, atraumatic. Eye: Extraocular eye movements intact. No conjunctival injection. No scleral icterus. Ear, nose, mouth, throat: Grossly normal inspection. Normal voice, handling secretions normally. Neck: Trachea midline. Cardiovascular: Well-perfused distal extremities. Respiratory: Nonlabored respiration. Gastrointestinal: Nondistended abdomen. Musculoskeletal: No edema. Moving all 4 extremities spontaneously. Skin: Normal for age and race, grossly normal temperature and turgor. No acute rash. Neurologic: Alert and appropriate, no apparent acute deficits. Psychiatric: Mood and manner are appropriate. Grooming and personal hygiene are appropriate. Related Data Home Medications Medication Instructions Recorded Confirmed escitalopram oxalate 20 mg tablet 20 mg PO DAILY #4 tabs 06/27/23 11/09/23 (Lexapro) escitalopram oxalate 5 mg tablet 5 mg PO DAILY 08/29/23 11/09/23 (Lexapro) quetiapine 100 mg tablet 100 mg PO QHS 08/29/23 11/09/23 trazodone 100 mg tablet 100 mg PO QHS 08/29/23 11/09/23 Previous Rx's Medication Instructions Recorded escitalopram oxalate 20 mg tablet 20 mg PO DAILY #4 tabs 06/27/23 (Lexapro) Allergies Allergy/AdvReac Type Severity Reaction Status Date / Time cats Allergy Mild Other (See Uncoded 11/09/23 14:04 Comment) General Stated Complaint: PsychEval JASKARAN: 2 Course Vital Signs Vital signs: Vital Signs Temperature 37.1 C 11/09/23 14:00 Pulse 79 11/09/23 14:00 Respiratory Rate 18 11/09/23 14:00 Blood Pressure 113/60 11/09/23 14:00 Pulse Oximetry 99 11/09/23 14:00 Temperature 37.1 C 11/09/23 14:00 Temperature Source Skin 11/09/23 14:00 Pulse 79 11/09/23 14:00 Respiratory Rate 18 11/09/23 14:00 Blood Pressure 113/60 11/09/23 14:00 Pulse Oximetry 99 11/09/23 14:00 Pain Level 0 11/09/23 14:00 Medical Decision Making Quality:SDOH Health Related Social Needs: No Data to Display PFSH All Active Problems (Updated 11/09/23 @ 15:29 by Anthony Vaughn MD) Depression (Chronic) OCD (obsessive compulsive disorder) (Acute) MDD (major depressive disorder) (Chronic) DVT prophylaxis (Acute) Suicidal ideation (Acute) Medical History (Updated 11/09/23 @ 15:29 by Anthony Vaughn MD) Discharge planning issues Sudden-onset sensorineural hearing loss Menorrhagia with irregular cycle Tinnitus of left ear Borderline personality disorder Panic anxiety syndrome Anxiety and depression Family History Mother No problems noted. Father , 52 Cancer Prostate Brother No problems noted. Social History Smoking/Tobacco Use Status: Never Second Hand Exposure: No Smoking risk assessment performed?: Yes Alcohol Intake: former Drug use: Never Substance use type: does not use Caregiver/Support person: No Household members: other Details: Mother Housing: house Do you need help understanding health information?: Never Pets and animals: No Sexually active: No Do you think of yourself as: straight/heterosexual Current gender identity: female What is your relationship status?: never How often do you talk on the phone with friends or family?: decline to answer How often do you get together with friends or relatives?: decline to answer How often do you attend mandaeism or jehovah's witness services?: decline to answer Do you belong to any clubs or organized social groups?: no Panel score (0-1 are the most socially isolated patients): 0 What type of physical activity do you participate in: none Frequency: does not exercise Keerthi/Christian: No preference Special keerthi needs: No Seatbelt use: always Drive intox or ride w/intox driver guide: No Do you feel safe at home: Yes Do you feel safe in your relationship?: Yes Additional Social history: lives with mother mental health
--- NOTE | 2023-11-09 14:23 | NUR.NOTE ---
Nursing Note: pt arrives to unit approximately 1415. Pt sitting in bed eating lunch. Appears guarded. Pt requesting use of phone to call her mother.
[2023-11-09] MEDS: hydrOXYzine HCL 25 MG TAB PO (14:51)
== END 2023-11-09 15:47 | disposition home or self-care (01) ==
PROVIDERS: Emergency Provider Emergency Medicine; PCP Nurse Practitioner Family
DX: F32.A Depression, unspecified (principal)
CPT/HCPCS: 99284

== ENCOUNTER 2024-01-24 13:02 | Emergency (ER) | payer MEDICAID, SELFPAY ==
[2024-01-24 13:10] VITALS: BP 108/90; PULSE 108; RESP 18; TEMP 37.2; O2SAT 98
--- NOTE | 2024-01-24 13:36 | ED.GENADUL_ITS ---
Discharge Plan Discharge Details Chief Complaint: PsychEval Primary Care Provider: Juana Saavedra ED Provider: Matt Hayward Home Meds and New Rx's Prescriptions: No Action escitalopram oxalate [Lexapro] 5 mg tablet 5 mg PO DAILY Rx Instructions: Take one tablet by mouth daily. In addition to 20 mg for a total of 25mg. trazodone 100 mg tablet 100 mg PO QHS quetiapine 100 mg tablet 100 mg PO QHS escitalopram oxalate [Lexapro] 20 mg Tablet 20 mg PO DAILY Qty: 4 0RF HPI General Mode of arrival: ambulatory . Date/Time Provider Initiated Documentation: 01/24/24 13:16 . Limitations to Documentation: no limitations . Information obtained by: patient . History of Present Illness 39 year old F presents to the emergency department with the chief complaint of Depression and SI, described as moderate, Patient reports no radiation. and it has been constant. No relieving factors improve symptom(s), No exacerbating factors reported . Patient notes other (Anxiety). Patient did receive the following treatments prior to arrival, none Related Data Home Medications Medication Instructions Recorded Confirmed escitalopram oxalate 20 mg tablet 20 mg PO DAILY #4 tabs 06/27/23 11/09/23 (Lexapro) escitalopram oxalate 5 mg tablet 5 mg PO DAILY 08/29/23 11/09/23 (Lexapro) quetiapine 100 mg tablet 100 mg PO QHS 08/29/23 11/09/23 trazodone 100 mg tablet 100 mg PO QHS 08/29/23 11/09/23 Previous Rx's Medication Instructions Recorded escitalopram oxalate 20 mg tablet 20 mg PO DAILY #4 tabs 06/27/23 (Lexapro) Allergies Allergy/AdvReac Type Severity Reaction Status Date / Time cats Allergy Mild Other (See Uncoded 11/09/23 14:04 Comment) General Stated Complaint: PsychEval JASKARAN: 2 Review of Systems All systems reviewed & are unremarkable except as noted in HPI and below Constitutional Constitutional: Denies chills, Denies fever(s) and Denies weakness Cardiovascular Cardiovascular: Denies chest pain and Denies dyspnea Respiratory Respiratory: Denies cough and Denies dyspnea Gastrointestinal Gastrointestinal: Denies abdominal pain, Denies nausea and Denies vomiting Musculoskeletal Musculoskeletal: Denies joint swelling Neurologic Neurologic: Denies weakness Psychiatric Psychiatric: Reports depression Allergic/Immunologic Allergic/Immunologic: Denies urticaria Exam Const Orientation: alert HENID Head: normal to inspection Ears: external ears normal General nose exam: external nose normal Mouth: moist mucous membranes Eyes General: appearance normal, both eyes and all related structures Neck Neck: normal visual inspection Resp Effort & Inspection: normal respiratory effort and able to speak in complete sentences Cardio Rate: regular rate Skin General skin exam: no rashes or lesions noted Neuro General: patient alert and patient oriented x3 Extrem General: normal to inspection Psych Affect: sad Course Vital Signs Vital signs: Vital Signs Temperature 37.2 C 01/24/24 13:10 Pulse 108 H 01/24/24 13:10 Respiratory Rate 18 01/24/24 13:10 Blood Pressure 108/90 01/24/24 13:10 Pulse Oximetry 98 01/24/24 13:10 Temperature 37.2 C 01/24/24 13:10 Temperature Source Temporal Artery Scan 01/24/24 13:10 Pulse 108 H 01/24/24 13:10 Respiratory Rate 18 01/24/24 13:10 Respiratory Effort Normal, Non-Labored 01/24/24 13:13 Blood Pressure 108/90 01/24/24 13:10 Blood Pressure Position Sitting 01/24/24 13:10 Pulse Oximetry 98 01/24/24 13:10 Oxygen Delivery Method Room Air 01/24/24 13:10 Oxygen Flow Rate 0 01/24/24 13:10 Pain Level 10 01/24/24 13:10 Comment emotional pain 01/24/24 13:10 Medical Decision Making 39-year-old female with a history of depression comes in with worsening depression and thoughts of self-harm. She says for a while she has had thoughts of self-harm including wanting to hang herself. Denies actually acting on any of these thoughts. She arrives tearful, is alert and oriented x 4 and answers questions appropriately. Denies any alcohol or drug use today or recently. Has no focal deficits, normal gait. Will obtain screening labs and have mental health evaluate the patient. Is unremarkable mental health evaluation pending, will be signed out to oncoming provider pending mental evaluation Differential Diagnosis Differential Diagnosis: Depression, SI Medical Records Medical records reviewed: Yes I reviewed the patient's medical records. Lab Data Lab results reviewed: Yes I reviewed the patient's lab results. Quality:SDOH Health Related Social Needs: No Data to Display PFSH All Active Problems (Updated 12/10/23 @ 00:06 by DEBORAH ESPARZA) OCD (obsessive compulsive disorder) (Acute) MDD (major depressive disorder) (Chronic) DVT prophylaxis (Acute) Suicidal ideation (Acute) Medical History (Updated 12/10/23 @ 00:06 by DEBORAH ESPARZA) Discharge planning issues Sudden-onset sensorineural hearing loss Menorrhagia with irregular cycle Tinnitus of left ear Borderline personality disorder Panic anxiety syndrome Anxiety and depression Family History Mother No problems noted. Father , 52 Cancer Prostate Brother No problems noted. Social History Smoking/Tobacco Use Status: Never Second Hand Exposure: No Smoking risk assessment performed?: Yes Alcohol Intake: former Drug use: Never Substance use type: does not use Caregiver/Support person: No Household members: other Details: Mother Housing: house Do you need help understanding health information?: Never Pets and animals: No Sexually active: No Do you think of yourself as: straight/heterosexual Current gender identity: female What is your relationship status?: never How often do you talk on the phone with friends or family?: decline to answer How often do you get together with friends or relatives?: decline to answer How often do you attend adventism or holiness services?: decline to answer Do you belong to any clubs or organized social groups?: no Panel score (0-1 are the most socially isolated patients): 0 What type of physical activity do you participate in: none Frequency: does not exercise Keerthi/Denominational: No preference Special keerthi needs: No Seatbelt use: always Drive intox or ride w/intox backhaul driver: No Do you feel safe at home: Yes Do you feel safe in your relationship?: Yes Additional Social history: lives with mother DT mental health Sign Out Sign Out Data: Sign Out Comment: Patient with a history of depression here with worsening thoughts of self-harm, screening exam and labs were negative is waiting for mental health evaluation. Was anxious on arrival so was given 1 mg oral Ativan. Last updated by Matt Hayward MD at 01/24/24 14:54
[2024-01-24] MEDS: LORazepam 1 MG TAB PO (13:37)
[2024-01-24 13:50] LABS: Abs Immature Grans 0.02 10^3/uL (0.0-0.06); Absolute Basophil Count 0.09 10^3/uL (0.0-0.2); Absolute Eosinophil Count 0.19 10^3/uL (0.0-0.7); Absolute Lymphocyte Count 2.67 10^3/uL (1.2-3.4); Absolute Monocyte Count 0.58 10^3/uL (0.1-0.8); Absolute Neutrophil Count 4.78 10^3/uL (1.2-6.7); Basophils % 1.1 %; Eosinophils % 2.3 %; HCT 32.4 % (36.0-46.0); HGB 9.9 g/dL (11.2-15.7); Immature Grans % 0.2 %; Lymphocytes % 32.1 %; MCH 22.1 pg (27.0-33.0); MCHC 30.6 % (32.0-36.0); MCV 72 fL (80-95); MPV 9.3 fL (8.0-11.0); Neutrophils % 57.3 %; Platelet Count 344 10^3/uL (130-400); RBC 4.48 10^6/uL (3.93-5.22); RDW 15.9 % (11.7-14.6); RDW-SD 41.3 fL; WBC 8.33 10^3/uL (4.4-10.8)
[2024-01-24 13:51] LABS: Bilirubin Negative (Negative); Blood Moderate (Negative); Clarity Sl Cloudy (Clear); Glucose Negative (Negative); Ketones Negative (Negative); Leukocyte Esterase Small (Negative); Nitrite Negative (Negative); Urobilinogen 0.2 mg/dL (Up to 0.2)
[2024-01-24 13:59] LABS: *AMPHETAMINES SCREEN URINE Negative (Negative); *BARBITURATES SCREEN URINE Negative (Negative); *BENZODIAZEPINES SCREEN URINE Positive (Negative); Bacteria Few HPF (Negative); Cannabinoids THC Negative (Negative); Cocaine Screen,Urine Negative (Negative); Crystals Few Amorphous HPF (Negative); Epithelial Cells Moderate HPF (Negative); METHADONE URINE SCREEN Negative (Negative); OPIATES URINE SCREEN Negative (Negative)
[2024-01-24 14:00] LABS: C & S Indicated? No; Casts Negative LPF (Negative); Mucus Trace (Negative); Tricyclic Antidepressants Positive (Negative)
[2024-01-24 14:12] LABS: Diff Comment RBC Morph Reviewed; Microcytosis 2+
[2024-01-24 14:14] LABS: ALT 21 U/L (14-59); AST 16 U/L (15-37); Albumin 4.4 g/dL (3.4-5.0); Alkaline Phosphatase 45 U/L (46-116); Anion Gap 11.6 mmol/L (3-11); BUN 10 mg/dL (7-18); Bilirubin, Total 0.4 mg/dL (0.2-1.0); CO2 25.4 mmol/L (21.0-32.0); CREATININE 0.7 mg/dL (0.55-1.02); Calcium 8.8 mg/dL (8.5-10.1); Chloride 102 mmol/L (98-107); ETHANOL BLOOD 3.2 mg/dL (<10); Estimated GFR 114.16 (mL/min/1.73m2); Glucose 103 mg/dL (74-106); Potassium 3.7 mmol/L (3.5-5.1); Sodium 139 mmol/L (136-145); TSH (W/Ref FT4) 0.94 uIU/mL (0.36-3.74); Total Protein 7.9 g/dL (6.4-8.2)
[2024-01-24 14:31] LABS: Acetaminophen < 2 ug/mL (10-30); Salicylate < 2.8 mg/dL (<2.8)
--- NOTE | 2024-01-24 15:20 | CMSP_ITS ---
Date of service: 01/24/24 Time of Service: 15:20 Care Management Safety Plan Status Status: Voluntary Reason for Wait Reason for Wait: Inpatient Admission Safety Plan Safety Plan: VOLUNTARY FOR INPATIENT PSYCHIATRIC STABILIZATION.? Patient is appropriate in all interactions since arriving at [facility]; Pt has demonstrated appropriate coping and communication skills, has articulated his or her needs and concerns and is fully engaged during staff interactions. Patient remains voluntary at this time, [facility] reports intention to seek involuntary hold if Marylu changes her mind about voluntarily seeking treatment. Safety plan has been established with patient, and care team, to adhere to patient goals, identify restrictions based on behavioral status, address nutrition, and determine allowed personal belongings, tools for hygiene and personal care. Determine level of activity including ambulation, level of supervision, visitors, and determine privileges based on behaviors and level of engagement by pt. SAFETY PLAN: 1. Will remain on suicide precautions, in paper clothes 2. Will remain in Zone B under direct supervision of one-on-one staff at all times provided by [employer]; EMEKA, IRON WORKER corrections nurse. 3. May have paper cups, plates, finger foods as well as a cardboard spoon with which to eat meals. 4. Follow [facility] Management of the Admitted Behavioral Health Patient policy. 5. Shower available in Zone B without restriction. 6. Personal belongings-soft items permitted at RN discretion. 7. Visitors-permitted at RN discretion, Mother permitted as long as Marylu is able to self regulate-for reconsideration if visits escalate Marylu-per [facility] recommendation. 8. Activities: soft cart items approved per RN discretion. 9.? Bathroom available in Zone B without restriction. 10. Phone: limited to [facility] cordless phone at RN discretion. Due to VOLUNTARY status, if patient wishes to leave [facility], staff will contact [facility] Crisis Screener ([phone]) and [employer] Advisor ([phone]) as soon as possible. In the event of elopement, notify [facility] Police ([phone]). Patient is currently voluntarily at [facility] and seeking inpatient admission when a bed becomes available. [facility] Frontline Windows Deployment Technician will continue seeking placement. Please contact the [employer] Advisor ([phone]) and [facility] Windows Deployment Technician ([phone]) for any needed changes in the Safety Plan. Safety plan has been provided to interdepartmental care team.
[2024-01-24] MEDS: hydrOXYzine HCL 25 MG TAB 50 MG PO ×2 (18:20→19:47)
--- NOTE | 2024-01-24 19:26 | W.EDPROG ---
Date of service: 01/24/24 Time of Service: 19:26 Medical Decision Making 39-year-old female with depression, suicidal ideation and plan to kill herself. Evaluated by [facility], patient is pending voluntary placement. She is medically cleared. Home medications have been ordered. No issues during my shift. Quality:[facility] Health Related Social Needs: No Data to Display Sign Out Sign Out Data: Sign Out Comment: Patient with a history of depression here with worsening thoughts of self-harm, screening exam and labs were negative is waiting for mental health evaluation. Was anxious on arrival so was given 1 mg oral Ativan. Last updated by Matt Hayward MD at 01/24/24 14:54 Sign Out Comment: Pending : voluntary inpatient placement HPI : depression + SI + plan Medically Cleared Eval'd by [facility] who recommends seeking placement Home meds ordered Last updated by Jaime Harris MD at 01/24/24 19:02 Discharge Plan Discharge Details Chief Complaint: PsychEval Primary Care Provider: Juana Saavedra ED Provider: Jaime Harris Home Meds and New Rx's Prescriptions: No Action trazodone 100 mg tablet 100 mg PO QHS quetiapine 100 mg tablet 100 mg PO QHS escitalopram oxalate [Lexapro] 20 mg Tablet 20 mg PO DAILY Qty: 4 0RF hydroxyzine HCl [Atarax] 50 mg PO TID PRN clorazepate dipotassium 7.5 mg tablet 7.5 mg PO DAILY Patient Comments: TAKE 1 TABLET BY MOUTH DAILY FOR SEVERE ANXIETY
[2024-01-24] MEDS: QUEtiapine 50 MG TAB 100 MG PO (19:48)
--- NOTE | 2024-01-24 20:20 | PDOC.MHCN_ITS ---
Date of service: 01/24/24 Time of Service: 20:20 PHQ-9 Over the last 2 weeks, how often have you been bothered by any of the following problems? 1. Little interest or pleasure in doing things: nearly every day 2. Feeling down, depressed, or hopeless: nearly every day 3. Trouble falling or staying asleep, or sleeping too much: more than half the days 4. Feeling tired or having little energy: nearly every day 5. Poor appetite or overeating: nearly every day 6. Feeling bad about yourself - or that you are a failure or have let yourself and your family down: nearly every day 7. Trouble concentrating on things, such as reading the newspaper or watching television: more than half the days 8. Moving or speaking so slowly that other people could have noticed? - Or the opposite - being so fidgety or restless that you have been moving around a lot more than usual: nearly every day 9. Thoughts that you would be better off or of hurting yourself in some way: nearly every day Total score: 25 If you checked off any problems, how difficult have these problems made it for you to do your work, take care of things at home, or get along with other people?: extremely difficult Source: Developed by Drs. Ramón Fuentes, Vaishali Mora, Edison Azevedo and colleagues, with an educational constanza from [employer]. Suicide Severity Rate CSSRS Have you wished you were or wished you could go to sleep and not wake up?: Yes Have you actually had any thoughts of killing yourself?: Yes CSSRS2 Have you been thinking about how you might do this?: Yes Have you had these thoughts and had some intention of acting on them?: Yes Have you started to work out or worked out the details of how to kill yourself? Do you intend to carry out this plan?: Yes CSSRS3 Have you ever done anything, started to do anything or prepared to do anything to end your life?: Yes CSSRS4 Was this within the past three months?: No Screening Score Total Score: 6 Screening: Positive Mental Health Emergency Note Release HS release signed:: Yes Reason for Visit The client is known to [facility]' ES and AO programs. She is currently being followed by the AO program for therapy and medication management. The client has been hospitalized before and her last was at [facility] approximately 2 years ago per her report. She was last seen on 01.17.24 and outreached today to inform her therapist, Olivia Angulo that she was in the ED waiting to be seen. In the last 2 weeks has the pt presented for ES prior to today?: Unknown Client Information Client is: Adult Outpatient Well Housed: Yes Non Suicidal Self Injury Current: No History: No Safety Risk/Harm to Self or Others Current Ideation to Harm Self or Others: Yes to self. (to hang herself) Intent: yes, has intent. Plan: yes,has a plan. History of suicide attempt: yes,history of suicide attempt reported. Details of previous suicide attempt: o.d Risk: Does risk to harm exist?: yes. Access to means: Yes. Types of Means: Other weapons and Medication. Counseling provided: Yes Risk: High Risk Duty to warn indicated: No Asssessment/Mental Status Appearance: Other (Client was covered up by a blanket so no visual observations could be made. ) Attitude: Cooperative Behavior: Unremarkable Speech: Normal Affect: Other (Client was covered up by a blanket so no visual observations could be made. ) Mood: Depressed and Anxious Thought process: Goal directed Hallucinations: No Delusions: No Attention: Unremarkable Perception: Not impaired Orientation: Fully orientated Memory: Intact Insight: Good Judgement: Good Neurovegetative Symptoms Sleep: Increase Appetitie: Increase Interests: Decrease Energy: Decrease Libido: Not applicable Substance Use: Do you use nicotine?: No Have you used substances in the last 7 days?: No Additional Issues: Assaultive/Threatening Behavior: No Medical Concerns: No Client engaged in active self harm w/weapon: No Threatening to run away: No Child reported abuse/neglect: No Domestic violence is a concern: No Extreme Psychosis or extreme behavior is present: No Impression The client is a 39-year-old, single, , female who lives with her mother in [facility]. She is unemployed despite, having a BA in Psychology as her SC has crippled her ability to function in day to day activities and functions. The client uses She/Her pronouns. The client's underrepresented categories were honored during this assessment. The client engaged in all screening tools including the CSSRS however, this clinician is not CAMS trained so that resource could not be utilized. Other resources were not explored at this time as the client has a history of not staying at the ED. If she remains at the ED overnight and the CARE Bed is available this clinician will try to refer her tot he CARE Bed. Based on history however, the CARE Bed was a resource in the past and the client did not want to stay and keeping her aat the CARE Bed voluntarily for treatment was a struggle. The voluntary placement to [facility] has not yet been sent but will be after hours. The client presented in Zone B covered by her blankets. She makes no eye contact as she has her head covered the entire assessment. Her voice is normal so this clinician could hear her clearly. She reports significant depression and a panic attack this am with chronic SI that is long standing. At this time, the client is endorsing SI with intent, self reported as 7/10 on a Likert scale and is unable to complete a safety plan. She reported that she has had SI mostly every day and could not identify any deterrents/strengths. Her PHQ-9 an CSSRS are high risk at the time of assessment. She was unable to safety plan home successfully Maybe I need inpatient. The client reports she believes she needs inpatient treatment and stated that she wants help with her OCD symptoms to get ride of the obsessions. The client is willing to stay voluntarily to seek treatment. Plan/Disposition Recommended Disposition: Hospitalization (referrals sent ) facilities contacted. Plan: The client will remain at [facility] waiting voluntary placement. Should she try to leave [facility] will outreach for a eval and safety plan if needed. Should the cleint attempt/want to leave an should be considered. Referrals were sent via post closed [facility]. Person reported agreement to plan: Yes Reports/communication Outcome discussed with: ED/Personnel
--- NOTE | 2024-01-25 06:21 | NUR.NOTE ---
Nursing Note: This RN assumed care of pt. at approx.1900 on 01/24/24.? Pt was calm and cooperative entire shift.? Pt was med compliant and slept an adequate amount of time over night with frequent safety checks.? Chest rise and fall witnessed at each observation.? Pt remains A&Ox4 and NAD.? Pt denies pain on initial assessment.? VSS.? Pt states all needs met at time of assessment.? Pt remains at [facility] awaiting proper placement.??
--- NOTE | 2024-01-25 07:11 | ED.PROG_ITS ---
Date of service: 01/25/24 Time of Service: 07:12 Medical Decision Making Patient stable throughout the night. No interventions needed. Pending voluntary placement Quality:SDOH Health Related Social Needs: No Data to Display Sign Out Sign Out Data: Sign Out Comment: Patient with a history of depression here with worsening thoughts of self-harm, screening exam and labs were negative is waiting for mental health evaluation. Was anxious on arrival so was given 1 mg oral Ativan. Last updated by Matt Hayward MD at 01/24/24 14:54 Sign Out Comment: Pending : voluntary inpatient placement HPI : depression + SI + plan Medically Cleared Eval'd by [facility] who recommends seeking placement Home meds ordered Last updated by Jaime Harris MD at 01/24/24 19:02 Discharge Plan Discharge Details Chief Complaint: PsychEval Primary Care Provider: Juana Saavedra ED Provider: [place] Home Meds and New Rx's Prescriptions: No Action trazodone 100 mg tablet 100 mg PO QHS quetiapine 100 mg tablet 100 mg PO QHS escitalopram oxalate [Lexapro] 20 mg Tablet 20 mg PO DAILY Qty: 4 0RF hydroxyzine HCl [Atarax] 50 mg PO TID PRN clorazepate dipotassium 7.5 mg tablet 7.5 mg PO DAILY Patient Comments: TAKE 1 TABLET BY MOUTH DAILY FOR SEVERE ANXIETY
[2024-01-25] MEDS: Escitalopram 20 MG TAB PO (09:05)
--- NOTE | 2024-01-25 09:34 | PDOC.CMSAFE ---
Date of service: 01/25/24 Time of Service: 09:35 Care Management Safety Plan Status Status: Voluntary Reason for Wait Reason for Wait: Inpatient Admission Safety Plan Safety Plan: VOLUNTARY FOR INPATIENT PSYCHIATRIC STABILIZATION.? Patient is appropriate in all interactions since arriving at [facility]; Pt has demonstrated appropriate coping and communication skills, has articulated his or her needs and concerns and is fully engaged during staff interactions. Patient remains voluntary at this time, [facility] reports intention to seek involuntary hold if Marylu changes her mind about voluntarily seeking treatment. Safety plan has been established with patient, and care team, to adhere to patient goals, identify restrictions based on behavioral status, address nutrition, and determine allowed personal belongings, tools for hygiene and personal care. Determine level of activity including ambulation, level of supervision, visitors, and determine privileges based on behaviors and level of engagement by pt. SAFETY PLAN: 1. Will remain on suicide precautions, in paper clothes 2. Will remain in Zone B under direct supervision of one-on-one staff at all times provided by [employer]; E[employer], DIRECTOR CARDIAC missile inspector preflight. 3. May have paper cups, plates, finger foods as well as a cardboard spoon with which to eat meals. 4. Follow [facility] Management of the Admitted Behavioral Health Patient policy. 5. Shower available in Zone B without restriction. 6. Personal belongings-soft items permitted at RN discretion. 7. Visitors-permitted at RN discretion, Mother permitted as long as Marylu is able to self regulate-for reconsideration if visits escalate Marylu-per [facility] recommendation. 8. Activities: soft cart items approved per RN discretion. 9.? Bathroom available in Zone B without restriction. 10. Phone: limited to [facility] cordless phone at RN discretion. Due to VOLUNTARY status, if patient wishes to leave [facility], staff will contact [facility] Crisis Screener ([phone]) and Airport Representative ([phone]) as soon as possible. In the event of elopement, notify [facility] Police ([phone]). Patient is currently voluntarily at [facility] and seeking inpatient admission when a bed becomes available. [facility] Frontline Exceptional Student Education Teacher will continue seeking placement. Please contact the Airport Representative ([phone]) and [facility] Exceptional Student Education Teacher ([phone]) for any needed changes in the Safety Plan. Safety plan has been provided to interdepartmental care team.
--- NOTE | 2024-01-25 09:35 | PDOC.CMPRO ---
Date of service: 01/25/24 Time of Service: 18:37 Care Management Progress Note Progress Note Text Progress Note Text: 10:30am- STACI was informed that Marylu was accepted at [facility], but that she is unsure if she wants to go to inpatient treatment, specifically at . STACI contacted CAREN Kelley, who had just arrived at [facility], and met with Marylu to discuss options. 11:45 am- After meeting and reviewing options, Allie and Marylu created a safety plan for Marylu to return home with close follow up. 1 pm- While going through discharge paperwork with RN, Marylu called her mother, whom she lives with, and her mother was not agreeable to Marylu returning home without treatment and encouraged Marylu to continue to seek inpatient treatment. CM notified CAREN Kelley, who resent referrals to [place] and [facility], who had both expressed interest in accepting Marylu today prior to her decision to discharge home. 2:30pm- Marylu was accepted at [facility], and she accepted the bed offer. STACI worked on coordinating transport. [place] and [facility] declined. [facility] agreed to transport. 3:15pm- Marylu was transported to [facility] via [facility]. STACI provided the RN to RN phone number for her RN to complete upon her discharge. She will follow up with CAREN after she completes her inpatient psychiatric treatment.
--- NOTE | 2024-01-25 10:10 | W.EDPROG ---
Date of service: 01/25/24 Time of Service: 10:10 Medical Decision Making Care was signed out by Dr. Park, please see prior documentation regarding ED course. Plan at signout was to await voluntary inpatient psychiatric treatment. [id number]??I [facility], discussed ED course, she will accept the patient in transfer Quality:SDOH Health Related Social Needs: No Data to Display Sign Out Sign Out Data: Sign Out Comment: Patient with a history of depression here with worsening thoughts of self-harm, screening exam and labs were negative is waiting for mental health evaluation. Was anxious on arrival so was given 1 mg oral Ativan. Last updated by Matt Hayward MD at 01/24/24 14:54 Sign Out Comment: Pending : voluntary inpatient placement HPI : depression + SI + plan Medically Cleared Eval'd by [facility] who recommends seeking placement Home meds ordered Last updated by Jaime Harris MD at 01/24/24 19:02 Sign Out Comment: Patient stable throughout the night. No interventions needed. Pending voluntary placement. Last updated by Edouard Park DO at 01/25/24 07:12 Discharge Plan Disposition Patient Disposition: Psychiatric Hospital/Unit Specific Psychiatric Facility: [facility] Condition: Serious Discharge Details Chief Complaint: PsychEval Clinical Impression: Suicidal ideation Primary Care Provider: Juana Saavedra ED Provider: Felice Macias Home Meds and New Rx's Prescriptions: No Action trazodone 100 mg tablet 100 mg PO QHS quetiapine 100 mg tablet 100 mg PO QHS escitalopram oxalate [Lexapro] 20 mg Tablet 20 mg PO DAILY Qty: 4 0RF hydroxyzine HCl [Atarax] 50 mg PO TID PRN clorazepate dipotassium 7.5 mg tablet 7.5 mg PO DAILY Patient Comments: TAKE 1 TABLET BY MOUTH DAILY FOR SEVERE ANXIETY
[2024-01-25 10:45] VITALS: BP 123/76; PULSE 100; TEMP 37
--- NOTE | 2024-01-25 13:59 | PDOC.MHPN2 ---
Date of service: 01/25/24 Time of Service: 13:59 Mental Health Emergency Note Release [facility] release signed:: Yes Reason for Visit The client is known to [facility]' ES and AO programs. She is currently being followed by the AO program for therapy and medication management. The client has been hospitalized before and her last was at [facility] approximately 2 years ago per her report. She was last seen on 01.17.24 and outreached today to inform her therapist, Olivia Angulo that she was in the ED waiting to be seen. This is a reassessment a the client is declining treatment at . In the last 2 weeks has the pt presented for ES prior to today?: Unknown Impression The client is a 39-year-old, single, , female who lives with her mother in [facility]. She is unemployed despite, having a BA in Psychology as her MT has crippled her ability to function in day to day activities and functions. The client uses She/Her pronouns. The client's underrepresented categories were honored during this assessment. The client engaged in all screening tools including the CSSRS however, this clinician is not CAMS trained so that resource could not be utilized. Other resources were not explored at this time as the client has a history of not staying at the ED. If she remains at the ED overnight and the CARE Bed is available this clinician will try to refer her tot he CARE Bed. Based on history however, the CARE Bed was a resource in the past and the client did not want to stay and keeping her at the CARE Bed voluntarily for treatment was a struggle. The client presents standing at nursing station conversing with nurse. She agrees to go to her room to meet privately. She minimizes her symptoms today and stated that the night in the ED was helpful and would like to go home. She stated that she did not find helpful ad they have accepted her for admission today, the last time she was there and would rather go home and see her brother who is coming to visit for Mother's Day. We worked on a safety plan and this was agreed upon until her mother told her she needed treatment. The client changed her mind about treatment. Plan/Disposition Recommended Disposition: Hospitalization facilities contacted. Plan: Because she was also accepted by [facility] and this clinician outreached to both. [facility] accepted first so she will be transported there on 01.25.24. Person reported agreement to plan: Yes Facilities contacted if Applicable [facility] Accepted, Accepted/transfer pending. Information Sent to [place]: Referral, Reports/communication Outcome discussed with: ED/Personnel
--- NOTE | 2024-01-26 17:38 | NUR.NOTE ---
Patricia Sinha, [facility] [place] asking whether or not this patient needed placement. Accessed chart to determine disposition, she went home. Nursing Note:
== END 2024-01-25 15:30 | disposition home or self-care (01) ==
PROVIDERS: Emergency Medicine; Emergency Provider Student in an Organized Health Care Education/Training Program; PCP Nurse Practitioner Family
DX: R45.851 Suicidal ideations (principal); F32.A Depression, unspecified; F41.9 Anxiety disorder, unspecified
CPT/HCPCS: 00123; 36415; 80053; 80307; 81025; 96127; 99285; 80320; 80329; 81003; 81015; 84443; 85025

== ENCOUNTER 2024-05-29 17:54 | Emergency (ER) | payer MEDICAID, SELFPAY ==
[2024-05-29 17:55] VITALS: BP 124/86; PULSE 88; RESP 16; TEMP 37; O2SAT 98
--- NOTE | 2024-05-29 18:32 | ED.GENADUL_ITS ---
Discharge Plan Discharge Details Chief Complaint: PsychEval Primary Care Provider: Juana Saavedra ED Provider: Bereket Shepard Home Meds and New Rx's Prescriptions: No Action trazodone 100 mg tablet 100 mg PO QHS quetiapine 100 mg tablet 100 mg PO QHS escitalopram oxalate [Lexapro] 20 mg Tablet 20 mg PO DAILY Qty: 4 0RF HPI General Date/Time Provider Initiated Documentation: 05/29/24 17:55 . HPI Narrative: 39-year-old female history of OCD, depression, presents with increased anxiety obsessional thoughts and suicidal ideation. Patient denies a definitive plan. No thoughts of harming others. Endorses worsening ruminations about her past. Related Data Home Medications ?Medication ?Instructions ?Recorded ?Confirmed escitalopram oxalate 20 mg tablet 20 mg PO DAILY #4 tabs 06/27/23 05/29/24 (Lexapro) quetiapine 100 mg tablet 100 mg PO QHS 08/29/23 05/29/24 trazodone 100 mg tablet 100 mg PO QHS 08/29/23 05/29/24 Previous Rx's ?Medication ?Instructions ?Recorded escitalopram oxalate 20 mg tablet 20 mg PO DAILY #4 tabs 06/27/23 (Lexapro) Allergies Allergy/AdvReac Type Severity Reaction Status Date / Time cats Allergy Mild Other (See Uncoded 05/29/24 17:59 Comment) General Stated Complaint: PsychEval JASKARAN: 2 Exam Narrative Exam Narrative: Calm cooperative alert Moist membranes tongue secretions Normal voice no respiratory distress No external signs of trauma Moving all extremities without deficit Withdrawn appears anxious endorses SI Course Vital Signs Vital signs: Vital Signs Temperature 37.0 C 05/29/24 17:55 Pulse 88 05/29/24 17:55 Respiratory Rate 16 05/29/24 17:55 Blood Pressure 124/86 05/29/24 17:55 Pulse Oximetry 98 05/29/24 17:55 Temperature 37.0 C 05/29/24 17:55 Pulse 88 05/29/24 17:55 Respiratory Rate 16 05/29/24 17:55 Respiratory Effort Normal 05/29/24 18:01 Blood Pressure 124/86 05/29/24 17:55 Pulse Oximetry 98 05/29/24 17:55 Oxygen Delivery Method Room Air 05/29/24 17:55 Oxygen Flow Rate 0 05/29/24 17:55 Pain Level 0 05/29/24 17:55 Medical Decision Making 39-year-old female history of OCD, depression presents with worsening anxiety and obsessional thoughts regarding her past, increasing suicidal ideations without definitive plan, no homicidal ideations, patient is afebrile nontoxic neurologically intact no signs of trauma or intoxication no systemic signs of illness to suggest infection or electrolyte derangement no neurologic deficit to suggest stroke or intracranial mass, patient endorses feeling safe at home. Was referred in at the request of her mother and her therapist. I have reached out to [facility] services for evaluation. Urine test and urine drug screen has been obtained. Patient has been moved to zone B for her comfort and safety. Awaiting recommendations by [facility]. Patient amenable to anxiolysis have ordered 0.5 mg clonazepam, close reassessment 22: 38 patient resting comfortably no acute distress. Patient has been evaluated by [facility] [employer] and deemed appropriate for inpatient treatment, they are currently working on placement. Patient is here voluntarily. Medically cleared Quality:SDOH Health Related Social Needs: No Data to Display PFSH All Active Problems (Updated 02/25/24 @ 00:07 by DEBORAH ESPARZA) OCD (obsessive compulsive disorder) (Acute) MDD (major depressive disorder) (Chronic) DVT prophylaxis (Acute) Suicidal ideation (Acute) Medical History (Updated 02/25/24 @ 00:07 by DEBORAH ESPARZA) Discharge planning issues Sudden-onset sensorineural hearing loss Menorrhagia with irregular cycle Tinnitus of left ear Borderline personality disorder Panic anxiety syndrome Anxiety and depression Family History Mother No problems noted. Father , 52 Cancer Prostate Brother No problems noted. Social History Smoking/Tobacco Use Status: Never Second Hand Exposure: No Smoking risk assessment performed?: Yes Alcohol Intake: former Drug use: Never Substance use type: does not use Caregiver/Support person: No Household members: other Details: Mother Housing: house Do you need help understanding health information?: Never Pets and animals: No Sexually active: No Do you think of yourself as: straight/heterosexual Current gender identity: female What is your relationship status?: never How often do you talk on the phone with friends or family?: decline to answer How often do you get together with friends or relatives?: decline to answer How often do you attend jainism or cheondoism services?: decline to answer Do you belong to any clubs or organized social groups?: no Panel score (0-1 are the most socially isolated patients): 0 What type of physical activity do you participate in: none Frequency: does not exercise Keerthi/Pentecostal: No preference Special keerthi needs: No Seatbelt use: always Drive intox or ride w/intox seasonal driver: No Do you feel safe at home: Yes Do you feel safe in your relationship?: Yes Additional Social history: lives with mother mental health
[2024-05-29 18:37] LABS: *AMPHETAMINES SCREEN URINE Negative (Negative); *BARBITURATES SCREEN URINE Negative (Negative); *BENZODIAZEPINES SCREEN URINE Negative (Negative); Cannabinoids THC Negative (Negative); Cocaine Screen,Urine Negative (Negative); METHADONE URINE SCREEN Negative (Negative); OPIATES URINE SCREEN Negative (Negative)
[2024-05-29 18:39] LABS: Tricyclic Antidepressants Negative (Negative)
--- NOTE | 2024-05-29 18:58 | PDOC.MHCN_ITS ---
Date of service: 05/29/24 Time of Service: 18:45 PHQ-9 Over the last 2 weeks, how often have you been bothered by any of the following problems? 1. Little interest or pleasure in doing things: nearly every day 2. Feeling down, depressed, or hopeless: nearly every day 3. Trouble falling or staying asleep, or sleeping too much: nearly every day 4. Feeling tired or having little energy: more than half the days 5. Poor appetite or overeating: more than half the days 6. Feeling bad about yourself - or that you are a failure or have let yourself and your family down: nearly every day 7. Trouble concentrating on things, such as reading the newspaper or watching television: nearly every day 8. Moving or speaking so slowly that other people could have noticed? - Or the opposite - being so fidgety or restless that you have been moving around a lot more than usual: nearly every day 9. Thoughts that you would be better off or of hurting yourself in some way: nearly every day Total score: 25 If you checked off any problems, how difficult have these problems made it for you to do your work, take care of things at home, or get along with other people?: extremely difficult PHQ-9 Results: Positive Source: Developed by Drs. Ramón Fuentes, Vaishali Mora, Edison Azevedo and colleagues, with an educational constanza from [employer]. Suicide Severity Rate CSSRS Have you wished you were or wished you could go to sleep and not wake up?: Yes Have you actually had any thoughts of killing yourself?: Yes CSSRS2 Have you been thinking about how you might do this?: Yes Have you had these thoughts and had some intention of acting on them?: Yes Have you started to work out or worked out the details of how to kill yourself? Do you intend to carry out this plan?: No CSSRS3 Have you ever done anything, started to do anything or prepared to do anything to end your life?: No CSSRS4 Was this within the past three months?: No Screening Score Total Score: 4 Screening: Positive Mental Health Emergency Note Release [facility] release signed:: Yes Reason for Visit Marylu is known to [facility] and followed by therapist Olivia Angulo. Marylu presents today due to endorsing suicidal ideation with plan and intent. In the last 2 weeks has the pt presented for ES prior to today?: Unknown Client Information Client is: Adult Outpatient Well Housed: Yes Non Suicidal Self Injury Current: No History: No Safety Risk/Harm to Self or Others Current Ideation to Harm Self or Others: Yes to self. (Marylu reports she has thought about ending her life via overdose on her prescriptions.) Intent: yes, has intent. Plan: yes,has a plan. History of suicide attempt: No history of suicide attempt reported Risk: Does risk to harm exist?: No Duty to warn indicated: No Asssessment/Mental Status Appearance: Unremarkable Attitude: Cooperative Behavior: Unremarkable Speech: Pressured Affect: Cogruent with mood Mood: Stressed and Anxious Thought process: Unremarkable Hallucinations: No evidence Delusions: yes, ( Marylu continued to refer to herself as delusional throughout the assessment, but could not disclose specific delusions to this screen writer. ) Other Attention: Unremarkable Perception: Not impaired Orientation: Fully orientated Memory: Intact Insight: Fair Judgement: Fair Neurovegetative Symptoms Sleep: Increase Appetitie: Decrease Interests: Decrease Energy: Decrease Libido: Not applicable Substance Use: Do you use nicotine?: No Have you used substances in the last 7 days?: No Additional Issues: Assaultive/Threatening Behavior: No Medical Concerns: No Client engaged in active self harm w/weapon: No Threatening to run away: No Child reported abuse/neglect: No Voluntarily presenting for services: Yes Domestic violence is a concern: No Extreme Psychosis or extreme behavior is present: No Impression Marylu presents to this screen writer sitting on her hospital bed. Marylu presents as fidgety, often seen playing with her hair. Marylu has pressured speech and shows fair insight and judgment towards her current situation. Marylu reports that she talked to her therapist on the phone today and she referred her to the hospital. Marylu reports that her Bryson does not work correctly and she feels that she is delusional. Throughout this assessment Marylu continued to refer to herself as delusional but could not explain why or tell this screen writer what her delusions are. Marylu reports thinking about ending her life via overdose on her prescription medications. Marylu reports she has been thinking about this almost daily and feels she has intent to do it, but has not acted on it and has never attempted to end her life in the past. Marylu reports that she has felt this way before though. Marylu reports she has been sleeping too much and not eating well. Marylu described her mood recently as down and depressed. Marylu reports she has been taking all of her medications as prescribed and she is currently diagnosed with OCD and a personality disorder. Per her chart she is diagnosed with OCD, BPD, MDD, and agoraphobia. At this point in the assessment, Marylu was presenting as overwhelmed, displaying delayed responses and fidgeting more than at the beginning. Marylu reports she wants inpatient treatment and could not answer anymore questions at this time. This screen writer ended the assessment to not escalate Marylu and agrees Marylu is a client in need of inpatient care at this time. Resources Reos[employer]ces reviewed and given:: Community therapist Plan/Disposition Recommended Disposition: Hospitalization (Referrals will be sent once documentation is completed. ) facilities contacted. Plan: Marylu will remain at [facility] until voluntary treatment can be found. Person reported agreement to plan: Yes Reports/communication Outcome discussed with: ED/Personnel
[2024-05-29] MEDS: clonazePAM 0.5 MG TAB PO (20:17)
[2024-05-29 22:13] LABS: Bilirubin Negative (Negative); Blood Negative (Negative); Clarity Sl Cloudy (Clear); Glucose Negative (Negative); Ketones 15 mg/dL (Negative); Leukocyte Esterase Moderate (Negative); Nitrite Negative (Negative); Urobilinogen 0.2 mg/dL (Up to 0.2)
[2024-05-29 22:16] LABS: Abs Immature Grans 0.02 10^3/uL (0.0-0.06); Absolute Eosinophil Count 0.11 10^3/uL (0.0-0.7); Absolute Lymphocyte Count 2.77 10^3/uL (1.2-3.4); Absolute Monocyte Count 0.73 10^3/uL (0.1-0.8); Absolute Neutrophil Count 3.79 10^3/uL (1.2-6.7); Basophils % 1.3 %; Eosinophils % 1.5 %; HGB 9.8 g/dL (11.2-15.7); Immature Grans % 0.3 %; Lymphocytes % 36.8 %; MCH 21.2 pg (27.0-33.0); MCHC 29.7 % (32.0-36.0); MCV 71 fL (80-95); MPV 9.4 fL (8.0-11.0); Monocytes % 9.7 %; Neutrophils % 50.4 %; Platelet Count 304 10^3/uL (130-400); RBC 4.62 10^6/uL (3.93-5.22); RDW 16.5 % (11.7-14.6); RDW-SD 42.6 fL; WBC 7.52 10^3/uL (4.4-10.8)
[2024-05-29 22:21] LABS: Bacteria Few HPF (Negative); C & S Indicated? No/Sq. Contamination; Casts Negative LPF (Negative); Crystals Negative HPF (Negative); Epithelial Cells Many HPF (Negative); Mucus Negative (Negative); RBC Negative HPF (0-2)
[2024-05-29 22:27] LABS: Hypochromasia 2+; Microcytosis 2+
[2024-05-29 22:29] LABS: ALT 21 U/L (14-59); AST 14 U/L (15-37); Albumin 4.3 g/dL (3.4-5.0); Alkaline Phosphatase 41 U/L (46-116); Anion Gap 7.4 mmol/L (3-11); BUN 6 mg/dL (7-18); Bilirubin, Total 0.51 mg/dL (0.2-1.0); CO2 28.6 mmol/L (21.0-32.0); CREATININE 0.7 mg/dL (0.55-1.02); Calcium 9.3 mg/dL (8.5-10.1); Chloride 102 mmol/L (98-107); Estimated GFR 114.16 (mL/min/1.73m2); Glucose 85 mg/dL (74-106); Potassium 3.4 mmol/L (3.5-5.1); Sodium 138 mmol/L (136-145); Total Protein 7.8 g/dL (6.4-8.2)
[2024-05-30 08:00] VITALS: BP 106/66; PULSE 77; RESP 16; TEMP 36.6; O2SAT 98
[2024-05-30] MEDS: Escitalopram 20 MG TAB PO (08:19)
--- NOTE | 2024-05-30 09:11 | ED.PROG_ITS ---
Date of service: 05/30/24 Time of Service: 08:00 Medical Decision Making In brief, this is a 39-year-old female patient boarding in our emergency department with suicidal ideation without intent. She is voluntary, has been medically cleared, and has not required any medications for chemical or physical restraint. She is awaiting final placement by [facility], was calm, comfortable, and hemodynamically appropriate. She has been ambulatory and tolerating p.o. intake. The patient was accepted at [facility], and I provided a doc to doc report, and they were transferred from this department by EMS. She remained hemodynamically appropriate, comfortable, and without acute change in status while under my care. Vinita Leal MD Quality:[facility] Health Related Social Needs: No Data to Display Sign Out Sign Out Data: Sign Out Comment: depression, OCD, SI without plan; evaluated by [facility], here for voluntarily, awaiting placement Last updated by Bereket Shepard MD at 05/29/24 22:51 Sign Out Comment: Patient stable throughout the night, no interventions needed. Voluntary and awaiting placement at this time. Last updated by Edouard Park DO at 05/30/24 07:40 Discharge Plan Discharge Details Chief Complaint: PsychEval Primary Care Provider: Juana Saavedra ED Provider: Vinita Leal Home Meds and New Rx's Prescriptions: No Action trazodone 100 mg tablet 100 mg PO QHS quetiapine 100 mg tablet 100 mg PO QHS escitalopram oxalate [Lexapro] 20 mg Tablet 20 mg PO DAILY Qty: 4 0RF
== END 2024-05-30 11:15 ==
PROVIDERS: Emergency Medicine; Emergency Provider Emergency Medicine; PCP Nurse Practitioner Family
DX: F41.1 Generalized anxiety disorder (principal); R45.851 Suicidal ideations
CPT/HCPCS: 00123; 80053; 80307; 81025; 96127; 99285; 81003; 81015; 85025

== ENCOUNTER 2024-07-04 20:02 | Emergency (ER) | payer MEDICAID, SELFPAY ==
[2024-07-04 20:07] VITALS: BP 163/107; PULSE 82; RESP 16; TEMP 36.8; O2SAT 98
[2024-07-04] MEDS: clonazePAM 0.5 MG TAB PO (20:24)
--- NOTE | 2024-07-04 20:36 | ED.GENADUL_ITS ---
Discharge Plan Discharge Details Chief Complaint: PsychEval Primary Care Provider: Juana Saavedra ED Provider: Bereket Shepard Home Meds and New Rx's Prescriptions: No Action trazodone 100 mg tablet 100 mg PO QHS escitalopram oxalate 10 mg tablet 10 mg PO DAILY Rx Instructions: per [place] discharge ferrous sulfate [FeroSul] 325 mg (65 mg iron) tablet 325 mg PO DAILY Rx Instructions: per [place] discharge escitalopram oxalate 20 mg tablet 20 mg PO DAILY Rx Instructions: per [place] discharge quetiapine [Seroquel XR] 150 mg tablet extended release 24 hr 150 mg PO DAILY Rx Instructions: per [place] discharge hydroxyzine pamoate 50 mg capsule 50 mg PO QID PRN Rx Instructions: per [place] discharge trazodone 50 mg tablet 25 mg PO Q6H PRN PRN Rx Instructions: per [place] discharge HPI General Date/Time Provider Initiated Documentation: 07/04/24 20:13 . HPI Narrative: 39-year-old female history of OCD depression presents endorsing symptoms of panic attack patient denies any specific trigger at this time however has had intermittent thoughts of harming herself. Patient also expressed to me that she is worried that she may hurt her mother both emotionally and physically. Patient has no definitive plan. Patient denies self injurious behavior this evening. Patient endorses inducing vomiting. Related Data Home Medications ?Medication ?Instructions ?Recorded ?Confirmed trazodone 100 mg tablet 100 mg PO QHS 08/29/23 07/04/24 escitalopram oxalate 10 mg tablet 10 mg PO DAILY 06/19/24 07/04/24 escitalopram oxalate 20 mg tablet 20 mg PO DAILY 06/19/24 07/04/24 ferrous sulfate 325 mg (65 mg 325 mg PO DAILY 06/19/24 07/04/24 iron) tablet (FeroSul) hydroxyzine pamoate 50 mg capsule 50 mg PO QID PRN 06/19/24 07/04/24 quetiapine 150 mg tablet,extended 150 mg PO DAILY 06/19/24 07/04/24 release 24 hr (Seroquel XR) trazodone 50 mg tablet 25 mg PO Q6H PRN PRN 06/19/24 07/04/24 Allergies Allergy/AdvReac Type Severity Reaction Status Date / Time cats Allergy Mild Other (See Uncoded 07/04/24 20:25 Comment) General Stated Complaint: PsychEval JASKARAN: 2 Exam Narrative Exam Narrative: Alert interactive although anxious appearing Moist mucous membranes tolerating secretions normal voice no stridor Speaking full sentences no respiratory distress no tachypnea Alert interactive moving all extremities without deficit No external signs of trauma Patient endorses suicidal ideations as well as thoughts of harm to others. No evidence of audiovisual hallucinations. Report from EMS indicates possible delusional thinking with thoughts that people are coming to get her Moving all extremities no deficits ambulatory without assistance normal speech no aphasia, no ataxia Course Vital Signs Vital signs: Vital Signs Temperature 36.8 C 07/04/24 20:07 Pulse 82 07/04/24 20:07 Respiratory Rate 16 07/04/24 20:07 Blood Pressure 163/107 H 07/04/24 20:07 Pulse Oximetry 98 07/04/24 20:07 Temperature 36.8 C 07/04/24 20:07 Temperature Source Temporal Artery Scan 07/04/24 20:07 Pulse 82 07/04/24 20:07 Respiratory Rate 16 07/04/24 20:07 Respiratory Effort Normal 07/04/24 20:12 Blood Pressure 163/107 H 07/04/24 20:07 Blood Pressure Position Sitting 07/04/24 20:07 Pulse Oximetry 98 07/04/24 20:07 Oxygen Delivery Method Room Air 07/04/24 20:07 Oxygen Flow Rate 0 07/04/24 20:07 Pain Level 10 07/04/24 20:07 Medical Decision Making 39-year-old female history of anxiety, depression, OCD, presents endorsing symptoms of panic, endorses delusional thinking to EMS in the form of believing people are coming to get her, to me patient expresses feeling safe at home however she is having thoughts of harming her mother emotionally and physically, she was also having thoughts of harming herself. No evidence of audiovisual hallucinations, patient is afebrile nontoxic hypertension likely related to anxiety. No evidence of trauma or intoxication. Low suspicion for infectious process or primary cardiopulmonary process. Given suicidal ideation thoughts of self-harm possible delusions and active anxiety patient will be best served undergoing psychiatric screening examination by [facility] human services. Patient amenable to taking clonazepam p.o. for anxiolysis. Patient medically cleared from history and physical also used SMART form. Patient will be moved to zone B for close observation while awaiting screening examination. 21: 59 patient was comfortably no acute distress. Patient evaluated by [facility] human services currently denying SI and HI to them at this time. Given discordant histories from multiple providers will obtain telemetry psychiatric evaluation to ensure safe disposition of patient. Will observe overnight in zone B while awaiting consultation. Quality:SDOH Health Related Social Needs: No Data to Display PFSH All Active Problems (Updated 02/25/24 @ 00:07 by DEBORAH ESPARZA) OCD (obsessive compulsive disorder) (Acute) MDD (major depressive disorder) (Chronic) DVT prophylaxis (Acute) Suicidal ideation (Acute) Medical History (Updated 02/25/24 @ 00:07 by DEBORAH ESPARZA) Discharge planning issues Sudden-onset sensorineural hearing loss Menorrhagia with irregular cycle Tinnitus of left ear Borderline personality disorder Panic anxiety syndrome Anxiety and depression Family History Mother No problems noted. Father , 52 Cancer Prostate Brother No problems noted. Social History Smoking/Tobacco Use Status: Never Second Hand Exposure: No Smoking risk assessment performed?: Yes Alcohol Intake: former Drug use: Never Substance use type: does not use Caregiver/Support person: No Household members: other Details: Mother Housing: house Do you need help understanding health information?: Never Pets and animals: No Sexually active: No Do you think of yourself as: straight/heterosexual Current gender identity: female What is your relationship status?: never How often do you talk on the phone with friends or family?: decline to answer How often do you get together with friends or relatives?: decline to answer How often do you attend mormon or yarsanism services?: decline to answer Do you belong to any clubs or organized social groups?: no Panel score (0-1 are the most socially isolated patients): 0 What type of physical activity do you participate in: none Frequency: does not exercise Keerthi/Lutheran: No preference Special keerthi needs: No Seatbelt use: always Drive intox or ride w/intox hole digger truck driver: No Do you feel safe at home: Yes Do you feel safe in your relationship?: Yes Additional Social history: lives with mother [facility]
[2024-07-04 22:04] LABS: *AMPHETAMINES SCREEN URINE Negative (Negative); *BARBITURATES SCREEN URINE Negative (Negative); *BENZODIAZEPINES SCREEN URINE Negative (Negative); Cannabinoids THC Negative (Negative); Cocaine Screen,Urine Negative (Negative); METHADONE URINE SCREEN Negative (Negative); OPIATES URINE SCREEN Negative (Negative)
[2024-07-04 22:09] LABS: Tricyclic Antidepressants Negative (Negative)
--- NOTE | 2024-07-04 23:33 | W.EDPROG ---
Date of service: 07/04/24 Time of Service: 23:33 Medical Decision Making Discussed case with telemetry psychiatrist Dr. Hernandez who agrees the patient would benefit from inpatient placement given psychiatric distress reported suicidal ideations as well as thoughts of harming others. Patient amenable to voluntary placement at this time. Quality:[facility] Health Related Social Needs: No Data to Display Discharge Plan Discharge Details Chief Complaint: PsychEval Primary Care Provider: Juana Saavedra ED Provider: Bereket Shepard Home Meds and New Rx's Prescriptions: No Action trazodone 100 mg tablet 100 mg PO QHS escitalopram oxalate 10 mg tablet 10 mg PO DAILY Rx Instructions: per [place] discharge ferrous sulfate [FeroSul] 325 mg (65 mg iron) tablet 325 mg PO DAILY Rx Instructions: per [place] discharge escitalopram oxalate 20 mg tablet 20 mg PO DAILY Rx Instructions: per [place] discharge quetiapine [Seroquel XR] 150 mg tablet extended release 24 hr 150 mg PO DAILY Rx Instructions: per [place] discharge hydroxyzine pamoate 50 mg capsule 50 mg PO QID PRN Rx Instructions: per [place] discharge trazodone 50 mg tablet 25 mg PO Q6H PRN PRN Rx Instructions: per [place] discharge
--- NOTE | 2024-07-04 23:46 | PSYCO_ITS ---
Date of service: 07/04/24 Time of Service: 22:00 Summary Note PSYCHIATRY CONSULT NOTE: INITIAL EVALUATION Date/Time:?07/04/2024 11:44:55 PM Name:Frederic Huddleston :?1985 Location of the patient:?[facility] ED Consulting Array Clinician:?David Shields Location of the clinician:?[place] Length of Consult:?50 minutes SUMMARY 39-year-old female, with history of anxiety disorder, PTSD, depressive disorder, history of suicidal ideation, history of psychiatric hospitalization, with no current excessive drug use, no history of violent behavior, arrived via EMS alerted by family for suicidal ideation, anxiety, depression. Patient is at elevated risk of danger to self. Patient presently meets criteria for inpatient psychiatric hospitalization. Working Diagnoses:? F41.1 Generalized anxiety disorder ; F42 Obsessive- compulsive disorder; F43.12 Post-traumatic stress disorder, chronic Rule Out Diagnoses:?F33.3 Major depressive disorder; recurrent; severe with psychotic symptoms CPT Codes:?97394 - Psychiatric Diagnostic Evaluation with Medical Services PLAN Disposition:?Voluntary admission when medically stable. Patient understands recommendation for psychiatric admission and consents. Re-consult psychiatry/screening if patient requests discharge. Observation level ? Psychiatric 1:1 needed??Q15 checks Work-up:? Pharmacological:? * -Continue home medications. -Use clonazepam 0.5mg q8hrs PRN for anxiety and panic like episodes. * Is patient psychotic? - No; * Informed consent: Discussed risks and benefits of the above recommended psychiatric medications with patient, who demonstrated understanding and gave express informed consent to take the above medications as documented. Follow up needed while in the hospital??none Other:? Discussed plan with onsite coding team lead:?Yes - Dr. Yee HISTORY This evaluation was conducted remotely with the assistance of onsite staff via HIPAA-compliant video call. Patient consented to proceed with the telehealth visit. Requested by:?MD Nakia Sources of information:?Patient, medical record History of Present Illness:?39-year-old female, living with family, single, unemployed, with history of anxiety disorder, PTSD, depressive disorder, history of suicidal ideation, history of psychiatric hospitalization, with no current excessive drug use, no history of violent behavior, arrived via EMS alerted by family for suicidal ideation, anxiety, depression. Patient has past high utilization of hospital services. UDS negative, Alcohol undetectable. In the hospital, patient has been in behavioral control with no reported issues. She has been in therapy and has been working on processing some past traumatic episodes, triggering anxiety and panic like episodes, thoughts of harming hersel f (without plan) and thinks that she has been emotionally abusive towards her mother. She feels like a burden on her mother and wants to improve her relationship with her. She denied any active thoughts to harm her mother. She is alert and oriented, denied any hallucinations at this time but admits to feeling paranoid that people are watching her and might try to harm her. She was admitted last month and her quetiapine was increased which has helped her but it seems some past emotions were triggered making her anxiety worse. She is agreeable to be admitted on a voluntary basis but requested to not be transferred to [facility]. She denied any substance abuse or ongoing legal problems.. Collateral ContactedNo-- patient meets criteria for inpatient hospitalization. PSYCHIATRIC REVIEW OF SYSTEMS (symptoms in past two weeks) Pertinent Positives:?depressed mood/anhedonia/hopelessness/anxiety/panic attacks Pertinent Negatives:?no irritability/no aggressive behavior/no agitation PSYCHIATRIC HISTORY Past Psychiatric Diagnoses/Problems:?anxiety disorder, PTSD, depressive disorder Psychiatric Treatment:?Hospitalizations:?psychiatric hospitalization, 05/31/2024 for similar presentation ???Other Past treatment:?medication management ???Current treatment:?medication management; treatment adherent Drug/Alcohol History ???Current excessive drug/alcohol use:?none ???Past excessive drug/alcohol use:?none ???Drug/alcohol use comment:?Treatment:?none ???Withdrawal symptoms:?none ???UDS results:?UDS negative ???BAL results:?undetectable ???Active withdrawal Protocol:? Stressors:?family turmoil/chaos, perceived burden on others, exacerbation of mental illness Trauma:?emotional/mental abuse, unspecified past trauma Family Psychiatric History:?none HEALTH HISTORY Medical Problems:?has been trying to induce emesis to relieve her anxiety ? DEMOGRAPHICS/SOCIAL HISTORY Gender:?female Living Situation:?living with family Relationship Status:?single Education:?some college Employment:?unemployed Social Support Network:?supportive social network of family or friends Legal History:?none Special Considerations:?none RISK EVALUATION Suicidality/self-injury:?Yes suicidal ideation Primary Suicide Screening (PSS-3) 1. In the past two weeks, have you felt down, depressed, or hopeless??YES 2. In the past two weeks, have you had thoughts of killing yourself??YES 3. In your lifetime, have you ever attempted to kill yourself??NO 3a. Within the past 6 months??NO ESS-6 Secondary Screen ( If #2 is yes or #3a is yes within the past 6 months, then complete secondary screen) 1. Positive on PSS-3 questions 2 & 3 ? active suicidal ideation with a past attempt??NO 2. Have you been thinking about how you might kill yourself??NO 3. Have you had some intention of acting on your thoughts??NO 4. Lifetime psychiatric hospitalization??YES 5. Has drinking or substance abuse ever been a problem for you??NO 6. Current irritability, agitation, or aggression??NO PSS-3/ESS-6 Secondary Screen Scoring:?Mild PSS-3/ESS-6 Scoring Interpretation Legend PSS-3 screen incomplete [Blank PSS-3 questions #2 OR #3a] PSS-3 screen unable to assess [Unable to Assess responses on PSS-3 questions #2 AND #3a] Mild [No current attempt AND No suicide plan or intent AND Score (0-2)] Moderate [No current attempt AND Active suicidal ideation with plan or intent (not both) OR Score (3-4)] Severe [Current attempt OR Suicide plan and intent OR Score (5-6)] HI/Violence/Property Destruction:?no history of violent/aggressive behavior Access to Firearms:?none Grave disability/Poor self-care:?no Psychosis:?No Protective Factors:?good frustration tolerance; identifies reasons for living; responsibility to children or others; future orientation High Utilization Criteria:?>=2 inpatient psych admissions in the past 6 months Signs of Secondary Gain:?none MENTAL STATUS EXAM Appearance and Attire:? Good eye contact Psychomotor agitation:?restless Attitude and behavior:? Cooperative, Restless Speech:? No abnormality Mood:? Depressed, Anxious Affect:? Constricted Thought Process:? Linear, Logical Thought content:? Suicidal ideation, No homicidal ideation, Paranoia, intermit tent SI, no intent Perception:? No hallucinations Intelligence:? Average Abstraction:? Appropriate Language:? No abnormality Orientation:? Oriented x 4 Sensorium:? Normal Knowledge:? Appropriate for education and socioeconomic status Memory:? Intact Insight:? Appropriate Judgment:? Appropriate SUMMARY RISK ASSESSMENT Current Suicide Risk Elevated??PSS-3/ESS-6 Scoring: Mild? Current Violence Risk Elevated??No Issues with ability to care for self.?No SAFE-T Risk Factors Suicidal Behavior:? ? History of prior SI Current/Past Psychiatric Disorders:? ?Mood disorders ? History of inpatient hospitalization ? PTSD [place] Symptoms:? ? Anhedonia ? Hopelessness ? Anxiety/Panic Precipitants/Stressors/Interpersonal/Triggers:? ? Family turmoil/chaos ? Perceived burden on others Treatment:? ? Medication management Protective Factors Internal:? ? Identifies reasons for living ? Frustration tolerance External:? ? Supportive social network of family or friends ? Responsibility to children/others
--- NOTE | 2024-07-05 | W.EDPROG ---
Date of service: 07/05/24 Time of Service: 00:00 Medical Decision Making This patient was signed out to me. Please see previous notes for H&P and initial eval. In brief, 39yo F with OCD and PTDS presenting with anxiety, SI, HI. Evaluated by telepsych; pending voluntary inpatient placement. Home meds ordered. Overnight no acute events. Will be signed out to oncoming physician, plan remains as above. Quality:SDOH Health Related Social Needs: No Data to Display Sign Out Sign Out Data: Sign Out Comment: SI, HI, [facility] and tele psych consult obtained, recommending placement. Voluntary at the moment Last updated by Bereket Shepard MD at 07/04/24 23:56 Discharge Plan Discharge Details Chief Complaint: PsychEval Primary Care Provider: Juana Saavedra ED Provider: Shilpa Flores Home Meds and New Rx's Prescriptions: No Action trazodone 100 mg tablet 100 mg PO QHS escitalopram oxalate 10 mg tablet 10 mg PO DAILY Rx Instructions: per [place] discharge ferrous sulfate [FeroSul] 325 mg (65 mg iron) tablet 325 mg PO DAILY Rx Instructions: per [place] discharge escitalopram oxalate 20 mg tablet 20 mg PO DAILY Rx Instructions: per [place] discharge quetiapine [Seroquel XR] 150 mg tablet extended release 24 hr 150 mg PO DAILY Rx Instructions: per [place] discharge hydroxyzine pamoate 50 mg capsule 50 mg PO QID PRN Rx Instructions: per [place] discharge trazodone 50 mg tablet 25 mg PO Q6H PRN PRN Rx Instructions: per [place] discharge
[2024-07-05] MEDS: traZODone 50 MG TAB 25 MG PO ×2 (02:01→08:17)
--- NOTE | 2024-07-05 07:13 | W.EDPROG ---
Date of service: 07/05/24 Time of Service: 07:14 Medical Decision Making In brief, this is a 39-year-old female patient presenting for evaluation of suicidal ideation and increased anxiety in the setting of the history of OCD/PTSD and depression. She is voluntary, medically cleared, and awaiting final placement by crisis. She has been calm and cooperative, and has not required any chemical or physical restraints. On my reassessment, the patient remains with some anxiety, states that her suicidal ideation is improving, endorsed a sensation of out of body delusions this morning during the hide for anxiety which improved after home trazodone and as needed hydroxyzine. The patient did not endorse wanting to leave the hospital, but following discussion with social work is amenable to staying for placement. She remained hemodynamically appropriate and otherwise without acute concerns while under my care, and was signed out to the oncoming provider prior to final placement. Vinita Leal MD Medical Records Medical records reviewed: Yes I reviewed the patient's medical records. Lab Data Lab results reviewed: Yes I reviewed the patient's lab results. Quality:[facility] Health Related Social Needs: No Data to Display Sign Out Sign Out Data: Sign Out Comment: SI, HI, NKHS and tele psych consult obtained, recommending placement. Voluntary at the moment Last updated by Bereket Shepard MD at 07/04/24 23:56 Sign Out Comment: PTSD, OCD, here with SI/HI, pending voluntary placement. May meet involuntary criteria should she wish to leave. Last updated by Shilpa Flores MD at 07/05/24 07:04 Discharge Plan Discharge Details Chief Complaint: PsychEval Primary Care Provider: Juana Saavedra ED Provider: Vinita Leal Home Meds and New Rx's Prescriptions: No Action trazodone 100 mg tablet 100 mg PO QHS escitalopram oxalate 10 mg tablet 10 mg PO DAILY Rx Instructions: per [place] discharge ferrous sulfate [FeroSul] 325 mg (65 mg iron) tablet 325 mg PO DAILY Rx Instructions: per [place] discharge escitalopram oxalate 20 mg tablet 20 mg PO DAILY Rx Instructions: per [place] discharge quetiapine [Seroquel XR] 150 mg tablet extended release 24 hr 150 mg PO DAILY Rx Instructions: per [place] discharge hydroxyzine pamoate 50 mg capsule 50 mg PO QID PRN Rx Instructions: per [place] discharge trazodone 50 mg tablet 25 mg PO Q6H PRN PRN Rx Instructions: per [facility]
[2024-07-05] MEDS: hydrOXYzine PAMOATE 25 MG CAP 50 MG PO ×3 (07:27→19:46)
[2024-07-05 08:11] VITALS: BP 95/66; PULSE 133; RESP 20; TEMP 36.7; O2SAT 100
[2024-07-05] MEDS: Citalopram 20 MG TAB PO (08:46)
[2024-07-05] MEDS: Ferrous Sulfate 325 MG TAB PO (08:47)
--- NOTE | 2024-07-05 13:56 | MHPN_ITS ---
Date of service: 07/05/24 Time of Service: 09:00 Mental Health Emergency Note Release [facility] release signed:: No Reason for Visit anxiety/ Panic, SI/HI In the last 2 weeks has the pt presented for ES prior to today?: Yes, presented at [facility] Asssessment/Mental Status Appearance: Disheveled Attitude: Guarded Behavior: Repetitive movements Speech: Hesitant Affect: Cogruent with mood Mood: Sad, Stressed, Depressed and Anxious Thought process: Poverty of content Hallucinations: yes, (denies AH, observed paranoia, possible responding to internal stimuli, eyes wandering, avoidant ) Other Delusions: yes, Persectory/Paranoid Attention: Wandering and Inattention Perception: Not impaired Orientation: Fully orientated Memory: Intact Insight: Fair and Poor Judgement: Fair and Poor Impression Client is a 39 year old female presenting via [facility] for crisis reassessment after arriving via EMS to [facility] on 07/04/2024 due to panic attack, SI and HI. After initial assessment a telepsych was requested by [facility] provider on 07/04/2024. Telepsych reported Patient is at elevated risk of danger to self. Patient presently meets criteria for inpatient psychiatric hospitalization. She has been in therapy and has been working on processing some past traumatic episodes, triggering anxiety and panic like episodes, thoughts of harming herself (without plan) and thinks that she has been emotionally abusive towards her mother. She feels like a burden on her mother and wants to improve her relationship with her. She denied any active thoughts to harm her mother. She is alert and oriented, denied any hallucinations at this time but admits to feeling paranoid that people are watching her and might try to harm her. She was admitted last month and her quetiapine was increased which has helped her but it seems some past emotions were triggered making her anxiety worse. Today, 07/05/2024 this senior technical writer met client 2 x within a 2 hour period. First encounter, Client presents orientated across all spheres, client hesitant and struggles with attention when communicating with this senior technical writer. Avoided eye contact, restless. reports lack of appetite, sleep disrupted, denies SI and HI, observed covered face with blanket when asked by this senior technical writer around lethality. Met with client second time, more cooperative, hesitant and guarded, reported HI daily, SI due to feelings of being followed/ paranoia. Client during first encounter showed poverty in content, covering face and body with blanket, uncooperative, restless, and avoidant. During second encounter ct was more amendable to speak to this writing reported I don't know if I should stay or go. ct presented with paranoia. When asked reasons ct felt like she should go, ct responded its nice outside, when asked reasons for ct felt she should stay ct reported to give my mom a break. Ct reported daily feelings of being on edge, feelings that others are after her. When asked what behaviors/ actions are doing when having those feelings ct responded i scream and yell and want to hurt my mom, I don't want to kill her but want to hurt her ct reported thought of SI are triggered. Ct reported feeling scared and thoughts of being followed occur daily, increasing panic and reactivity while in home. Ct reported trauma hx and reported not wanting to disclose but identifies that being a trigger to feelings of being unsafe and paranoia. Ct amendable after second encounter for voluntary placement due to no changes in environment, and not yet establishing treatment so symptoms and events that took place for ct to arrive at [facility] on 07/04/2024. Ct identifies periods of impulsivity, periods of anhedonia, feelings of being a burden, and negative self thoughts. Ct amendable to remain at [facility] Zone B awaiting voluntary placement. Plan/Disposition Recommended Disposition: Hospitalization facilities contacted. Plan: Awaiting voluntary placement at [facility] Zone B, referrals to all hospitals [facility], , [facility], Facilities contacted if Applicable [facility] (Referral submitted ) Not accepted, No bed available [facility] (Referral submitted ) Not accepted, No bed available [facility] (Referral submitted ) [facility], No bed available Reports/communication Outcome discussed with: ED/Personnel
--- NOTE | 2024-07-05 15:36 | CMSP_ITS ---
Date of service: 07/05/24 Time of Service: 15:36 Care Management Safety Plan Status Status: Voluntary Reason for Wait Reason for Wait: Inpatient Admission Safety Plan Safety Plan: VOLUNTARY FOR INPATIENT PSYCHIATRIC STABILIZATION.? Patient is appropriate in all interactions since arriving at [facility]; Pt has demonstrated appropriate coping and communication skills, has articulated her needs and concerns and is fully engaged during staff interactions. Safety plan has been established with patient, and care team, to adhere to patient goals, identify restrictions based on behavioral status, address nutrition, and determine allowed personal belongings, tools for hygiene and personal care. Determine level of activity including ambulation, level of supervision, visitors, and determine privileges based on behaviors and level of engagement by pt. VOLUNTARY SAFETY PLAN: 1. Will remain on suicide precautions, in paper clothes 2. Will remain in Zone B under direct supervision of one-on-one staff at all times provided by [employer]; [employer], BALANCE WHEEL HAND FILER contractor general building. 3. May have paper cups, plates, finger foods as well as a cardboard spoon with which to eat meals. 4. Follow [facility] Management of the Admitted Behavioral Health Patient policy. 5. Shower available in Zone B without restriction. 6. Personal belongings-soft items permitted at RN discretion. 7. Visitors-none at this time. 8. Activities: soft cart items approved per RN discretion. 9.? Bathroom available in Zone B without restriction. 10. Phone: limited to [facility] cordless phone at RN discretion. Due to VOLUNTARY status, if patient wishes to leave [facility], staff will contact [facility] Crisis Screener ([phone]) and Acupuncturist ([phone]) as soon as possible. In the event of elopement, notify [facility] Police ([phone]). Patient is currently voluntarily at [facility] and seeking inpatient admission when a bed becomes available. [facility] Frontline Production Tester will continue seeking place ent. Please contact the Acupuncturist ([phone]) and [facility] Production Tester ([phone]) for any needed changes in the Safety Plan. Safety plan has been provided to interdepartmental care team.
--- NOTE | 2024-07-05 15:36 | PDOC.CMSAFE ---
Date of service: 07/05/24 Time of Service: 15:36 Care Management Safety Plan Status Status: Voluntary Reason for Wait Reason for Wait: Inpatient Admission Safety Plan Safety Plan: VOLUNTARY FOR INPATIENT PSYCHIATRIC STABILIZATION.? Patient is appropriate in all interactions since arriving at [facility]; Pt has demonstrated appropriate coping and communication skills, has articulated her needs and concerns and is fully engaged during staff interactions. Safety plan has been established with patient, and care team, to adhere to patient goals, identify restrictions based on behavioral status, address nutrition, and determine allowed personal belongings, tools for hygiene and personal care. Determine level of activity including ambulation, level of supervision, visitors, and determine privileges based on behaviors and level of engagement by pt. VOLUNTARY SAFETY PLAN: 1. Will remain on suicide precautions, in paper clothes 2. Will remain in Zone B under direct supervision of one-on-one staff at all times provided by [employer]; [employer], PICTURE HANGER boring machine operator. 3. May have paper cups, plates, finger foods as well as a cardboard spoon with which to eat meals. 4. Follow [facility] Management of the Admitted Behavioral Health Patient policy. 5. Shower available in Zone B without restriction. 6. Personal belongings-soft items permitted at RN discretion. 7. Visitors-none at this time. 8. Activities: soft cart items approved per RN discretion. 9.? Bathroom available in Zone B without restriction. 10. Phone: limited to [facility] cordless phone at RN discretion. Due to VOLUNTARY status, if patient wishes to leave [facility], staff will contact [facility] Crisis Screener ([phone]) and [employer] ([phone]) as soon as possible. In the event of elopement, notify [facility] Police ([phone]). Patient is currently voluntarily at [facility] and seeking inpatient admission when a bed becomes available. [facility] Frontline Audiovisual Librarian will continue seeking placement. Please contact the [employer] ([phone]) and [facility] Audiovisual Librarian ([phone]) for any needed changes in the Safety Plan. Safety plan has been provided to interdepartmental care team.
[2024-07-05] MEDS: traZODone 50 MG TAB 100 MG PO (19:46)
--- NOTE | 2024-07-05 23:46 | W.EDPROG ---
Date of service: 07/05/24 Time of Service: 23:46 Medical Decision Making This patient was signed out to me. Please see previous notes for H&P and initial eval. In brief, 39yo F with PTSD and SI, medically cleared pending voluntary placement. Overnight no acute events, pt appeared to be sleeping comfortably. Morning vital signs yesterday with tachycardia; requested repeat when pt awake. Benefit of allowing restful sleep given current psychiatric crisis outweighs that of repeat vital signs at this time, pt reportedly with an uneventful day and had no physical complaints. Will be signed out to oncoming physician; plan remains as above. Quality:[facility] Health Related Social Needs: No Data to Display Sign Out Sign Out Data: Sign Out Comment: SI, HI, [facility] and tele psych consult obtained, recommending placement. Voluntary at the moment Last updated by Bereket Shepard MD at 07/04/24 23:56 Sign Out Comment: PTSD, OCD, here with SI/HI, pending voluntary placement. May meet involuntary criteria should she wish to leave. Last updated by Shilpa Flores MD at 07/05/24 07:04 Sign Out Comment: 39-year-old female patient with a history of PTSD, OCD, here with suicidal and homicidal ideation, voluntarily boarding awaiting final placement. Did briefly want to leave, responded really well to motivational interviewing and elected to stay for ongoing help. No restraints on my shift. Last updated by Vinita Leal MD at 07/05/24 15:57 Sign Out Comment: voluntary, awaiting placement Last updated by Bereket Shepard MD at 07/05/24 23:39 Discharge Plan Discharge Details Chief Complaint: PsychEval Primary Care Provider: Juana Saavedra ED Provider: Shilpa Flores Home Meds and New Rx's Prescriptions: No Action trazodone 100 mg tablet 100 mg PO QHS escitalopram oxalate 10 mg tablet 10 mg PO DAILY Rx Instructions: per [place] discharge ferrous sulfate [FeroSul] 325 mg (65 mg iron) tablet 325 mg PO DAILY Rx Instructions: per [place] discharge escitalopram oxalate 20 mg tablet 20 mg PO DAILY Rx Instructions: per [place] discharge quetiapine [Seroquel XR] 150 mg tablet extended release 24 hr 150 mg PO DAILY Rx Instructions: per Elie childers hydroxyzine pamoate 50 mg capsule 50 mg PO QID PRN Rx Instructions: per Elie childers trazodone 50 mg tablet 25 mg PO Q6H PRN PRN Rx Instructions: per Elie childers
--- NOTE | 2024-07-06 08:39 | ED.PROG_ITS ---
Date of service: 07/06/24 Time of Service: 08:00 Medical Decision Making In brief, this is a 39-year-old female patient with a history of OCD and PTSD who is boarding in our emergency department voluntarily awaiting placement for suicidal and homicidal ideation. The patient was medically cleared and has not required any chemical or physical restraint. She has been taking her daily meds as prescribed. During my shift, the patient was evaluated by KIMBERLY rock, and she has been reviewed by Claudia. Shortly after that interaction, the patient came out of her room and stated that she wanted to go home. This provider evaluated the patient at bedside, and I found her to be very perseverative on going home, and unwilling to engage in motivational interviewing techniques, discussion of details of changes in her feelings, etc. The patient has a notable lack of insight regarding the lack of treatment that she receives here, the need for ongoing management in the inpatient psychiatric setting. Given this change and patient desires, I did reach out to [facility] to reevaluate the patient. After that conversation the patient was amenable to staying voluntarily, was accepted to [facility] and doc to doc report was performed. She was transferred from our department without incident and remained hemodynamically appropriate, calm, cooperative, and comfortable while under my care. Vinita Leal MD Medical Records Medical records reviewed: Yes I reviewed the patient's medical records. Lab Data Lab results reviewed: Yes I reviewed the patient's lab results. Quality:[facility] Health Related Social Needs: No Data to Display Sign Out Sign Out Data: Sign Out Comment: SI, HI, [facility] and tele psych consult obtained, recommending placement. Voluntary at the moment Last updated by Bereket Shepard MD at 07/04/24 23:56 Sign Out Comment: PTSD, OCD, here with SI/HI, pending voluntary placement. May meet involuntary criteria should she wish to leave. Last updated by Shilpa Flores MD at 07/05/24 07:04 Sign Out Comment: 39-year-old female patient with a history of PTSD, OCD, here with suicidal and homicidal ideation, voluntarily boarding awaiting final nely cement. Did briefly want to leave, responded really well to motivational interviewing and elected to stay for ongoing help. No restraints on my shift. Last updated by Vinita Leal MD at 07/05/24 15:57 Sign Out Comment: voluntary, awaiting placement Last updated by Bereket Shepard MD at 07/05/24 23:39 Sign Out Comment: PTSD, OCD, SI, pending voluntary placement. Last updated by Shilpa Flores MD at 07/06/24 07:00 Discharge Plan Disposition Patient Disposition: Psychiatric Hospital/Unit Specific Psychiatric Facility: [facility] Condition: Stable Discharge Details Chief Complaint: PsychEval Clinical Impression: OCD (obsessive compulsive disorder), MDD (major depressive disorder), Suicidal ideation, Homicidal ideation Primary Care Provider: Juana Saavedra ED Provider: Vinita Leal Grady Meds and New Rx's Prescriptions: No Action trazodone 100 mg tablet 100 mg PO QHS escitalopram oxalate 10 mg tablet 10 mg PO DAILY Rx Instructions: per [place] discharge ferrous sulfate [FeroSul] 325 mg (65 mg iron) tablet 325 mg PO DAILY Rx Instructions: per [place] discharge escitalopram oxalate 20 mg tablet 20 mg PO DAILY Rx Instructions: per [place] discharge quetiapine [Seroquel XR] 150 mg tablet extended release 24 hr 150 mg PO DAILY Rx Instructions: per [place] discharge hydroxyzine pamoate 50 mg capsule 50 mg PO QID PRN Rx Instructions: per [place] discharge trazodone 50 mg tablet 25 mg PO Q6H PRN PRN Rx Instructions: per [place] discharge
[2024-07-06] MEDS: Citalopram 20 MG TAB PO (09:03)
[2024-07-06] MEDS: Ferrous Sulfate 325 MG TAB PO (09:13)
[2024-07-06 09:26] VITALS: BP 104/74; PULSE 101; RESP 16; TEMP 37.1; O2SAT 97
[2024-07-06] MEDS: hydrOXYzine PAMOATE 25 MG CAP 50 MG PO (11:42)
[2024-07-06 14:55] VITALS: BP 104/74; PULSE 101; RESP 16; TEMP 37.1; O2SAT 97
== END 2024-07-06 14:58 ==
PROVIDERS: Emergency Medicine; Emergency Provider Emergency Medicine; PCP Nurse Practitioner Family
DX: R45.851 Suicidal ideations (principal); R45.850 Homicidal ideations; F41.1 Generalized anxiety disorder; F32.A Depression, unspecified; F42.9 Obsessive-compulsive disorder, unspecified; F43.12 Post-traumatic stress disorder, chronic
CPT/HCPCS: 00123; 80307; 81025; 99285; J3490

== ENCOUNTER 2024-07-13 10:10 | Emergency (ER) | payer MEDICAID, SELFPAY ==
[2024-07-13] VITALS (48 sets, daily range): BP systolic 103–138; BP diastolic 64–104; PULSE 74–133; RESP 11–37; TEMP 36.8; O2SAT 87–100
--- NOTE | 2024-07-13 10:15 | RT.EKG_ITS ---
APPROVED REPORT Exam: Resting ECG Reason for Exam: overdose Patient Location: E HR:121 bpm ECG Measurements Heart Rate 121 AXIS NE 147 P 65 QRSd 82 QRS 67 QT 328 T -38 QTc 468 Conclusion Sinus tachycardia 121 poor baseline no stemi
[2024-07-13 11:14] LABS: Abs Immature Grans 0.02 10^3/uL (0.0-0.06); Absolute Basophil Count 0.09 10^3/uL (0.0-0.2); Absolute Eosinophil Count 0.03 10^3/uL (0.0-0.7); Absolute Lymphocyte Count 0.83 10^3/uL (1.2-3.4); Absolute Monocyte Count 0.63 10^3/uL (0.1-0.8); Absolute Neutrophil Count 5.74 10^3/uL (1.2-6.7); Basophils % 1.2 %; Eosinophils % 0.4 %; HCT 34.3 % (36.0-46.0); HGB 10.8 g/dL (11.2-15.7); Immature Grans % 0.3 %; Lymphocytes % 11.3 %; MCH 23.3 pg (27.0-33.0); MCHC 31.5 % (32.0-36.0); MCV 74 fL (80-95); MPV 9.4 fL (8.0-11.0); Monocytes % 8.6 %; Neutrophils % 78.2 %; Platelet Count 281 10^3/uL (130-400); RBC 4.63 10^6/uL (3.93-5.22); RDW 19.9 % (11.7-14.6); RDW-SD 52.8 fL; WBC 7.34 10^3/uL (4.4-10.8); pH (Venous) 7.42 (7.31-7.41)
[2024-07-13 11:15] LABS: BE (Venous) 1 mmol/L (-2-3); HCO3 (Venous) 25 mmol/L (23-28); O2 Sat (Venous) 99 %; TCO2 (Venous) 26 mmol/L (24-29); pCO2 (Venous) 39 mmHg (41-51); pO2 (Venous) 130 mmHg
[2024-07-13 11:15] LABS: Bilirubin Negative (Negative); Blood Trace-lysed (Negative); Clarity Sl Cloudy (Clear); Glucose 250 mg/dL (Negative); Ketones 40 mg/dL (Negative); Leukocyte Esterase Small (Negative); Nitrite Negative (Negative); Urobilinogen 0.2 mg/dL (Up to 0.2)
--- NOTE | 2024-07-13 11:19 | ED.GENADUL_ITS ---
Discharge Plan Discharge Details Chief Complaint: PsychEval Clinical Impression: Intentional overdose, Anxiety, Suicide attempt by substance overdose Primary Care Provider: Juana Saavedra ED Provider: Jaime Harris Home Meds and New Rx's Prescriptions: No Action trazodone 100 mg tablet 100 mg PO QHS escitalopram oxalate 10 mg tablet 10 mg PO DAILY Rx Instructions: per [place] discharge ferrous sulfate [FeroSul] 325 mg (65 mg iron) tablet 325 mg PO DAILY Rx Instructions: per [place] discharge escitalopram oxalate 20 mg tablet 20 mg PO DAILY Rx Instructions: per [place] discharge quetiapine [Seroquel XR] 150 mg tablet extended release 24 hr 150 mg PO DAILY Rx Instructions: per [place] discharge hydroxyzine pamoate 50 mg capsule 50 mg PO QID PRN Rx Instructions: per [place] discharge trazodone 50 mg tablet 25 mg PO Q6H PRN PRN Rx Instructions: per [place] discharge HPI General Date/Time Provider Initiated Documentation: 07/13/24 10:14 . Limitations to Documentation: other (Patient unwilling to answer questions) . Information obtained by: patient and EMS . HPI Narrative: 39-year-old female with past medical history of major depressive disorder, OCD presents for evaluation after an intentional ingestion. She states that she was trying to harm herself. Patient states that she took five 100 mg trazodone tablets earlier today. EMS initially reported that this ingestion occurred 3 ho urs prior to arrival however the patient says that it was much earlier than that. She is not able to give me a time, but states that the son was not up, so least was before 6 AM. She denies any alcohol or other drug ingestions. EMS reports that the patient told her mother she had taken 5 tabs of her sort Seroquel. EMS did not enter the home, so no pill bottles are available for confirmation Related Data Home Medications ?Medication ?Instructions ?Recorded ?Confirmed trazodone 100 mg tablet 100 mg PO QHS 08/29/23 07/13/24 escitalopram oxalate 10 mg tablet 10 mg PO DAILY 06/19/24 07/13/24 escitalopram oxalate 20 mg tablet 20 mg PO DAILY 06/19/24 07/13/24 ferrous sulfate 325 mg (65 mg 325 mg PO DAILY 06/19/24 07/13/24 iron) tablet (FeroSul) hydroxyzine pamoate 50 mg capsule 50 mg PO QID PRN 06/19/24 07/13/24 quetiapine 150 mg tablet,extended 150 mg PO DAILY 06/19/24 07/13/24 release 24 hr (Seroquel XR) trazodone 50 mg tablet 25 mg PO Q6H PRN PRN 06/19/24 07/13/24 Allergies Allergy/AdvReac Type Severity Reaction Status Date / Time cats Allergy Mild Other (See Uncoded 07/13/24 10:22 Comment) General Stated Complaint: PsychEval JASKARAN: 2 Exam Narrative Exam Narrative: Review of Systems: All systems reviewed & are unremarkable except as noted in HPI and below Well-developed, anxious, flat affect, withdrawn NCAT PERRL, normal conjunctiva Tachycardic Unlabored respiratory effort clear bilaterally Nondistended abdomen soft nontender Several areas of lesions on the face and abdomen secondary to picking no focal neurologic deficits, agitated but not hyperreflexic or truly tremulous Course Vital Signs Vital signs: Vital Signs Temperature 36.8 C 07/13/24 10:15 Pulse 124 H 07/13/24 10:15 Respiratory Rate 20 07/13/24 10:15 Blood Pressure 138/104 H 07/13/24 10:15 Pulse Oximetry 99 07/13/24 10:15 Temperature 36.8 C 07/13/24 10:15 Pulse 124 H 07/13/24 10:15 Pulse 118 H 07/13/24 11:11 Respiratory Rate 17 07/13/24 11:11 Respiratory Effort Normal 07/13/24 10:15 Blood Pressure 138/104 H 07/13/24 10:15 Blood Pressure Position Sitting 07/13/24 10:15 Pulse Oximetry 97 07/13/24 11:11 Oxygen Delivery Method Room Air 07/13/24 10:15 Oxygen Flow Rate 0 07/13/24 10:15 Pain Level 0 07/13/24 10:15 Lab/Test Results Lab/Test Results: Laboratory Tests Range/Units 07/13/24 07/13/24 10:43 10:51 VBG pH (7.31-7.41) 7.42 H VBG pCO2 (41-51) mmHg 39 L VBG pO2 mmHg 130 VBG HCO3 (23-28) mmol/L 25 VBG Total CO2 (24-29) mmol/L 26 VBG O2 Saturation % 99 VBG Base Excess (-2-3) mmol/L 1 Urine Color (Yellow) Yellow Urine Clarity (Clear) Sl Cloudy Urine pH (5-8) 7.0 Ur Specific [place] (1.005-1.025) 1.020 Urine Protein (Neg-Trace) mg/dL Negative Urine Ketones (Negative) mg/dL 40 H Urine Blood (Negative) Trace-lysed H Urine Nitrite (Negative) Negative Urine Bilirubin (Negative) Negative Urine Urobilinogen (Up to 0.2) mg/dL 0.2 Ur Leukocyte Esterase (Negative) Small H Urine Glucose (Negative) mg/dL 250 H POC- Test(urine) Negative Medical Decision Making Emergent evaluation of intentional self-harm ingestion. Patient reported to take either 500 mg of trazodone or 750 mg of Seroquel. The patient is noted to be tachycardic, not obtunded, not hypotensive. I did discuss with poison control. They report that with the trazodone injection there is a risk of serotonin syndrome but very less likely. With the Seroquel they recommend monitoring for anticholinergic symptoms. They do recommend a 6-hour observation. On my examination the patient is not really cooperating or answering questions. She had to be asked repeatedly to undress given a gown and get IV access. Given her ingestion, will require medical clearance prior to any psychiatric placement. Will monitor vital signs and symptoms. And as well as lab work. EKG reviewed and independently interpreted. Sinus tachycardia 124 baseline poor no stemi 1300 Discussed treatment plan with the patient. She is sitting in bed holding her knees rocking very agitated. She just keeps saying I do not going to because I took 5 trazodone. She is having difficulty following commands not because she cannot hear me or understand the commands, but she is intentionally disregarding them. I have informed her that she needs to take the Ativan in order to feel better and to achieve medical clearance. 1515 Patient's tachycardia has resolved and she is much more calm after the IV Ativan. She is approaching the appropriate window of observation and at that time [facility] will be consulted for evaluation. Quality:[facility] Health Related Social Needs: No Data to Display PFSH All Active Problems (Updated 07/13/24 @ 15:20 by Jaime Harris MD) Suicide attempt by substance overdose (Acute) Anxiety (Chronic) Intentional overdose (Acute) Homicidal ideation (Acute) OCD (obsessive compulsive disorder) (Acute) MDD (major depressive disorder) (Chronic) DVT prophylaxis (Acute) Suicidal ideation (Acute) Medical History Discharge planning issues Sudden-onset sensorineural hearing loss Menorrhagia with irregular cycle Tinnitus of left ear Borderline personality disorder Panic anxiety syndrome Anxiety and depression Family History Mother No problems noted. Father , 52 Cancer Prostate Brother No problems noted. Social History Smoking/Tobacco Use Status: Never Second Hand Exposure: No Smoking risk assessment performed?: Yes Alcohol Intake: former Drug use: Never Substance use type: does not use Caregiver/Support person: No Household members: other Details: Mother Housing: house Do you need help understanding health information?: Never Pets and animals: No Sexually active: No Do you think of yourself as: straight/heterosexual Current gender identity: female What is your relationship status?: never How often do you talk on the phone with friends or family?: decline to answer How often do you get together with friends or relatives?: decline to answer How often do you attend gnosticist or cheondoism services?: decline to answer Do you belong to any clubs or organized social groups?: no Panel score (0-1 are the most socially isolated patients): 0 What type of physical activity do you participate in: none Frequency: does not exercise Keerthi/Advent: No preference Special keerthi needs: No Seatbelt use: always Drive intox or ride w/intox courtesy car driver: No Do you feel safe at home: Yes Do you feel safe in your relationship?: Yes Additional Social history: lives with mother mental health
[2024-07-13 11:24] LABS: Bacteria Moderate HPF (Negative); Epithelial Cells Many HPF (Negative)
[2024-07-13 11:25] LABS: C & S Indicated? No/Sq. Contamination; Casts Negative LPF (Negative); Crystals Negative HPF (Negative); Mucus Trace (Negative)
[2024-07-13 11:29] LABS: *AMPHETAMINES SCREEN URINE Negative (Negative); *BARBITURATES SCREEN URINE Negative (Negative); *BENZODIAZEPINES SCREEN URINE Negative (Negative); Cannabinoids THC Negative (Negative); Cocaine Screen,Urine Negative (Negative); METHADONE URINE SCREEN Negative (Negative); OPIATES URINE SCREEN Negative (Negative)
[2024-07-13 11:29] LABS: ALT 19 U/L (14-59); AST 17 U/L (15-37); Albumin 4.6 g/dL (3.4-5.0); Alkaline Phosphatase 48 U/L (46-116); Anion Gap 13.7 mmol/L (3-11); BUN 10 mg/dL (7-18); Bilirubin, Total 0.53 mg/dL (0.2-1.0); CO2 26.3 mmol/L (21.0-32.0); CREATININE 0.7 mg/dL (0.55-1.02); Chloride 101 mmol/L (98-107); Estimated GFR 114.16 (mL/min/1.73m2); Glucose 90 mg/dL (74-106); Potassium 3.7 mmol/L (3.5-5.1); Sodium 141 mmol/L (136-145); Total Protein 8.1 g/dL (6.4-8.2)
[2024-07-13 11:30] LABS: Salicylate < 2.8 mg/dL (<2.8)
[2024-07-13 11:32] LABS: Anisocytosis 1+; Diff Comment RBC Morph Reviewed; Hypochromasia 1+; Poikilocytes 1+; Polychromasia Present
[2024-07-13 11:33] LABS: ETHANOL BLOOD < 3.0 mg/dL (<10)
[2024-07-13 11:34] LABS: Tricyclic Antidepressants Negative (Negative)
[2024-07-13 11:35] LABS: Acetaminophen < 2 ug/mL (10-30); HCG Qual (Serum) Negative
[2024-07-13] MEDS: LORazepam 2 MG/ML VIAL IVP (13:42)
--- NOTE | 2024-07-13 15:37 | NUR.NOTE ---
Pts mother (Renee) called at 1530. Reports that pt was released from [facility] inpatient facility on Sunday. Since being home, Renee has monitored pt's medications. States for the past few weeks, pt has experienced increased paranoia and bizarre behavior, believing people are after her. Stated this is not her typical mood presentations with OCD, anxiety and MDD. Pt ran into mothers bedroom at 8 Am, states she took 5 Trazadone (500 mg each), unsure if she actually took these. Mom states pt attempted to throw up in the toilet and reports that pt continued to state I'm going to . Pt then called for help. Pt arrived here, anxious, and endorses SI with plan to take medications and overdose. States event was an attempt at self-harm. Pt being monitored, VSS and NKHS to evaluate at 4PM per physician. Will continue 1:1 sitter, suicide precautions, and to observe. Mother is on Pts HIPAA, and would like update on disposition when decisions have been made. Physician made aware of conversation with mom. Luis M Rubio Nursing Note:
[2024-07-13] MEDS: LORazepam 1 MG TAB 2 MG PO (18:31)
--- NOTE | 2024-07-13 19:07 | PDOC.MHCN_ITS ---
Date of service: 07/13/24 Time of Service: 16:30 PHQ-9 Over the last 2 weeks, how often have you been bothered by any of the following problems? 1. Little interest or pleasure in doing things: nearly every day 2. Feeling down, depressed, or hopeless: nearly every day 3. Trouble falling or staying asleep, or sleeping too much: more than half the days 4. Feeling tired or having little energy: more than half the days 5. Poor appetite or overeating: more than half the days 6. Feeling bad about yourself - or that you are a failure or have let yourself and your family down: nearly every day 7. Trouble concentrating on things, such as reading the newspaper or watching television: nearly every day 8. Moving or speaking so slowly that other people could have noticed? - Or the opposite - being so fidgety or restless that you have been moving around a lot more than usual: nearly every day 9. Thoughts that you would be better off or of hurting yourself in some way: nearly every day Total score: 24 If you checked off any problems, how difficult have these problems made it for you to do your work, take care of things at home, or get along with other people?: very difficult PHQ-9 Results: Positive Source: Developed by Drs. Ramón Fuentes, Vaishali Mora, Edison Azevedo and colleagues, with an educational constanza from [employer]. Suicide Severity Rate CSSRS Have you wished you were or wished you could go to sleep and not wake up?: Yes Have you actually had any thoughts of killing yourself?: Yes CSSRS2 Have you been thinking about how you might do this?: Yes Have you had these thoughts and had some intention of acting on them?: Yes Have you started to work out or worked out the details of how to kill yourself? Do you intend to carry out this plan?: Yes CSSRS3 Have you ever done anything, started to do anything or prepared to do anything to end your life?: Yes CSSRS4 Was this within the past three months?: Yes Screening Score Total Score: 8 Screening: Positive Mental Health Emergency Note Release HS release signed:: Yes Reason for Visit The client is known to [facility] and receive services through the adult outpatient program. Client has been hospitalized numerous times and was discharged from inpatient treatment at [facility] on Sunday07/11/24 for anxiety and suicidal ideations. before within the last year. The client has a history of missed appointments, but the only missed appointments typically are when she is in treatment. Today the client presented to [facility] ED via EMS after she reported to her mother that she intentionally overdosed on 5 of her trazadone medications, but then told EMS and the provider at [facility] that she took 5 Seroquel. This senior copywriter meets with the client in person at [facility] ED. In the last 2 weeks has the pt presented for ES prior to today?: Yes, presented at [facility] ED Client Information Client is: Adult Outpatient Well Housed: Yes Current Treatment Team if applicable First care guest service team leader: Name: Olivia Angulo Role: Outpatient therapist at [facility] Contact Info: [phone] Second care guest service team leader: Name: Belem Cole Role: Medication provider at [facility] Contact Info: [phone] Non Suicidal Self Injury Current: Yes, Intentional overdose of either Trazadone or Seroquel History: No Safety Risk/Harm to Self or Others Current Ideation to Harm Self or Others: Yes to self. (The client is currently endorsing suicidal ideations. The client also reports that the intentional overdose today was with an intent to end her life. On a scale of 0-10 with 0 being that she is going to be safe and 10 being that she is going to find a way to end her life she self reports a 7/10. ) Intent: yes, has intent. Plan: no.does not have a plan. History of suicide attempt: No history of suicide attempt reported Risk: Does risk to harm exist?: yes. Risk: Moderate Risk Asssessment/Mental Status Appearance: Disheveled Attitude: Cooperative and Guarded Behavior: Unremarkable Speech: Soft and Slow Affect: Flat and Cogruent with mood Mood: Anxious Thought process: Unremarkable Hallucinations: yes, Visual Delusions: yes, Persectory/Paranoid Attention: Poor concentration Perception: Other Orientation: Fully orientated Memory: Intact Insight: Poor Judgement: Poor Neurovegetative Symptoms Sleep: No change Appetitie: No change Interests: Decrease Energy: Decrease Libido: Not applicable Substance Use: Do you use nicotine?: No Have you used substances in the last 7 days?: No Additional Issues: Assaultive/Threatening Behavior: No Medical Concerns: No Client engaged in active self harm w/weapon: No Threatening to run away: No Child reported abuse/neglect: No Voluntarily presenting for services: Yes Domestic violence is a concern: No Extreme Psychosis or extreme behavior is present: No Impression The client is a single 39 y/o female that is currently unemployed. The client currently resides in [place], [place] with her mother. The client answers all screening tools. This senior copywriter is not currently CAMS trained so that tool could not be utilized as of now. The client presents laying down in the hospital bed and appears to be sleeping when this senior copywriter arrives in person to [facility]. The client awakes mildly, however engages in the assessment minimally. When this senior copywriter asked her what brought her to the hospital she states: obsessive compulsive disorder, I am not sure what happened today. This senior copywriter asks if she took the extra medication with intent to and she states yes, however later in the assessment she reports that she did not. The client is currently endorsing suicidal ideations. The client also reports that the intentional overdose today was with an intent to end her life. On a scale of 0-10 with 0 b eing that she is going to be safe and 10 being that she is going to find a way to end her life she self reports a 7/10. The client reports that she administers her own medications at home and will not give them to her mother. The client also reports that she has access to sharps and medications. The client identifies her mother and brother as her deterrents. The client reported feeling scared and thoughts of being followed occur daily, increasing panic and reactivity while in home. The client reported trauma hx and reported not wanting to disclose but identifies that being a trigger to feelings of being unsafe and paranoia. Plan/Disposition Recommended Disposition: Hospitalization No. Plan: Per this writers conversation with ED provider she believes that since the client admitted to intentional overdose she believes that the client would meet EE criteria if she does not agree to stay and pursue voluntary treatment. The client is agreeable to stay and seek voluntary inpatient treatment. Referrals will be sent to all hospitals. Discussed with client care bed and referral to [facility], however she declined at this time, but should be brought up again tomorrow. Client will be re-assessed daily until placement is secured or the client is able to be safety planned back to the community. Person reported agreement to plan: Yes Reports/communication Outcome discussed with: ED/Personnel (verbal passover given to ED provider Annabella Alonso)
--- NOTE | 2024-07-14 06:57 | W.EDPROG ---
Date of service: 07/14/24 Time of Service: 06:57 Medical Decision Making Care assumed from off going provider. Patient is a 39-year-old female that presented yesterday with an intentional suicidal overdose by taking trazodone. She was recently released from inpatient psychiatric placement. She is currently medically clear and pending voluntary inpatient placement. 0900 Fever noted by nursing staff. Tylenol given. Had some increased agitation this morning. Patient has not got her Seroquel yet. Given the new fever, a flu and COVID test was obtained. I did discuss with nurse practitioner at [facility] for acceptance. And they do accept the patient for placement. Quality:[facility] Health Related Social Needs: No Data to Display Sign Out Sign Out Data: Sign Out Comment: Recent discharge from [facility] inpatient psych. This morning reportedly took 500 mg of trazodone in attempt to kill herself. Unknown actual ingestion time. Poison Control Center recommended observation time of 6 hours. Will be medically cleared at 4 PM. at that point will contact [facility] for evaluation treatment plan. anticipate need for return to inpatient treatment. Last updated by Jaime Harris MD at 07/13/24 16:13 Sign Out Comment: SI/OD trazodone AM, med clear, voluntary unless attempts to elope, [facility] accepted for AM, pending doc to doc Last updated by Annabella Dudley PA at 07/13/24 23:25 Sign Out Comment: No issues overnight pending transfer to [facility] later this morning. Last updated by Ramón Garces MD at 07/14/24 06:38 Discharge Plan Discharge Details Chief Complaint: PsychEval Clinical Impression: Intentional overdose, Anxiety, Suicide attempt by substance overdose Primary Care Provider: Juana Saavedra ED Provider: Jaime Harris Home Meds and New Rx's Prescriptions: No Action trazodone 100 mg tablet 100 mg PO QHS escitalopram oxalate 10 mg tablet 10 mg PO DAILY Rx Instructions: per [facility] discharge ferrous sulfate [FeroSul] 325 mg (65 mg iron) tablet 325 mg PO DAILY Rx Instructions: per [facility] discharge escitalopram oxalate 20 mg tablet 20 mg PO DAILY Rx Instructions: per [facility] discharge quetiapine [Seroquel XR] 150 mg tablet extended release 24 hr 150 mg PO DAILY Rx Instructions: per [facility] discharge hydroxyzine pamoate 50 mg capsule 50 mg PO QID PRN Rx Instructions: per [facility] discharge trazodone 50 mg tablet 25 mg PO Q6H PRN PRN Rx Instructions: per [facility] discharge
[2024-07-14] MEDS: Ferrous Sulfate 325 MG TAB PO (08:46)
[2024-07-14] MEDS: Escitalopram 10 MG TAB PO (08:46)
[2024-07-14 09:01] VITALS: BP 107/76; PULSE 132; RESP 20; TEMP 37.9; O2SAT 95
[2024-07-14] MEDS: Acetaminophen 500 MG TAB 1000 MG PO (09:03)
== END 2024-07-14 11:29 ==
PROVIDERS: Emergency Provider Emergency Medicine; PCP Nurse Practitioner Family
DX: T14.91XA Suicide attempt, initial encounter (principal); F41.9 Anxiety disorder, unspecified; T43.212A Poisoning by selective serotonin and norepinephrine reuptake inhibitors, intentional self-harm, initial encounter
CPT/HCPCS: 00123; 80053; 80307; 81025; 82805; 87426; 93005; 96127; 96374; 99285; 80320; 80329; 81003; 81015; 83735; 84703; 85025; 93010; J2060; J3490

== ENCOUNTER 2024-12-31 12:49 | Outpatient (REF) | payer MEDICAID, SELFPAY ==
--- NOTE | 2024-12-31 11:15 | PAPFT_PTH ---
PATIENT: Ramona Huddleston LOC: [facility] U#:[id number] AGE/SX: 39/F ROOM: RE12/31/[address]: Juana Saavedra NP : [id number] BED: DIS: 12/31/2024 SPEC #: [id number] RECD: 12/31/24 12:59 STATUS: [place] REQ #: [id number] IZZY: 12/31/24 11:[address]: Juana Saavedra DEPT: [facility] Cytology RECD BY: Annabella Miller Tissues: 1 - CX/ENDOCX FOR PAP SMEARS Procedures: PAP THIN PREP/UVM Screening HPV DNA PROBE Comments: [id number] (HPV 16 & 18/45)
== END 2024-12-31 12:50 | disposition home or self-care (01) ==
LOC: LBN 12:49
PROVIDERS: PCP Nurse Practitioner Family; Visit Provider Nurse Practitioner Family
DX: Z12.4 Encounter for screening for malignant neoplasm of cervix (principal); N76.0 Acute vaginitis
CPT/HCPCS: 88142; 87624

== ENCOUNTER → 2025-01-28 09:04 | Outpatient (BNVA) | payer MEDICARE, MEDICAID, SELFPAY | PROVIDERS: PCP Nurse Practitioner Family; Referring Provider Nurse Practitioner Family; Visit Provider Physical Therapy Assistant | DX: K64.9 Unspecified hemorrhoids (principal) | CPT/HCPCS: 99203 ==

== ENCOUNTER 2025-03-05 15:52 | Outpatient (REF) | payer MEDICARE, MEDICAID, SELFPAY | END 2025-03-05 15:53 | disposition home or self-care (01) | LOC: LBN 15:52 | PROVIDERS: PCP Nurse Practitioner Family; Visit Provider Obstetrics & Gynecology | DX: N76.0 Acute vaginitis (principal) | CPT/HCPCS: 87480; 87510; 87660 ==

== ENCOUNTER 2025-06-29 15:19 | Outpatient (REF) | payer MEDICARE, SELFPAY ==
[2025-06-29 18:20] LABS: Glucose Negative (Negative)
[2025-06-29 18:27] LABS: C & S Indicated? No; RBC 0-2 HPF (0-2); WBC 0-2 HPF (0-5)
== END 2025-06-29 15:20 | disposition home or self-care (01) ==
LOC: LBN 15:19
PROVIDERS: PCP Nurse Practitioner Family; Visit Provider Nurse Practitioner Family
DX: R39.9 Unspecified symptoms and signs involving the genitourinary system (principal); R30.0 Dysuria
CPT/HCPCS: 81003; 81015; 87480; 87510; 87660

== ENCOUNTER 2025-09-16 02:39 | Outpatient (CLI) | payer MEDICARE, SELFPAY ==
[2025-09-16 12:15] LABS: HCT 38.0 % (36.0-46.0); HGB 12.6 g/dL (11.2-15.7); MCH 28.7 pg (27.0-33.0); MCHC 33.2 % (32.0-36.0); MCV 87 fL (80-95); MPV 9.6 fL (8.0-11.0); Platelet Count 283 10^3/uL (130-400); RBC 4.39 10^6/uL (3.93-5.22); RDW 12.3 % (11.7-14.6); RDW-SD 39.2 fL; WBC 7.39 10^3/uL (4.4-10.8)
[2025-09-16 13:35] LABS: Vitamin D 25 Total 29 ng/mL (30-100)
[2025-09-16 14:05] LABS: Vitamin B12 292 pg/mL (211-911)
[2025-09-16 14:39] LABS: ALT 33 U/L (10-49); AST 26 U/L (<34); Albumin 4.6 g/dL (3.2-5.0); Alkaline Phosphatase 61 U/L (46-116); Anion Gap 7.4 mmol/L (3-11); BUN 9 mg/dL (9-23); Bilirubin, Total 0.6 mg/dL (0.2-1.2); CO2 27.6 mmol/L (20.0-31.0); Calcium 9.3 mg/dL (8.3-10.6); Chloride 105 mmol/L (98-107); Cholesterol 196 mg/dL (<200); Glucose 81 mg/dL (74-106); HDL Cholesterol 78 mg/dL (>or=50); Potassium 4.2 mmol/L (3.5-5.1); Sodium 140 mmol/L (136-145); Total Protein 7.1 g/dL (5.7-8.2)
== END 2025-09-16 02:40 | disposition home or self-care (01) ==
LOC: LBO 02:40
PROVIDERS: PCP Nurse Practitioner Family; Visit Provider Nurse Practitioner Family
DX: D64.9 Anemia, unspecified (principal); R45.851 Suicidal ideations; F42.9 Obsessive-compulsive disorder, unspecified; F32.9 Major depressive disorder, single episode, unspecified; F41.9 Anxiety disorder, unspecified; F32.A Depression, unspecified; E55.9 Vitamin D deficiency, unspecified; E78.5 Hyperlipidemia, unspecified
CPT/HCPCS: 36415; 80053; 80061; 82306; 85027; 82607